=== PATIENT | male | born 1965 | race Caucasian/White ===

== ENCOUNTER 2017-07-11 08:35 | Emergency (ER) | payer OTHER, MEDICAID, SELFPAY ==
[2017-07-11] VITALS (8 sets, daily range): BP systolic 91–147; BP diastolic 46–93; PULSE 55–81; RESP 16–18; TEMP 36.7–37.1; O2SAT 96–100; BMI 26.6
--- NOTE | 2017-07-11 | DI.CT.S_ITS ---
PROCEDURE: CT ABDOMEN PELVIS W CON INDICATIONS: SEVERE PELVIC PAIN, RECENT SURGERY TECHNIQUE: After the administration of oral and intravenous contrast, 5 mm thick sections acquired from the diaphragms to the symphysis. 5 mm thick coronal and sagittal reformats were performed. For radiation dose reduction, the following was used: automated exposure control, adjustment of mA and/or kV according to patient size. COMPARISON: None. FINDINGS: Image quality: Excellent. ABDOMEN: Lung bases: Lung bases are clear. Heart size is normal. Solid organs: Liver is normal in size and enhancement. Gallbladder is unremarkable. Biliary system is non-dilated. Pancreas enhances normally. Spleen is normal in size and enhancement. No adrenal nodules. Kidneys are normal in size and enhancement, without hydronephrosis. Peritoneum and bowel: Stomach, small bowel, and colon loops are normal in caliber and wall thickness. The appendix is thin walled and contrast filled. No free fluid or air. Nodes and vessels: No retroperitoneal or mesenteric adenopathy. Aorta and inferior vena cava are normal in caliber. Miscellaneous: No ventral hernias. PELVIS: Genitourinary: Bladder wall thickness is normal. Miscellaneous: No inguinal adenopathy. There are small bilateral fat-containing inguinal hernias. Bones: No suspicious bony lesions. A small bone island is present within the right femur. No vertebral body compression fractures. IMPRESSION: 1. No acute intra-abdominal findings. Normal appendix. 2. No findings to suggest abscess or pneumoperitoneum after recent bowel surgery. No free pelvic fluid. Dictated by: Vaishnavi Bullock M.D. on 07/11/2017 at 13:01 Approved by: Vaishnavi Bullock M.D. on 07/11/2017 at 13:05
[2017-07-11] MEDS: SODIUM CHLORIDE 0.9% 1,000 ML 150 ML IV (09:50)
[2017-07-11 10:15] LABS: Add Manual Diff / Slide Review NO; Basophils Percent Auto 0.3 % (0-2); Eosinophils Percent Auto 2.2 % (2-4); Hematocrit 42.5 % (41-53); Hemoglobin 14.9 g/dL (13.5-17.5); Lymphocytes Percent Auto 11.9 % (25-40); Mean Corpuscular Hemoglobin 31.5 PG (26-34); Mean Corpuscular Volume 89.8 fL (80-100); Monocytes Percent Auto 6.9 % (3-14); Neutrophils Absolute Auto 7700 /uL (3000-5900); Neutrophils Percent Auto 78.7 % (50-75); Platelet Count 240 X10^3/uL (150-400); Red Blood Cell Count 4.73 X10^6/uL (4.5-5.9); Red Cell Distribution Width 14.4 % (11.6-14.8); White Blood Cell Count 9.8 X10^3/uL (4.5-11.0)
[2017-07-11 10:22] LABS: Alanine Aminotransferase 31 IU/L (21-72); Albumin 4.3 g/dL (3.5-5.0); Albumin Globulin Ratio 1.1 (1.0-2.8); Alkaline Phosphatase 86 U/L (38-126); Aspartate Aminotransferase 25 IU/L (17-59); Bilirubin Total 0.4 mg/dL (0.2-1.3); Calcium 9.2 mg/dL (8.4-10.2); Estimated Glomerular Filt Rate > 60.0 mL/min (>60); Globulin 3.8 g/dL (1.7-4.1); Glucose 104 mg/dL (70-100); HEMOLYSIS < 15 (0-50); Lipase 61 U/L (23-300); Potassium 4.3 mmol/L (3.4-5.1); Sodium 140 mmol/L (137-145); Total Protein 8.1 g/dL (6.3-8.2)
--- NOTE | 2017-07-11 10:22 | PC.NURSE ---
Began Contrast at 10:20
[2017-07-11 10:41] LABS: Lactate (Lactic Acid) 0.8 mmol/L (0.7-2.1)
[2017-07-11 11:06] LABS: Procalcitonin < 0.05 ng/mL (<0.5)
[2017-07-11] MEDS: HYDROMORPHONE 1 MG INJ IV ×2 (12:10→13:30)
[2017-07-11] MEDS: ONDANSETRON 4 MG/2 ML INJ IV (12:10)
--- NOTE | 2017-07-11 14:24 | ED_ITS ---
HPI - Abdominal Pain General Chief Complaint: Abdominal Pain Stated Complaint: COMPLICATIONS FROM BOWEL SURGERY LAST MONTH Time Seen by Provider: 07/11/17 08:42 Source: patient Mode of arrival: ambulatory Limitations: no limitations History of Present Illness HPI narrative: Patient presents to the emergency department today with a chief complaint of severe abdominal pain with subjective fever, chills, nausea and dry heaves. He was straining to have a BM this morning and felt this terrible pain. NPO to food since 1700 last night, liquid since 1800 last night. MD complaint: abdominal pain Onset (ago): hour(s) Pain Consistency: constant Location: suprapubic Severity: moderate Quality: cramping, aching and fullness Radiation: none Migration to: no migration Relieving factors: nothing Exacerbating factors: bowel movement Context: recent surgery/procedure Associated symptoms: nausea, fever and chills Related Data Home Medications Medication Instructions Recorded Confirmed diazepam [Valium] 5 mg PO QID PRN 07/11/17 07/11/17 oxycodone 10 mg PO Q4HP PRN 07/11/17 07/11/17 Previous Rx's Medication Instructions Recorded ondansetron [Zofran ODT] 4 mg PO Q6H PRN #14 tab 07/11/17 oxycodone 5 mg PO Q4-6H PRN #14 cap 07/11/17 Allergies Allergy/AdvReac Type Severity Reaction Status Date / Time No Known Drug Allergies Allergy Verified 07/11/17 08:58 Review of Systems Review of Systems All systems reviewed & are unremarkable except as noted in HPI and below Constitutional Reports chills, Reports fever(s), Denies lethargy and Reports weakness Eyes Denies change in vision, Denies eye discharge, Denies irritation and Denies loss of vision Cardiovascular Denies chest pain, Denies irregular heart rhythm, Denies lightheadedness, Denies palpitations, Denies dyspnea, Denies dyspnea on exertion and Denies orthopnea Respiratory Denies cough, Denies dyspnea, Denies dyspnea on exertion and Denies wheezing Gastrointestinal Gastrointestinal: Reports abdominal pain, Denies change in bowel habits, Denies diarrhea, Reports nausea and Denies vomiting Genitourinary Denies hematuria, Denies flank pain, Denies urinary incontinence and Denies urinary urgency Musculoskeletal Denies back pain, Denies muscle weakness, Denies numbness and Denies tingling Integumentary/Breasts Denies pruritus, Denies erythema, Denies rash and Denies wounds Neurologic Denies confusion, Denies loss of vision, Denies numbness, Denies tingling and Reports weakness Psychiatric Denies anxiety, Denies confusion, Denies depression, Denies homicidal ideation and Denies suicidal ideation Endocrine Denies palpitations Allergic/Immunologic Denies wheezing PFSH Surgical History History of bowel resection (Acute) History of hemorrhoidectomy (Acute) Family History Father Hyperlipidemia Heart disease Mother Diabetes mellitus Hyperlipidemia Heart disease Social History Smoking Status: Current every day smoker Exam Narrative Exam Narrative: Pleasant 52-year-old male appears unwell and clutching the lower abdomen and pain Const General: cooperative, well developed and acute distress Nutritional Appearance: well nourished Orientation: alert, awake, oriented x3 and not confused HENMT Head: normocephalic and atraumatic Ears: external ears normal and TM's normal bilaterally Nose: external nose normal and No nasal discharge Face and sinus: sinuses nontender, face symmetric, no sinus tenderness and No dry mucous membranes Mouth: oral mucosae normal and moist mucous membranes Teeth and gingiva: dentition normal Throat: tonsils normal and uvula midline Eyes General: appearance normal, both eyes and all related structures Eyelids: eyelids normal Conjunctivae: conjunctivae normal Sclera: sclerae normal Pupils: PERRL EOM: EOM intact bilaterally Resp Effort & Inspection: normal respiratory effort, able to speak in complete sentences, no respiratory distress and no use of accessory muscles Auscultation: clear to auscultation bilaterally, no rales, no rhonchi and no wheezes GI Inspection: non-distended Palpation: soft, no hepatosplenomegaly, guarding, No pulsatile mass and No tender Auscultation: normal bowel sounds Rectal Exam: visual inspection normal, normal sphincter tone, No abnormal stool , No fissure, No heme positive stool, No hemorrhoids, No laceration and No mass Back/Spine/Pelvis Back: No CVA tenderness Cervical Spine: cervical ROM normal and No pain with cervical ROM Thoracic/Lumbar Spine: thoracic and lumbar spine normal to inspection Neuro General: alert, awake and oriented x3 Speech: speech normal Motor: muscle tone normal throughout Extrem General: full ROM, no clubbing, cyanosis or edema, no pedal edema and no calf tenderness MDM - Abdominal Pain Differential Diagnosis Differential diagnosis: Likely abdominal pain, constipation and small bowel obstruction Medical Records Attestation: I reviewed the patient's medical records. Lab Data Result diagrams: 07/11/17 09:50 07/11/17 09:50 Lab Results 07/11/17 07/11/17 07/11/17 Range/Units 09:50 09:50 09:50 WBC 9.8 (4.5-11.0) X10^3/uL RBC 4.73 (4.5-5.9) X10^6/uL Hgb 14.9 (13.5-17.5) g/dL Hct 42.5 (41-53) % MCV 89.8 (80-100) fL MCH 31.5 (26-34) PG MCHC 35.0 (30-36) % RDW 14.4 (11.6-14.8) % Plt Count 240 (150-400) X10^3/uL Neut % (Auto) 78.7 H (50-75) % Lymph % (Auto) 11.9 L (25-40) % [place] % (Auto) 6.9 (3-14) % Eos % (Auto) 2.2 (2-4) % Baso % (Auto) 0.3 (0-2) % Neut # (Auto) 7700 H (5330-6594) /uL Sodium 140 (137-145) mmol/L Potassium 4.3 (3.4-5.1) mmol/L Chloride 105.0 (98-107) mmol/L Carbon Dioxide 25.0 (22-32) mmol/L BUN 18.0 (9-20) mg/dL Creatinine 0.90 (0.66-1.25) mg/dL Estimated GFR > 60.0 (>60) mL/min BUN/Creatinine Ratio 20.0 (6-22) Glucose 104 H (70-100) mg/dL Lactate (0.7-2.1) mmol/L Calcium 9.2 (8.4-10.2) mg/dL Total Bilirubin 0.4 (0.2-1.3) mg/dL AST 25 (17-59) IU/L ALT 31 (21-72) IU/L Alkaline Phosphatase 86 (38-126) U/L Total Protein 8.1 (6.3-8.2) g/dL Albumin 4.3 (3.5-5.0) g/dL Globulin 3.8 (1.7-4.1) g/dL Albumin/Globulin Ratio 1.1 (1.0-2.8) Lipase 61 (23-300) U/L Procalcitonin < 0.05 (<0.5) ng/mL 07/11/17 Range/Units 10:15 WBC (4.5-11.0) X10^3/uL RBC (4.5-5.9) X10^6/uL Hgb (13.5-17.5) g/dL Hct (41-53) % MCV (80-100) fL MCH (26-34) PG MCHC (30-36) % RDW (11.6-14.8) % Plt Count (150-400) X10^3/uL Neut % (Auto) (50-75) % Lymph % (Auto) (25-40) % [place] % (Auto) (3-14) % Eos % (Auto) (2-4) % Baso % (Auto) (0-2) % Neut # (Auto) (4880-9297) /uL Sodium (137-145) mmol/L Potassium (3.4-5.1) mmol/L Chloride (98-107) mmol/L Carbon Dioxide (22-32) mmol/L BUN (9-20) mg/dL Creatinine (0.66-1.25) mg/dL Estimated GFR (>60) mL/min BUN/Creatinine Ratio (6-22) Glucose (70-100) mg/dL Lactate 0.8 (0.7-2.1) mmol/L Calcium (8.4-10.2) mg/dL Total Bilirubin (0.2-1.3) mg/dL AST (17-59) IU/L ALT (21-72) IU/L Alkaline Phosphatase (38-126) U/L Total Protein (6.3-8.2) g/dL Albumin (3.5-5.0) g/dL Globulin (1.7-4.1) g/dL Albumin/Globulin Ratio (1.0-2.8) Lipase (23-300) U/L Procalcitonin (<0.5) ng/mL Imaging Data CT scan - abdomen: Radiologist's impression: PROCEDURE: CT ABDOMEN PELVIS W CON INDICATIONS: SEVERE PELVIC PAIN, RECENT SURGERY TECHNIQUE: After the administration of oral and intravenous contrast, 5 mm thick sections acquired from the diaphragms to the symphysis. 5 mm thick coronal and sagittal reformats were performed. For radiation dose reduction, the following was used: automated exposure control, adjustment of mA and/or kV according to patient size. COMPARISON: None. FINDINGS: Image quality: Excellent. ABDOMEN: Lung bases: Lung bases are clear. Heart size is normal. Solid organs: Liver is normal in size and enhancement. Gallbladder is unremarkable. Biliary system is non-dilated. Pancreas enhances normally. Spleen is normal in size and enhancement. No adrenal nodules. Kidneys are normal in size and enhancement, without hydronephrosis. Peritoneum and bowel: Stomach, small bowel, and colon loops are normal in caliber and wall thickness. The appendix is thin walled and contrast filled. No free fluid or air. Nodes and vessels: No retroperitoneal or mesenteric adenopathy. Aorta and inferior vena cava are normal in caliber. Miscellaneous: No ventral hernias. PELVIS: Genitourinary: Bladder wall thickness is normal. Miscellaneous: No inguinal adenopathy. There are small bilateral fat- containing inguinal hernias. Bones: No suspicious bony lesions. A small bone island is present within the right femur. No vertebral body compression fractures. IMPRESSION: 1. No acute intra-abdominal findings. Normal appendix. 2. No findings to suggest abscess or pneumoperitoneum after recent bowel surgery. No free pelvic fluid. Dictated by: Vaishnavi Bullock M.D. on 07/11/2017 at 13:01 Approved by: Vaishnavi Bullock M.D. on 07/11/2017 at 13:05 Course Orders Ordered: ED Orders 07/11/17 09:50 Complete Blood Count AUTO DIFF Stat Comprehensive Metabolic Panel Stat Lipase Stat Procalcitonin Stat 07/11/17 10:13 CT abdomen pelvis w con Stat 07/11/17 10:15 Blood Culture Stat Lactate (Lactic Acid) Stat Discontinued Medications Hydromorphone HCl (Dilaudid) 1 mg IV NOW ONE Stop: 07/11/17 12:00 Last Admin: 07/11/17 12:10 Dose: 1 mg Hydromorphone HCl (Dilaudid) 1 mg IV NOW ONE Stop: 07/11/17 13:15 Last Admin: 07/11/17 13:30 Dose: 1 mg Sodium Chloride (Normal Saline 0.9%) 1,000 mls @ 150 mls/hr IV CONT ERNESTINE Last Infusion: 07/11/17 12:53 Dose: 0 mls/hr Admin: 07/11/17 09:50 Dose: 150 mls/hr Ondansetron HCl (Zofran) 4 mg IV Q4HR PRN PRN Reason: Nausea And Vomiting Last Admin: 07/11/17 12:10 Dose: 4 mg Consultations Consultation #1: Page to Radiology to discuss most appropriate imaging Time: 09:34 Consultation #2: I've had a discussion with [facility] surgery at regarding patient history, physical, labs and CT scan. They have no specific recommendations and are thankful for our thorough evaluation. They will reach out to the patient at home over the next few days for follow-up Time: 14:20 Last Vital Signs Temp 98.7 F 07/11/17 14:29 Pulse 81 07/11/17 14:29 Resp 16 07/11/17 14:29 BP 99/53 L 07/11/17 14:29 Pulse Ox 99 07/11/17 14:29 Discharge Plan Departure Patient Disposition: Home, Self-Care Clinical Impression: Acute pelvic pain Discharge Date/Time: 07/11/17 14:37 Interventions: ED Discharge Assessment Last Done: 07/11/17 14:31 Instructions: DI for Abdominal Pain-Adult Activity Restrictions/Additional Instructions: Your surgeons from have been notified. They will reach out to you in the next few days to arrange for follow up. Please return for worsening symptoms You have been prescribed narcotic medications. While on these medications you cannot drive or operate heavy machinery. Additionally you cannot sign legal documents or perform any duties such as this. Many people get constipated on narcotic medications so it would be advisable to discuss stool softeners with the pharmacist when you rock picker your prescription. Please understand that we cannot provide further refills of narcotics or controlled substances through the ED and your pain management will need to be through your Primary Care Provider Prescriptions: New oxycodone 5 mg capsule 5 mg PO Q4-6H PRN (Reason: pain) Qty: 14 RF: 0 ondansetron [Zofran ODT] 4 mg tablet,disintegrating 4 mg PO Q6H PRN (Reason: nausea and vomiting) Qty: 14 RF: 0 No Action diazepam [Valium] 5 mg Tablet 5 mg PO QID PRN (Reason: Spasms) RF: 0 oxycodone 10 MG tablet 10 mg PO Q4HP PRN (Reason: Pain (Scale Score 7-10)) RF: 0 Referrals: Brayden Hurst MD [Primary Care Provider] -
== END 2017-07-11 14:37 | disposition home or self-care (01) ==
PROVIDERS: Emergency Provider Emergency Medicine; Family Provider Family Medicine; PCP Family Medicine
DX: R10.2 Pelvic and perineal pain (principal)
CPT/HCPCS: 36591; 74177; 80053; 81003; 83605; 83690; 84145; 85025; 87040; 96374; 96375; 96376; 99284; 99285; J1170; J2405; Q9967

== ENCOUNTER 2017-09-17 03:25 | Emergency (ER) | payer OTHER, MEDICAID, SELFPAY ==
[2017-09-17 03:33] VITALS: BP 140/93; PULSE 74; RESP 18; TEMP 36.4; O2SAT 97; BMI 25.8
--- NOTE | 2017-09-17 03:54 | ED_ITS ---
HPI - Extremity Problem General Chief complaint: Extremity Problem,Nontraumatic Stated complaint: GOUT ATTACK Time Seen by Provider: 09/17/17 03:26 Source: patient and family Mode of arrival: ambulatory Limitations: no limitations History of Present Illness HPI Narrative: 52M with history of gout presents with severe pain in L ankle in absence of injury. Patient reports severe pain that woke him from sleep. He denies fever, chills, N/V. He took two Colchicine without relief. He denies any on going infection. Historically is gouty attacks are in the great toe, ankle or knee. MD Complaint: extremity pain Onset (ago): hour(s) Pain Consistency: constant Location: left Quality: burning and stabbing Radiation: none Relieving factors: nothing Exacerbating factors: range of motion, weight bearing and walking Associated symptoms: denies other symptoms Related Data Home Medications Medication Instructions Recorded Confirmed oxycodone 10 mg PO Q4HP PRN 07/11/17 07/11/17 colchicine 1.2 mg PO DAILY 09/17/17 09/17/17 Previous Rx's Medication Instructions Recorded ondansetron [Zofran ODT] 4 mg PO Q6H PRN #14 tab 07/11/17 oxycodone 5 mg PO Q4-6H PRN #14 cap 07/11/17 diazepam 5 mg tablet 5 mg PO QID PRN #90 tab 09/07/17 indomethacin 50 mg PO TID PRN #14 cap 09/17/17 Allergies Allergy/AdvReac Type Severity Reaction Status Date / Time No Known Drug Allergies Allergy Verified 07/11/17 08:58 Review of Systems Review of Systems All systems reviewed & are unremarkable except as noted in HPI and below Constitutional Denies chills, Denies fever(s), Denies lethargy and Denies weakness Eyes Denies change in vision, Denies eye discharge, Denies irritation and Denies loss of vision ENT Ears, Nose, Mouth, and Throat: Denies change in voice, Denies neck pain and Denies sore throat Cardiovascular Denies chest pain, Denies irregular heart rhythm, Denies lightheadedness, Denies palpitations, Denies dyspnea, Denies dyspnea on exertion and Denies orthopnea Respiratory Denies cough, Denies dyspnea, Denies dyspnea on exertion and Denies wheezing Gastrointestinal Gastrointestinal: Denies abdominal pain, Denies change in bowel habits, Denies diarrhea, Denies nausea and Denies vomiting Genitourinary Denies hematuria, Denies flank pain, Denies urinary incontinence and Denies urinary urgency Musculoskeletal Reports arthralgias, Reports joint swelling, Reports limited range of motion and Denies neck pain Integumentary/Breasts Denies pruritus, Reports erythema, Denies rash and Denies wounds Neurologic Denies confusion, Denies loss of vision and Denies weakness Psychiatric Denies anxiety, Denies confusion, Denies depression, Denies homicidal ideation and Denies suicidal ideation Endocrine Denies palpitations Hematologic/Lymphatic Denies easy bruising Allergic/Immunologic Denies wheezing PFSH Surgical History History of bowel resection (Acute) History of hemorrhoidectomy (Acute) Family History Father Hyperlipidemia Heart disease Mother Diabetes mellitus Hyperlipidemia Heart disease Social History Smoking Status: Current every day smoker Exam Narrative Exam Narrative: 52-year-old male in obvious distress, complaining of significant pain in his ankle Initial Vital Signs Initial Vital Signs: Vital Signs Temperature 97.5 F L 09/17/17 03:33 Pulse Rate 74 09/17/17 03:33 Respiratory Rate 18 09/17/17 03:33 Blood Pressure 140/93 H 09/17/17 03:33 Pulse Oximetry 97 09/17/17 03:33 Const General: cooperative, well developed and acute distress Nutritional Appearance: well nourished Orientation: alert, awake, oriented x3 and not confused [facility] Head: normocephalic and atraumatic Ears: external ears normal and TM's normal bilaterally Nose: external nose normal and No nasal discharge Face and sinus: sinuses nontender, face symmetric, no sinus tenderness and No dry mucous membranes Mouth: oral mucosae normal and moist mucous membranes Teeth and gingiva: dentition normal Throat: tonsils normal and uvula midline Eyes General: appearance normal, both eyes and all related structures Eyelids: eyelids normal Conjunctivae: conjunctivae normal Sclera: sclerae normal Pupils: PERRL EOM: EOM intact bilaterally Neck Neck: normal visual inspection, trachea midline, No lymphadenopathy, No midline deformity and No JVD Lymphatic: No lymphedema Chest Chest: normal inspection of the chest Resp Effort & Inspection: normal respiratory effort, able to speak in complete sentences, no respiratory distress and no use of accessory muscles Auscultation: clear to auscultation bilaterally, no rales, no rhonchi and no wheezes Cardio Rate: regular rate Rhythm: regular rhythm Heart Sounds: no click, no gallops, no murmurs and no rubs Pulses: normal peripheral pulses GI Inspection: non-distended Palpation: soft, no hepatosplenomegaly, No guarding, No pulsatile mass and No tender Auscultation: normal bowel sounds Back/Spine/Pelvis Back: No CVA tenderness Cervical Spine: cervical ROM normal and No pain with cervical ROM Thoracic/Lumbar Spine: thoracic and lumbar spine normal to inspection Skin General: no rashes or lesions noted, erythema, No jaundice, No petechiae and warm Neuro General: alert, oriented x3, gait normal and no focal motor deficits Speech: speech normal Extrem General: full ROM, no clubbing, cyanosis or edema, no pedal edema and no calf tenderness Left lower extremity: ankle (Erythema, pain and swelling of ankle. Warm to touch) Psych Appearance: well kempt Mental Status: mental status grossly normal Attitude: cooperative Thought Content: normal and suicidality Judgment: judgment good Procedures Joint Aspiration Joint Asp./Inject. 1: Time Out Performed: Yes Side of body: left Joint Aspirated: ankle Ultrasound Guidance: No Skin Prep: Chlorhexidine Local Anesthetic: lidocaine 1% and with bicarb Amount of anesthesia used (mL): 4 Needle Size Used: 22G Fluid Obtained: clear Total fluid obtained (mL): 2 Patient Tolerated Procedure: Well Complications: none Course Orders Ordered: ED Orders 09/17/17 04:03 Basic Metabolic Panel Stat C-Reactive Protein Quant Stat Cell Count w Diff Body Fluid Stat Complete Blood Count AUTO DIFF Stat Erythrocyte Sedimentation Rate Stat Procalcitonin Stat Uric Acid Stat 09/17/17 04:08 Body Fluid Culture Stat Crystals Body Fluid Stat Discontinued Medications Indomethacin (Indocin) 50 mg PO NOW ONE Stop: 09/17/17 03:49 Last Admin: 09/17/17 04:03 Dose: 50 mg Ketorolac Tromethamine (Toradol) 60 mg IM NOW ONE Stop: 09/17/17 03:49 Last Admin: 09/17/17 04:02 Dose: 60 mg Oxycodone/Acetaminophen (Endocet 5/325 Prepack) 1 bottle MISC SEEINSTR ONE Stop: 09/17/17 05:17 Last Admin: 09/17/17 05:25 Dose: 1 bottle Vital Signs - 8 hr 09/17/17 03:33 09/17/17 04:35 Temperature 97.5 F L Pulse Rate 74 72 Respiratory Rate 18 18 Blood Pressure 140/93 H Blood Pressure [Left Arm] 137/89 H Pulse Oximetry 97 98 MDM - Extremity (Nontraumatic) Lab Data Result diagrams: 09/17/17 04:03 09/17/17 04:03 Lab Results 09/17/17 09/17/17 09/17/17 Range/Units 04:03 04:03 04:03 WBC 11.6 H (4.5-11.0) X10^3/uL RBC 4.72 (4.5-5.9) X10^6/uL Hgb 14.4 (13.5-17.5) g/dL Hct 42.3 (41-53) % MCV 89.5 (80-100) fL MCH 30.5 (26-34) PG MCHC 34.1 (30-36) % RDW 14.6 (11.6-14.8) % Plt Count 273 (150-400) X10^3/uL Neut % (Auto) 73.4 (50-75) % Lymph % (Auto) 12.0 L (25-40) % [place] % (Auto) 10.1 (3-14) % Eos % (Auto) 4.1 H (2-4) % Baso % (Auto) 0.4 (0-2) % Neut # (Auto) 8500 H (0578-1210) /uL ESR 13 (0-15) MM/HR Sodium 142 (137-145) mmol/L Potassium 4.4 (3.4-5.1) mmol/L Chloride 103 (98-107) mmol/L Carbon Dioxide 28 (22-32) mmol/L BUN 11 (9-20) mg/dL Creatinine 1.00 (0.66-1.25) mg/dL Estimated GFR > 60.0 (>60) mL/min BUN/Creatinine Ratio 11.0 (6-22) Glucose 93 (70-100) mg/dL Uric Acid 7.6 (3.5-8.5) mg/dL Calcium 9.5 (8.4-10.2) mg/dL C-Reactive Protein 1.9 H (<1.0) mg/dL Procalcitonin < 0.05 (<0.5) ng/mL Fluid Color Fluid Appearance Fluid RBC /uL Fld Tot Nucleated Cell /uL Fluid Polynuclear WBCs % Fluid Mononuclear WBCs Fluid Eosinophils Body Fluid Clot 09/17/17 Range/Units 04:03 WBC (4.5-11.0) X10^3/uL RBC (4.5-5.9) X10^6/uL Hgb (13.5-17.5) g/dL Hct (41-53) % MCV (80-100) fL MCH (26-34) PG MCHC (30-36) % RDW (11.6-14.8) % Plt Count (150-400) X10^3/uL Neut % (Auto) (50-75) % Lymph % (Auto) (25-40) % [place] % (Auto) (3-14) % Eos % (Auto) (2-4) % Baso % (Auto) (0-2) % Neut # (Auto) (2530-2502) /uL ESR (0-15) MM/HR Sodium (137-145) mmol/L Potassium (3.4-5.1) mmol/L Chloride (98-107) mmol/L Carbon Dioxide (22-32) mmol/L BUN (9-20) mg/dL Creatinine (0.66-1.25) mg/dL Estimated GFR (>60) mL/min BUN/Creatinine Ratio (6-22) Glucose (70-100) mg/dL Uric Acid (3.5-8.5) mg/dL Calcium (8.4-10.2) mg/dL C-Reactive Protein (<1.0) mg/dL Procalcitonin (<0.5) ng/mL Fluid Color [place] Fluid Appearance Cloudy Fluid RBC 5331 /uL Fld Tot Nucleated Cell 3416 /uL Fluid Polynuclear WBCs 100 % Fluid Mononuclear WBCs Not Reportable Fluid Eosinophils Not Reportable Body Fluid Clot No clots present MDM Narrative Medical decision making narrative: DDx includes gout, cellulitis, septic arthritis, DVT vs. other Gout: painful, swollen, hx of same under similar conditions Septic arthritis: thought unlikely given arthocentesis findings Discharge Plan Departure Patient Disposition: Home, Self-Care Clinical Impression: Gout Instructions: DI for Gout Activity Restrictions/Additional Instructions: *You have been diagnosed with [ with acute gouty arthritis ] *What to do: *Take medications as directed *Follow up with your primary care provider in 2-3 days, call for an appointment. Let them know you were seen in the Emergency Department and that we ask that you be seen in follow up *Return to ER if you should have any new, worsening or concerning symptoms , such as [increasing pain, red streaks working up the leg, fever over 101 F, shaking chills, persistent vomiting, or other bothersome symptoms ] Prescriptions: New indomethacin 50 mg capsule 50 mg PO TID PRN (Reason: pain) Qty: 14 RF: 0 No Action diazepam [Valium] 5 mg tablet 5 mg PO QID PRN (Reason: Spasms) Qty: 90 RF: 0 oxycodone 10 MG tablet 10 mg PO Q4HP PRN (Reason: Pain (Scale Score 7-10)) RF: 0 oxycodone 5 mg capsule 5 mg PO Q4-6H PRN (Reason: pain) Qty: 14 RF: 0 ondansetron [Zofran ODT] 4 mg tablet,disintegrating 4 mg PO Q6H PRN (Reason: nausea and vomiting) Qty: 14 RF: 0 colchicine 0.6 mg Capsule 1.2 mg PO DAILY RF: 0
[2017-09-17] MEDS: KETOROLAC 60 MG/2 ML VIAL IM (04:02)
[2017-09-17] MEDS: INDOMETHACIN 25 MG CAPSULE 50 MG PO (04:03)
[2017-09-17 04:20] LABS: Add Manual Diff / Slide Review NO; Basophils Percent Auto 0.4 % (0-2); Eosinophils Percent Auto 4.1 % (2-4); Hematocrit 42.3 % (41-53); Hemoglobin 14.4 g/dL (13.5-17.5); Mean Corpuscular HGB Conc 34.1 % (30-36); Mean Corpuscular Hemoglobin 30.5 PG (26-34); Mean Corpuscular Volume 89.5 fL (80-100); Monocytes Percent Auto 10.1 % (3-14); Neutrophils Absolute Auto 8500 /uL (3000-5900); Neutrophils Percent Auto 73.4 % (50-75); Platelet Count 273 X10^3/uL (150-400); Red Blood Cell Count 4.72 X10^6/uL (4.5-5.9); Red Cell Distribution Width 14.6 % (11.6-14.8); White Blood Cell Count 11.6 X10^3/uL (4.5-11.0)
[2017-09-17 04:35] VITALS: BP 137/89; PULSE 72; RESP 18; O2SAT 98
[2017-09-17 04:53] LABS: Body Fluid Appearance CLOUDY; Body Fluid Color PINK
[2017-09-17 04:54] LABS: Body Fluid Clotted? NO CLOTS PRESENT
[2017-09-17 04:56] LABS: Body Fluid Tot Nucleated Cells 3416 /uL
[2017-09-17 04:57] LABS: Body Fluid Red Blood Cells 5331 /uL; Erythrocyte Sedimentation Rate 13 MM/HR (0-15)
[2017-09-17 05:10] LABS: Blood Urea Nitrogen 11 mg/dL (9-20); C-Reactive Protein Quant 1.9 mg/dL (<1.0); Calcium 9.5 mg/dL (8.4-10.2); Carbon Dioxide 28 mmol/L (22-32); Chloride 103 mmol/L (98-107); Estimated Glomerular Filt Rate > 60.0 mL/min (>60); Glucose 93 mg/dL (70-100); HEMOLYSIS < 15 (0-50); Potassium 4.4 mmol/L (3.4-5.1); Sodium 142 mmol/L (137-145); Uric Acid 7.6 mg/dL (3.5-8.5)
[2017-09-17 05:14] LABS: Polynuclear WBC Body Fluid 100 %
[2017-09-17] MEDS: OXYCODONE/APAP 5/325 PREPACK 1 BOTTLE MISC (05:25)
[2017-09-17 05:26] LABS: Procalcitonin < 0.05 ng/mL (<0.5)
[2017-09-17 05:37] VITALS: BP 122/70; PULSE 72; RESP 16; O2SAT 99
== END 2017-09-17 05:38 | disposition home or self-care (01) ==
PROVIDERS: Emergency Provider Emergency Medicine; Family Provider Family Medicine; PCP Family Medicine
DX: M10.9 Gout, unspecified (principal)
CPT/HCPCS: 20605; 36415; 80048; 84145; 84550; 85025; 85651; 86140; 89051; 89060; 96372; 99282; 99283; J1885

== ENCOUNTER 2018-01-01 15:34 | Emergency (ER) | payer OTHER, MEDICAID, SELFPAY ==
[2018-01-01 15:49] VITALS: BP 114/77; PULSE 75; RESP 18; TEMP 36.7; O2SAT 100
--- NOTE | 2018-01-01 16:19 | DI.RAD.S_ITS ---
PROCEDURE: XR ABDOMEN 1V INDICATIONS: abd pain, change in stool TECHNIQUE: One view of the abdomen acquired. COMPARISON: None. FINDINGS: Surgical changes and devices: None. Bowel: Bowel gas pattern is normal. Soft tissues: No suspicious abdominal calcifications. Visualized solid organ contours appear normal in size. Bones: No suspicious bony lesions. Dextroscoliosis centered at L2. Multilevel disc degeneration throughout the lumbar spine. IMPRESSION: No evidence of bowel obstruction. Dictated by: Deshawn Simms M.D. on 01/01/2018 at 17:04 Approved by: Deshawn Simms M.D. on 01/01/2018 at 17:05
[2018-01-01 16:34] LABS: Add Manual Diff / Slide Review NO; Basophils Percent Auto 0.5 % (0-2); Eosinophils Percent Auto 7.4 % (2-4); Hematocrit 40.2 % (41-53); Hemoglobin 13.4 g/dL (13.5-17.5); Lymphocytes Percent Auto 31.4 % (25-40); Mean Corpuscular HGB Conc 33.3 % (30-36); Mean Corpuscular Hemoglobin 30.6 PG (26-34); Mean Corpuscular Volume 91.8 fL (80-100); Monocytes Percent Auto 10.3 % (3-14); Neutrophils Absolute Auto 3700 /uL (3000-5900); Neutrophils Percent Auto 50.4 % (50-75); Platelet Count 226 X10^3/uL (150-400); Red Blood Cell Count 4.38 X10^6/uL (4.5-5.9); Red Cell Distribution Width 14.4 % (11.6-14.8); White Blood Cell Count 7.4 X10^3/uL (4.5-11.0)
[2018-01-01 16:59] LABS: Alanine Aminotransferase 33 IU/L (21-72); Albumin 4.4 g/dL (3.5-5.0); Albumin Globulin Ratio 1.3 (1.0-2.8); Alkaline Phosphatase 77 U/L (38-126); Aspartate Aminotransferase 39 IU/L (17-59); Bilirubin Total 0.2 mg/dL (0.2-1.3); Blood Urea Nitrogen 17 mg/dL (9-20); Calcium 9.3 mg/dL (8.4-10.2); Carbon Dioxide 28 mmol/L (22-32); Chloride 104 mmol/L (98-107); Estimated Glomerular Filt Rate > 60.0 mL/min (>60); Globulin 3.4 g/dL (1.7-4.1); Glucose 72 mg/dL (70-100); HEMOLYSIS < 15 (0-50); Lipase 76 U/L (23-300); Sodium 143 mmol/L (137-145); Total Protein 7.8 g/dL (6.3-8.2)
--- NOTE | 2018-01-01 17:26 | ED.ABDPAIN ---
HPI - Abdominal Pain <RE Saha-BC - Last Filed: 01/01/18 17:42> General Chief Complaint: Abdominal Pain Stated Complaint: LEFT SIDE PAIN Time Seen by Provider: 01/01/18 15:54 Source: patient Mode of arrival: ambulatory Limitations: no limitations History of Present Illness HPI narrative: Patient is a 52-year-old male who presents with chief complaint of ?I think I have a hernia. Patient states that he would like imaging to confirm the hernia. He denies any nausea, vomiting, diarrhea, fever. He denies any chest pain shortness of breath chills. He states he had a tearing sensation and burning at his left inguinal area 2 days ago when this started. Now he has pain at the location when doing physical activity. He states he can feel a poking out more when he stands up. He states that his stools are thinner. He denies any other abdominal pain. Related Data Home Medications Medication Instructions Recorded Confirmed colchicine 1.2 mg PO DAILY 09/17/17 01/03/18 Previous Rx's Medication Instructions Recorded ondansetron [Zofran ODT] 4 mg PO Q6H PRN #14 tab 07/11/17 indomethacin 50 mg PO TID PRN #14 cap 09/17/17 trazodone 50 mg tablet 50 mg PO .hs #30 tab 09/21/17 diazepam 5 mg tablet 5 mg PO BID PRN 30 Days #60 tab 01/03/18 tramadol 50 mg tablet 50 mg PO Q6H #60 tab 01/03/18 Allergies Allergy/AdvReac Type Severity Reaction Status Date / Time No Known Drug Allergies Allergy Verified 01/03/18 10:53 Review of Systems <CARLOS A Saha - Last Filed: 01/01/18 17:42> Review of Systems GENERAL: Denies chills, fatigue, malaise, fever, sweats. HEENT: Denies sinus pain, ear pain, sore throat, difficulty swallowing, dizziness. RESPIRATORY: Denies dyspnea, cough, wheezing, hemoptysis, sputum. CARDIOVASCULAR: Denies chest pain, palpitations, orthopnea, edema, GASTROINTESTINAL: See HPI : Denies dysuria, frequency, incontinence, hematuria, urinary retention. MUSCULOSKELETAL: denies weakness, joint pain, or bony pain SKIN: Denies rash, skin lesions, or other NEUROLOGIC: Denies weakness, headache, numbness, change in speech, confusion, seizures, incoordination. PSYCHIATRIC: No concerning psychosocial issues. 12 point review of systems is negative except for those stated above Exam <FRANCOIS Saha - Last Filed: 01/01/18 17:42> Narrative Exam Narrative: GENERAL: This is a well-nourished, well-developed patient, in no acute distress HEAD: Atraumatic. Normocephalic. No temporal or scalp tenderness. EYES: Pupils equal round and reactive. Extraocular motions intact. No scleral icterus. No injection or drainage. ENT: Nose without bleeding, purulent drainage or septal hematoma. Throat without erythema, tonsillar hypertrophy or exudate. Uvula midline. Airway patent. NECK: Trachea midline. No JVD or lymphadenopathy. Supple, nontender, no meningeal signs. CARDIOVASCULAR: Regular rate and rhythm without murmurs, gallops, or rubs. RESPIRATORY: Clear to auscultation. Breath sounds equal bilaterally. No wheezes, rales, or rhonchi. GASTROINTESTINAL: Abdomen soft, non-tender, nondistended. No hepato-splenomegaly, or palpable masses. No guarding. Active bowel sounds all 4 quadrants. Palpable hernia left inguinal which is soft. Reduces easily. Smaller when patient is standing. EXTREMITIES: No clubbing, cyanosis, or edema. No joint tenderness, effusion, or edema noted. BACK: Nontender without deformity or crepitance. No flank tenderness. NEURO: AOx3. SKIN: No rash or erythema. Initial Vital Signs Initial Vital Signs: Vital Signs Temperature 98.1 F 01/01/18 15:49 Pulse Rate 75 01/01/18 15:49 Respiratory Rate 18 01/01/18 15:49 Blood Pressure 114/77 01/01/18 15:49 Pulse Oximetry 100 01/01/18 15:49 <Kelly Coyle DO - Last Filed: 01/04/18 16:04> Initial Vital Signs Initial Vital Signs: Vital Signs Temperature 98.1 F 01/01/18 15:49 Pulse Rate 75 01/01/18 15:49 Respiratory Rate 18 01/01/18 15:49 Blood Pressure 114/77 01/01/18 15:49 Pulse Oximetry 100 01/01/18 15:49 Course <FRANCOIS Saha - Last Filed: 01/01/18 17:42> Orders Ordered: ED Orders 01/01/18 16:19 XR abdomen 1V Stat 01/01/18 16:25 Complete Blood Count AUTO DIFF Stat Comprehensive Metabolic Panel Stat Lipase Stat Vital Signs - 8 hr 01/01/18 15:49 Temperature 98.1 F Pulse Rate 75 Respiratory Rate 18 Blood Pressure 114/77 Pulse Oximetry 100 <Kelly Coyle DO - Last Filed: 01/04/18 16:04> Orders Ordered: ED Orders 01/01/18 16:19 XR abdomen 1V Stat 01/01/18 16:25 Complete Blood Count AUTO DIFF Stat Comprehensive Metabolic Panel Stat Lipase Stat Vital Signs - 8 hr 01/01/18 15:49 Temperature 98.1 F Pulse Rate 75 Respiratory Rate 18 Blood Pressure 114/77 Pulse Oximetry 100 MDM - Abdominal Pain <FRANCOIS Saha - Last Filed: 01/01/18 17:42> Lab Data Attestation: I reviewed the patient's lab results. Result diagrams: 01/01/18 16:25 01/01/18 16:25 Lab Results 01/01/18 01/01/18 Range/Units 16:25 16:25 WBC 7.4 (4.5-11.0) X10^3/uL RBC 4.38 L (4.5-5.9) X10^6/uL Hgb 13.4 L (13.5-17.5) g/dL Hct 40.2 L (41-53) % MCV 91.8 (80-100) fL MCH 30.6 (26-34) PG MCHC 33.3 (30-36) % RDW 14.4 (11.6-14.8) % Plt Count 226 (150-400) X10^3/uL Neut % (Auto) 50.4 (50-75) % Lymph % (Auto) 31.4 (25-40) % [place] % (Auto) 10.3 (3-14) % Eos % (Auto) 7.4 H (2-4) % Baso % (Auto) 0.5 (0-2) % Neut # (Auto) 3700 (4196-8979) /uL Sodium 143 (137-145) mmol/L Potassium 4.0 (3.4-5.1) mmol/L Chloride 104 (98-107) mmol/L Carbon Dioxide 28 (22-32) mmol/L BUN 17 (9-20) mg/dL Creatinine 1.00 (0.66-1.25) mg/dL Estimated GFR > 60.0 (>60) mL/min BUN/Creatinine Ratio 17.0 (6-22) Glucose 72 (70-100) mg/dL Calcium 9.3 (8.4-10.2) mg/dL Total Bilirubin 0.2 (0.2-1.3) mg/dL AST 39 (17-59) IU/L ALT 33 (21-72) IU/L Alkaline Phosphatase 77 (38-126) U/L Total Protein 7.8 (6.3-8.2) g/dL Albumin 4.4 (3.5-5.0) g/dL Globulin 3.4 (1.7-4.1) g/dL Albumin/Globulin Ratio 1.3 (1.0-2.8) Lipase 76 (23-300) U/L Point of care testing: Urine Dip Bedside Urine Glucose Negative Bedside Urine Bilirubin - Negative Bedside Urine Ketone - Negative Urine Specific [place] 1.025 Bedside Urine Occult Blood - Negative Bedside Urine pH 6.0 Bedside Urine Protein - Negative Bedside Urine Urobilinogen - Negative Bedside Urine Nitrite - Negative Bedside Urine Leukocytes - Negative Esterase Imaging Data Abdominal x-ray: Radiologist's impression: [place] [address] XRay Report Signed Patient: Carson Kumar JMR#: [id number] : 1965Acct:[id number] Age/Sex: 52 / MDate of Service: 01/01/18 Loc: ED Accession Number: [id number] Procedure: XR abdomen 1V Ordering Provider: Kelly Dickerson PROCEDURE: XR ABDOMEN 1V INDICATIONS: abd pain, change in stool TECHNIQUE: One view of the abdomen acquired. COMPARISON: None. FINDINGS: Surgical changes and devices: None. Bowel: Bowel gas pattern is normal. Soft tissues: No suspicious abdominal calcifications. Visualized solid organ contours appear normal in size. Bones: No suspicious bony lesions. Dextroscoliosis centered at L2. Multilevel disc degeneration throughout the lumbar spine. IMPRESSION: No evidence of bowel obstruction. Dictated by: Deshawn Simms M.D. on 01/01/2018 at 17:04 Approved by: Deshawn Simms M.D. on 01/01/2018 at 17:05 [facility] Narrative Medical decision making narrative: Patient is a 52-year-old male who presents with chief complaint of bleeding he has a hernia. His exam is concerning for hernia. However to soft and reduces easily. He had a normal abdominal x-ray as well as normal CBC, CMP and lipase. I discussed at length follow up with his primary care provider in gave him contact information for one of her surgeons. No questions or concerns upon discharge. I discussed at length high fiber diet and fluids. Discussed return precautions of severe pain, not reducible hernia, fever etc. <Kelly Coyle, DO - Last Filed: 01/04/18 16:04> Lab Data Lab Results 01/01/18 01/01/18 Range/Units 16:25 16:25 WBC 7.4 (4.5-11.0) X10^3/uL RBC 4.38 L (4.5-5.9) X10^6/uL Hgb 13.4 L (13.5-17.5) g/dL Hct 40.2 L (41-53) % MCV 91.8 (80-100) fL MCH 30.6 (26-34) PG MCHC 33.3 (30-36) % RDW 14.4 (11.6-14.8) % Plt Count 226 (150-400) X10^3/uL Neut % (Auto) 50.4 (50-75) % Lymph % (Auto) 31.4 (25-40) % [place] % (Auto) 10.3 (3-14) % Eos % (Auto) 7.4 H (2-4) % Baso % (Auto) 0.5 (0-2) % Neut # (Auto) 3700 (3314-2893) /uL Sodium 143 (137-145) mmol/L Potassium 4.0 (3.4-5.1) mmol/L Chloride 104 (98-107) mmol/L Carbon Dioxide 28 (22-32) mmol/L BUN 17 (9-20) mg/dL Creatinine 1.00 (0.66-1.25) mg/dL Estimated GFR > 60.0 (>60) mL/min BUN/Creatinine Ratio 17.0 (6-22) Glucose 72 (70-100) mg/dL Calcium 9.3 (8.4-10.2) mg/dL Total Bilirubin 0.2 (0.2-1.3) mg/dL AST 39 (17-59) IU/L ALT 33 (21-72) IU/L Alkaline Phosphatase 77 (38-126) U/L Total Protein 7.8 (6.3-8.2) g/dL Albumin 4.4 (3.5-5.0) g/dL Globulin 3.4 (1.7-4.1) g/dL Albumin/Globulin Ratio 1.3 (1.0-2.8) Lipase 76 (23-300) U/L Point of care testing: Urine Dip Bedside Urine Glucose Negative Bedside Urine Bilirubin - Negative Bedside Urine Ketone - Negative Urine Specific [place] 1.025 Bedside Urine Occult Blood - Negative Bedside Urine pH 6.0 Bedside Urine Protein - Negative Bedside Urine Urobilinogen - Negative Bedside Urine Nitrite - Negative Bedside Urine Leukocytes - Negative Esterase Discharge Plan Departure Patient Disposition: Home Clinical Impression: Abdominal pain, Hernia Discharge Date/Time: 01/01/18 17:46 Interventions: ED Discharge Assessment Last Done: 01/01/18 17:45 Instructions: DI for Groin Hernia, DI for Abdominal Pain-Adult Activity Restrictions/Additional Instructions: Please follow-up with your primary care provider regarding your hernia concerns. I have also given you the contact information for one of our surgeons in case you want to follow-up with them. Please drink lots of fluids, and keep high-fiber diet. Please monitor for severe pain, fever nausea vomiting. Please be evaluated if any of these occur. Prescriptions: No Action tramadol 50 mg tablet 50 mg PO Q6H Qty: 60 RF: 0 diazepam [Valium] 5 mg tablet 5 mg PO BID PRN (Reason: Spasms) 30 Days Qty: 60 RF: 1 trazodone 50 mg tablet 50 mg PO .hs Qty: 30 RF: 5 ondansetron [Zofran ODT] 4 mg tablet,disintegrating 4 mg PO Q6H PRN (Reason: nausea and vomiting) Qty: 14 RF: 0 colchicine 0.6 mg Capsule 1.2 mg PO DAILY RF: 0 indomethacin 50 mg capsule 50 mg PO TID PRN (Reason: pain) Qty: 14 RF: 0 Referrals: Brayden Husrt MD [Primary Care Provider] - Khushboo Hammond MD [Physician] - <Kelly Coyle DO - Last Filed: 01/04/18 16:04> Cosign ED Attending Cosignature Attestation: I was immediately available in the department for consultation. This documentation has been reviewed and I agree with assessment and plan. Supervised by Kelly Coyle DO
== END 2018-01-01 17:46 | disposition home or self-care (01) ==
PROVIDERS: Emergency Provider Nurse Practitioner Family; Family Provider Family Medicine; PCP Family Medicine
DX: K46.9 Unspecified abdominal hernia without obstruction or gangrene (principal); R10.9 Unspecified abdominal pain
CPT/HCPCS: 36415; 74018; 80053; 81003; 83690; 85025; 99283; 99284

== ENCOUNTER → 2018-03-02 15:52 | Outpatient (CLI) | payer OTHER, MEDICAID, SELFPAY ==
--- NOTE | 2018-03-02 15:53 | DI.RAD.S_ITS ---
PROCEDURE: XR CHEST 2V INDICATIONS: Cough TECHNIQUE: 2 views of the chest were acquired. COMPARISON: [facility], , CHEST 2 VIEW, 06/06/2015, 18:55. FINDINGS: Surgical changes and devices: None. Lungs and pleura: No pleural effusions or pneumothorax. No acute consolidation. Scattered subsegmental atelectasis and/or scarring. Central airway thickening. Mediastinum: Mediastinal contours are normal. Heart size is normal. Bones and chest wall: No suspicious bony abnormalities. Soft tissues appear unremarkable. IMPRESSION: Central airway thickening suggestive of viral bronchitis or reactive airways disease. No acute consolidation. Dictated by: Deshawn Simms M.D. on 03/02/2018 at 16:12 Approved by: Deshawn Simms M.D. on 03/02/2018 at 16:13
== END ==
PROVIDERS: PCP Student in an Organized Health Care Education/Training Program; Visit Provider Physician Assistant
DX: R05 Cough (principal)
CPT/HCPCS: 71046

== ENCOUNTER → 2018-04-04 16:55 | Outpatient (CLI) | payer OTHER, MEDICAID, SELFPAY | PROVIDERS: Family Provider Family Medicine; PCP Student in an Organized Health Care Education/Training Program; Visit Provider Physician Assistant | DX: L02.91 Cutaneous abscess, unspecified (principal) | CPT/HCPCS: 87070; 87075; 87077; 87147; 87205 ==

== ENCOUNTER → 2019-03-20 10:03 | Outpatient (CLI) | payer OTHER, MEDICAID, SELFPAY | PROVIDERS: Family Provider Family Medicine; PCP Student in an Organized Health Care Education/Training Program; Visit Provider Physician Assistant | DX: L02.91 Cutaneous abscess, unspecified (principal) | CPT/HCPCS: 87070; 87077; 87147; 87186; 87205 ==

== ENCOUNTER → 2019-05-10 13:41 | Outpatient (CLI) | payer OTHER, MEDICAID, SELFPAY ==
[2019-05-10 14:34] LABS: BUN Creatinine Ratio 14.6 (6-22); Blood Urea Nitrogen 14 mg/dL (9-20); Estimated Glomerular Filt Rate > 60.0 mL/min (>60)
[2019-05-10 18:38] LABS: HIV 1 & 2 Ab/Ag 4th Gen Combo NEGATIVE (NEGATIVE)
[2019-05-11 14:45] LABS: HBsAg Screen Negative (Negative); HSV 2 IGG AB < 0.91 index (0.00-0.90); Hepatitis A Antibody IgM Negative (Negative); Hepatitis B Core Antibody IgM Negative (Negative); Hepatitis C Antibody <0.1 s/co ratio (0.0-0.9); RPR Screen Non Reactive (Non Reactive)
== END ==
PROVIDERS: Family Provider Family Medicine; PCP Student in an Organized Health Care Education/Training Program; Referring Provider Student in an Organized Health Care Education/Training Program; Visit Provider Student in an Organized Health Care Education/Training Program
DX: Z72.51 High risk heterosexual behavior (principal); N14.1 Nephropathy induced by other drugs, medicaments and biological substances; T50.8X5A Adverse effect of diagnostic agents, initial encounter
CPT/HCPCS: 36415; 80074; 82565; 84520; 86592; 86695; 86696; 87389

== ENCOUNTER → 2019-05-18 17:43 | Outpatient (CLI) | payer OTHER, MEDICAID, SELFPAY ==
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
== END ==
PROVIDERS: Family Provider Family Medicine; PCP Student in an Organized Health Care Education/Training Program; Referring Provider Student in an Organized Health Care Education/Training Program; Visit Provider Student in an Organized Health Care Education/Training Program
DX: S19.9XXA Unspecified injury of neck, initial encounter (principal); M47.22 Other spondylosis with radiculopathy, cervical region; M50.11 Cervical disc disorder with radiculopathy, high cervical region; M43.12 Spondylolisthesis, cervical region; M48.02 Spinal stenosis, cervical region; Z65.4 Victim of crime and terrorism; Z72.51 High risk heterosexual behavior
CPT/HCPCS: 72141

== ENCOUNTER 2019-05-24 06:35 | Day surgery (SDC) | payer OTHER, MEDICAID, SELFPAY ==
--- NOTE | 2019-05-24 | PATH_ITS ---
[facility] Accession Number: [id number] . 01 Material submitted: . colon - POLYP AT 35 CM . 01 Clinical history: . FLEX SIG W/POSS DILITATION . 02 Diagnosis: Colon, Polyp At 35 CM, Biopsy: Hyperplastic polyp. [facility] 05/25/2019 1223 Local . 02 Electronically signed: . Hawa Dykes MD, Pathologist NPI- [id number] . 01 Gross description: . POLYP AT 35 CM: Received in formalin are 2 fragment(s) of gabriel, soft tissue measuring 0.1 x 0.1 x 0.1 cm to 0.2 x 0.2 x 0.1 cm submitted entirely in 1 cassette(s) /[facility] 05/24/2019 1913 Local . 02 Pathologist provided ICD-10: K63.5 . 02 CPT . 012763 Performed at: 01 [facility] [address], [place], [place] [id number] MD Jose Chambers MD Phone: [phone] Performed at: 02 [facility] [place] [address] [place], [place] [id number] MD Hawa Dykes MD Phone: [phone]
[2019-05-24 07:15] VITALS: BP 104/69; PULSE 67; RESP 15; TEMP 36.3; O2SAT 97; BMI 28.1
[2019-05-24] MEDS: MIDAZOLAM 5 MG/5 ML VIAL IV (07:22)
[2019-05-24] MEDS: fentaNYL 250 MCG/5 ML INJ IV (07:23)
[2019-05-24] MEDS: LACTATED RINGERS 1,000 ML 125 ML IV (07:33)
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
[2019-05-24 09:09] VITALS: BP 107/67; PULSE 64; RESP 14; TEMP 36.6; O2SAT 96
--- NOTE | 2019-05-24 09:13 | PM.PREOP ---
Pre-operative Note Interval Note History & Physical reviewed/Exam performed by Physician: Yes Changes to H&P: No H&P completed within 30 days and has changed as indicated here:: Performed at 8:30 a.m. ASA Class (for procedural sedation): I
[2019-05-24 09:14] VITALS: BP 103/66; PULSE 67; RESP 11; O2SAT 96
[2019-05-24 09:19] VITALS: BP 116/69; PULSE 78; RESP 16; O2SAT 95
[2019-05-24 09:24] VITALS: BP 112/78; PULSE 68; RESP 14; TEMP 36.8; O2SAT 96
[2019-05-24 09:30] VITALS: BP 108/70; PULSE 70; RESP 15; TEMP 36.4; O2SAT 95
== END 2019-05-24 09:45 | disposition home or self-care (01) ==
PROVIDERS: Family Provider Family Medicine; PCP Student in an Organized Health Care Education/Training Program; Referring Provider Specialist; Visit Provider Specialist
PROC: 0DJD8ZZ Inspection of Lower Intestinal Tract, Via Natural or Artificial Opening Endoscopic (ICD-10-PCS; CPT 45378; principal; 2019-05-24 07:45)
DX: K62.5 Hemorrhage of anus and rectum (principal); K57.30 Diverticulosis of large intestine without perforation or abscess without bleeding; K62.89 Other specified diseases of anus and rectum; K63.5 Polyp of colon
CPT/HCPCS: 45331; 99152; J2250; J3010

== ENCOUNTER 2019-08-08 11:11 | Emergency (ER) | payer OTHER, MEDICAID, SELFPAY ==
[2019-08-08 11:17] VITALS: BP 127/75; PULSE 85; RESP 16; TEMP 36.7; O2SAT 99
--- NOTE | 2019-08-08 11:36 | DI.RAD.S_ITS ---
PROCEDURE: XR HIP W PEL IF DONE RT 2V INDICATIONS: lumbar and right hip pain, fell on right buttock yesterday TECHNIQUE: AP pelvis with lateral view(s) of the right hip(s). COMPARISON: [facility], CT, CT ABDOMEN PELVIS W CON, 07/11/2017, 12:31. FINDINGS: Bones: No fractures or dislocations. Bone island in the intertrochanteric right femur is stable compared to prior CT scan. Pelvic ring appears intact. No suspicious bony lesions. Soft tissues: The visualized bowel gas pattern is normal. No suspicious soft tissue calcifications. IMPRESSION: No fracture. No osseous lesion. If symptoms and/or clinical suspicion for pathology persists, further assessment with repeat radiographs (7-10 days) or advanced imaging (e.g. CT, MRI or bone scan) may be helpful. Dictated by: Josephine Hu MD, PhD on 08/08/2019 at 12:26 Approved by: Josephine Hu MD, PhD on 08/08/2019 at 12:27
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
[2019-08-08] MEDS: LIDOCAINE PATCH 1 EACH ADH..PATCH TOP (11:47)
[2019-08-08] MEDS: KETOROLAC 60 MG/2 ML VIAL 30 MG IM (11:47)
[2019-08-08] MEDS: CYCLOBENZAPRINE 10 MG TABLET PO (11:48)
[2019-08-08] MEDS: ACETAMINOPHEN 325 MG TABLET 650 MG PO (11:48)
--- NOTE | 2019-08-08 12:09 | ED_ITS ---
HPI - Back Pain/Injury <MARE Sloan - Last Filed: 08/08/19 13:20> General Chief Complaint: Back Pain/Injury Stated Complaint: THREW OUT BACK Time Seen by Provider: 08/08/19 11:22 Source: patient Mode of arrival: Ambulatory Limitations: no limitations History of Present Illness HPI Narrative: This is a 54-year-old male, former smoker, who presents to ED with chief complain of right-sided low back pain which radiates down the buttock and wraps around the hip and down to mid inner thigh since you last night. Patient states he woke up at 3:00 a.m. in the morning with severe pain and he had taken 2 tabs of Aleve, Valium and Xanax he had to break the severe pain. Patient states he had fell on right side sick bone yesterday prior to pain started when he was sitting on a stool. Patient denies other injuries from this fall or losing consciousness. Patient has history of T12 compression fracture several years ago and since then he has occasional low back pain with sciatica but it has never been this severe. Patient denies urinary symptoms such as urgency, frequency, hematuria. Patient denies bladder or bowel dysfunction or numbness to groin region. Patient reports some discomfort in his testicular region but denies redness or swelling. 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 Patient is able to bear weight and ambulatory with limping gait. Patient denies fever, chills, nausea or vomiting, or abdominal pain. Patient denies history of osteopenia or osteoporosis. Reports pain is 9 to 10/10 and constant and sharp which worsen with movements. Patient states difficulty finding a position to be comfortable. Related Data Home Medications Medication Instructions Recorded Confirmed CBD Cream See Rx Instructions .ROUTE .COMPLEX 10/17/18 05/24/19 Mylanta See Rx Instructions .ROUTE .COMPLEX 10/17/18 05/24/19 unmyvig-mlzgyrvnlyqgl-iskniidq 250 2 tab PO ONCE PRN tab 10/17/18 05/24/19 mg-250 mg-65 mg tablet Previous Rx's Medication Instructions Recorded albuterol sulfate 90 mcg/actuation 2 puff INHALATION Q4-6H PRN #8.5 01/16/19 aerosol inhaler gram mometasone 0.1 % topical cream 1 applictn TOP DAILY PRN #15 gram 02/14/19 mupirocin 2 % topical ointment 1 applic TOP TID #30 gram 03/20/19 diazepam 10 mg tablet 10 mg PO BID #60 tab 06/02/19 cyclobenzaprine 10 mg PO BEDTIME PRN #7 tab 08/08/19 hydrocodone-acetaminophen [Heavener] 1 tab PO Q8H PRN #7 tab 08/08/19 lidocaine 1 patch TOP DAILY #30 each 08/08/19 Allergies Allergy/AdvReac Type Severity Reaction Status Date / Time No Known Drug Allergies Allergy Verified 08/08/19 11:20 Review of Systems <MARE Sloan - Last Filed: 08/08/19 13:20> Review of Systems Narrative: General: Denies fever, chills, fatigue, malaise, sweats. HEENT: Denies sinus pain, ear pain, sore throat, difficulty swallowing, dizziness. Respiratory: Denies dyspnea, cough, wheezing, hemoptysis, sputum. Cardiovascular: Denies chest pain, palpitations, orthopnea, edema. Gastrointestinal: Denies nausea, vomiting, abdominal pain, diarrhea, constipation, melena. : Denies dysuria, frequency, incontinence, hematuria, urinary retention. Musculoskeletal: See HPI Skin: Denies rash, skin lesions, or other. Neurologic: Denies weakness, headache, numbness, change in speech, confusion, seizures, incoordination. Psychiatric: No concerning psychosocial issues. 12-point review of systems is negative except for those stated above. Patient History <MARE Sloan - Last Filed: 08/08/19 13:20> Medical History Abdominal distention (Resolved) Anxiety (Chronic) Athlete's foot (Chronic) BCC (basal cell carcinoma of skin) (Resolved) Bilateral inguinal hernia without obstruction or gangrene (Chronic) Bipolar disorder (Chronic) Difficulty urinating (Resolved) GERD (gastroesophageal reflux disease) (Chronic) Gout (Chronic) Hyperlipidemia (Chronic) MRSA infection (Resolved 04/2017) Surgical History History of bowel resection (Resolved) History of hemorrhoidectomy (Resolved 06/02/17) Family History Father Hyperlipidemia Heart disease Hypertension Mother Diabetes mellitus Hyperlipidemia Heart disease Ovarian cancer Stroke Gout Social History household members: none Smoking Status: Former smoker Tobacco: How many years used: 10 second hand exposure: Yes (sometimes) alcohol intake: former substance use type: does not use Smoking Status: Former smoker alcohol intake frequency: 0-2 drinks per day Substance Use Type: marijuana Exam <MARE Sloan - Last Filed: 08/08/19 13:20> Narrative Exam Narrative: General appearance: well developed, well nourished, in no acute distress. Head: normocephalic, atraumatic, no scalp lesions, non-tender. ENT: Bilateral auditory canals and tympanic membranes clear. Hearing grossly intact. Nose without bleeding, purulent discharge, septal hematoma or deviation. Turbinate without erythema or swelling. Facial sinuses nontender to palpate. Mucous membrane moist, no mucosal lesion. Throat without erythema, tonsillar hypertrophy or exudate. Uvula in midline, airway patent. Neck/Thyroid: neck supple, full range of motion, no visible masses or meningeal signs. No JVD, non-tender without lymphadenopathy. Skin: no suspicious rashes, lesions over visible areas. Warm and dry and appropriate color for ethnicity. Heart: no clubbing, no cyanosis, no edema. S1 and S2 normal. RRR w/o murmurs, clicks, or bruits. Lungs: Breathing even and unlabored. No stridor. No accessory muscles used. Able to speak in full sentences. Chest: normal shape and expansion. Abdomen: non-obese, non-distended. Neurologic: alert and oriented. Cognitive exam, [employer] and PNS grossly intact on informal exam. Psych: good eye contact, normal affect. Initial Vital Signs Initial Vital Signs: Vital Signs Temperature 98.1 F 08/08/19 11:17 Pulse Rate 85 08/08/19 11:17 Respiratory Rate 16 08/08/19 11:17 Blood Pressure 127/75 08/08/19 11:17 Pulse Oximetry 99 08/08/19 11:17 Back/Spine/Pelvis Back: normal to inspection Cervical Spine: cervical ROM normal Thoracic/Lumbar Spine: thoracic and lumbar spine normal to inspection, pain with thoraco-lumbar ROM, paraspinal tenderness (Right low back), No thoraco-lumbar spasm, No thoracic spinal tenderness, lumbar spinal tenderness, straight leg raise positive and tilt present Sacroiliac Joints: tender to palpation and pain elicited by passive hyperextension of lower extremity <Chidi Waddell DO - Last Filed: 08/08/19 13:29> Initial Vital Signs Initial Vital Signs: Vital Signs Temperature 98.1 F 08/08/19 11:17 Pulse Rate 85 08/08/19 11:17 Respiratory Rate 16 08/08/19 11:17 Blood Pressure 127/75 08/08/19 11:17 Pulse Oximetry 99 08/08/19 11:17 Scores <MARE Sloan - Last Filed: 08/08/19 13:20> GCS [place] coma scale eye opening: Spontaneous [place] coma scale verbal response: Orientated [place] coma scale motor response: Obey commands [place] coma scale total score: 15 Course <MARE Sloan - Last Filed: 08/08/19 13:20> Orders Ordered: ED Orders 08/08/19 11:36 XR hip w pel if done RT 2V Stat XR lumbar spine 2-3V Stat 08/08/19 12:25 Urine Microscopic Stat Discontinued Medications Acetaminophen (Tylenol) 650 mg PO NOW ONE Stop: 08/08/19 11:37 Last Admin: 08/08/19 11:48 Dose: 650 mg Documented by: AYUSH Cyclobenzaprine HCl (Flexeril) 10 mg PO NOW ONE Stop: 08/08/19 11:37 Last Admin: 08/08/19 11:48 Dose: 10 mg Documented by: AYUSH Ketorolac Tromethamine (Toradol) 30 mg IM NOW ONE Stop: 08/08/19 11:37 Last Admin: 08/08/19 11:47 Dose: 30 mg Documented by: AYUSH Lidocaine (Lidoderm) 1 each TOP NOW ONE Stop: 08/08/19 11:37 Last Admin: 08/08/19 11:47 Dose: 1 each Documented by: AYUSH Vital Signs Vital signs: Vital Signs - 8 hr 08/08/19 11:17 08/08/19 13:08 Temperature 98.1 F Pulse Rate 85 78 Respiratory Rate 16 18 Blood Pressure 127/75 Blood Pressure [Left Arm] 127/75 Pulse Oximetry 99 99 <Chidi Waddell DO - Last Filed: 08/08/19 13:29> Orders Ordered: ED Orders 08/08/19 11:36 XR hip w pel if done RT 2V Stat XR lumbar spine 2-3V Stat 08/08/19 12:25 Urine Microscopic Stat Discontinued Medications Acetaminophen (Tylenol) 650 mg PO NOW ONE Stop: 08/08/19 11:37 Last Admin: 08/08/19 11:48 Dose: 650 mg Documented by: AYUSH Cyclobenzaprine HCl (Flexeril) 10 mg PO NOW ONE Stop: 08/08/19 11:37 Last Admin: 08/08/19 11:48 Dose: 10 mg Documented by: AYUSH Ketorolac Tromethamine (Toradol) 30 mg IM NOW ONE Stop: 08/08/19 11:37 Last Admin: 08/08/19 11:47 Dose: 30 mg Documented by: AYUSH Lidocaine (Lidoderm) 1 each TOP NOW ONE Stop: 08/08/19 11:37 Last Admin: 08/08/19 11:47 Dose: 1 each Documented by: AYUSH Vital Signs Vital signs: Vital Signs - 8 hr 08/08/19 11:17 08/08/19 13:08 Temperature 98.1 F Pulse Rate 85 78 Respiratory Rate 16 18 Blood Pressure 127/75 Blood Pressure [Left Arm] 127/75 Pulse Oximetry 99 99 MDM - Back Pain/Injury <MARE Sloan - Last Filed: 08/08/19 13:20> Differential Diagnosis Differential diagnosis: Likely lumbar radiculopathy, sciatica and strain of lumbar region Medical Records Attestation: I reviewed the patient's medical records. Lab Data Attestation: I reviewed the patient's lab results. Labs: Lab Results 08/08/19 Range/Units 12:25 Urine RBC 0-1/hpf (0-5/HPF) Urine WBC 0-1/hpf (0-5/HPF) Urine Bacteria None seen (None) Ur Culture Indicated? Cult not indicated Urine Dip Bedside Urine Glucose Negative Bedside Urine Bilirubin + 1 Bedside Urine Ketone +/- 5 Urine Specific [place] 1.025 Bedside Urine Occult Blood - Negative Bedside Urine pH 6 Bedside Urine Protein +/- 15 Bedside Urine Urobilinogen +/- 1mg Bedside Urine Nitrite - Negative Bedside Urine Leukocytes +/- 15 Esterase Imaging Data XR-Lumbar: Radiologist's Impression: [address] [address] XRay Report Signed Patient: Carson Kumar JMR#: [id number] : 1965Acct:[id number] Age/Sex: 54 / MDate of Service: 08/08/19 Loc: ED Accession Number: [id number] Procedure: XR lumbar spine 2-3V Ordering Provider: Catracho Amaro PROCEDURE: XR LUMBAR SPINE 2-3V INDICATIONS: lumbar and right hip pain, fell on right buttock yesterday TECHNIQUE: 3 views of the lumbar spine were acquired. COMPARISON: None. FINDINGS: Bones: 5 qyt-luc-oegpsgm vertebrae are present. There is mild convex right curvature of the upper lumbar spine. There is normal bony alignment. No vertebral body compression fractures. No suspicious bony lesions. Moderate L1-L2, L2-L3 and L3-L4 degenerative changes. [place]we-[place]-csomsaya L4-L5 degenerative changes. Mild L3-L4, L4-L5 and L5- S1 facet arthropathy. Soft tissues: Overlying bowel gas pattern is normal. No suspicious soft tissue calcifications. IMPRESSION: 1. Multilevel degenerative disease. 2. Multilevel facet arthropathy. 3. No fracture. No acute osseous lesion. If symptoms and/or clinical suspicion for pathology persists, evaluation with MRI may be helpful for further assessment. Dictated by: Josephine Hu MD, PhD on 08/08/2019 at 12:27 Approved by: Josephine Hu MD, PhD on 08/08/2019 at 12:29 XR-Hip/Pelvis LT: Radiologist's Impression: [address] [address] XRay Report Signed Patient: Carson Kumar JMR#: [id number] : 1965Acct:[id number] Age/Sex: 54 / MDate of Service: 08/08/19 Loc: ED Accession Number: [id number] Procedure: XR hip w pel if done RT 2V Ordering Provider: Catracho Amaro PROCEDURE: XR HIP W PEL IF DONE RT 2V INDICATIONS: lumbar and right hip pain, fell on right buttock yesterday TECHNIQUE: AP pelvis with lateral view(s) of the right hip(s). COMPARISON: [facility], CT, CT ABDOMEN PELVIS W CON, 07/11/2017, 12:31. FINDINGS: Bones: No fractures or dislocations. Bone island in the intertrochanteric right femur is stable compared to prior CT scan. Pelvic ring appears intact. No suspicious bony lesions. Soft tissues: The visualized bowel gas pattern is normal. No suspicious soft tissue calcifications. IMPRESSION: No fracture. No osseous lesion. If symptoms and/or clinical suspicion for pathology persists, further assessment with repeat radiographs (7-10 days) or advanced imaging (e.g. CT, MRI or bone scan) may be helpful. Dictated by: Josephine Hu MD, PhD on 08/08/2019 at 12:26 Approved by: Josephine Hu MD, PhD on 08/08/2019 at 12:27 [facility] Narrative Medical decision making narrative: This is 54-year-old male who presents to ED with right-sided low back pain radiating to anterior and medial mid thigh since yesterday. Patient reports he had fell and landed on right buttock yesterday prior onset of pain. Denies saddle anesthesia or incontinence for stool or bladder. Patient reports pain worsens with movement. No urinary symptoms or abdominal pain. Urine test does not indicate infection and no blood appreciated. Patient was medicated with IM Toradol, Lidocaine patch,and Flexeril while in ED which improved patient's pain. X-ray test on lumbar and hip/pelvis does not show fractures but DJD in multilevel. Patient discharged to home with small dose of Flexeril, Heavener, lidocaine patch and advised to use ryii-tql-cjklgib Tylenol and or Motrin as needed as a 1st line treatment. Narcotic, muscle relaxant medication precautions were discussed along NSAIDS GI precaution. Return precautions were discussed with patient and patient verbalized understanding and agreement with treatment plan. <Chidi Waddell, DO - Last Filed: 08/08/19 13:29> Lab Data Labs: Lab Results 08/08/19 Range/Units 12:25 Urine RBC 0-1/hpf (0-5/HPF) Urine WBC 0-1/hpf (0-5/HPF) Urine Bacteria None seen (None) Ur Culture Indicated? Cult not indicated Urine Dip Bedside Urine Glucose Negative Bedside Urine Bilirubin + 1 Bedside Urine Ketone +/- 5 Urine Specific [place] 1.025 Bedside Urine Occult Blood - Negative Bedside Urine pH 6 Bedside Urine Protein +/- 15 Bedside Urine Urobilinogen +/- 1mg Bedside Urine Nitrite - Negative Bedside Urine Leukocytes +/- 15 Esterase Discharge Plan Departure Patient Disposition: Home Clinical Impression: Low back pain Qualifiers: Chronicity: unspecified Back pain laterality: right Sciatica presence: unspecified whether sciatica present Qualified Code(s): M54.5 - Low back pain Discharge Date/Time: 08/08/19 13:21 Instructions: DI for Low Back Pain Activity Restrictions/Additional Instructions: You have been diagnosed with [low back pain. X-ray test on hip/pelvis and lumbar region does not indicate fracture but shows multilevel degenerative disease with facet arthropathy. You were treated with Flexeril, IM Toradol and Lidocaine patch in ED with some relief]. What to do: *Take your medications as directed. Please take uxxg-tua-ddjivyd Tylenol and or Motrin as needed for discomfort as 1st baseline. Tylenol 650-1000 mg as needed up to 3 to 4 times a day. Max dose for Tylenol in 24 hour is 4000 mg for an adult. Ibuprofen/Motrin 400-600 mg up to 3 times a day as needed for pain with food. Lidocaine patch on affected site stays on for 12 hours and off for 12 hours and use it as needed for pain. Flexeril for muscle relaxation and night. Heavener for severe pain as this is narcotic pain medications. Flexeril and Heavener can cause drowsiness so please take precautions. Do not drive, drink alcohol or operate heavy equipments. Also a can cause constipation so please take precautions. Last 3 medication has been transmitted to [facility] in [place]. *Follow up with your primary care provider in 2-3 days, call for an appointment. Let them know you were seen in the ED and that we asked you to be seen in follow up. *Return to ED if you have any new, worsening, or concerning symptoms, such as [fever, worsening pain, weakness/tingling/numbness to extremities, numbness to groin region, incontinence for bladder or stools, chest pain, breathing difficulty, unable to tolerate fluids or any acute concerns]. Prescriptions: New cyclobenzaprine 10 mg tablet 10 mg PO BEDTIME PRN (Reason: muscle spasm) Qty: 7 RF: 0 hydrocodone-acetaminophen [Heavener] 5-325 mg tablet 1 tab PO Q8H PRN (Reason: pain) Qty: 7 RF: 0 lidocaine 5 % adhesive patch,medicated 1 patch TOP DAILY Qty: 30 RF: 0 No Action albuterol sulfate 90 mcg/actuation HFA aerosol inhaler 2 puff INHALATION Q4-6H PRN (Reason: bronchospasm) Qty: 8.5 RF: 0 mupirocin 2 % ointment 1 applic TOP TID Qty: 30 RF: 0 mometasone 0.1 % cream 1 applictn TOP DAILY PRN (Reason: rash) Qty: 15 RF: 1 diazepam 10 mg tablet 10 mg PO BID Qty: 60 RF: 2 CBD Cream See Rx Instructions .ROUTE .COMPLEX RF: 0 Mylanta See Rx Instructions .ROUTE .COMPLEX RF: 0 Excedrin Migraine 250-250-65 mg tablet 2 tab PO ONCE PRN (Reason: headaches) RF: 0 Referrals: Neil Catalan MD [Primary Care Provider] - <Chidi Waddell, - Last Filed: 08/08/19 13:29> [facility]: Dr Waddell Co-Sign Statement: I was available for consultation during this patient's emergency department visit. This chart is signed by myself for administrative purposes only. I did not have direct contact with this patient during this visit. They were seen independently by the APC.
[2019-08-08 12:39] LABS: Bacteria Urine None Seen
--- NOTE | 2019-08-08 12:39 | PC.NURSE ---
Pt requests lidocaine patch be relocated higher on back. RN complies.
[2019-08-08 12:44] LABS: Culture Indicated Urine Cult Not Indicated; RBC Urine 0-1/HPF (0-5/HPF); WBC Urine 0-1/HPF (0-5/HPF)
[2019-08-08 13:08] VITALS: BP 127/75; PULSE 78; RESP 18; O2SAT 99
== END 2019-08-08 13:21 | disposition home or self-care (01) ==
PROVIDERS: Emergency Provider Nurse Practitioner Family; Family Provider Family Medicine; PCP Student in an Organized Health Care Education/Training Program
DX: M54.5 Low back pain (principal)
CPT/HCPCS: 72100; 73502; 81003; 81015; 96372; 99283; 99284; J1885

== ENCOUNTER → 2019-08-24 09:21 | Outpatient (CLI) | payer OTHER, MEDICAID, SELFPAY ==
--- NOTE | 2019-08-24 09:22 | DI.MRI.S_ITS ---
PROCEDURE: MR LUMBAR SPINE WO CON INDICATIONS: Lumbar spine injury; parasthesia in leg TECHNIQUE: Noncontrast sagittal T1 spin echo and T2 fast echo, sagittal STIR, axial T1 and T2 fast spin echo through the lumbar spine. In cases with scoliosis, additional coronal T2 fast spin echo may be performed. COMPARISON: [facility], MR, L-SPINE WITHOUT CONTRAST, 01/22/2014, 15:02. [facility], CR, XR LUMBAR SPINE 2-3V, 08/08/2019, 11:02. FINDINGS: Image quality: Excellent. Alignment and Curvature: There is scoliosis. Minimal right retrolisthesis of L1 on L2, L2 and L3 and L3 on L4. Bone Marrow: Degenerative endplate signal changes are present throughout the lumbar spine. No acute vertebral body compression fractures. Spinal Cord: Conus medullaris terminates at the T12-L1 level. Visualized cord demonstrates normal signal and size. Paraspinous Soft Tissues: No paravertebral masses. T12-L1: Mild loss of disc height. Moderate disc desiccation. There is diffuse disc bulge and posterior central disc protrusion. The central canal is mildly narrowed. No significant foraminal stenosis. L1-L2: Severe loss of disc height. Moderate disc desiccation. There is diffuse disc bulge and posterior disc osteophyte complex. Mild bilateral facet arthropathy. The central canal is mildly narrowed. Mild bilateral foraminal stenosis. L2-L3: Severe loss of disc height. Moderate disc desiccation. There is diffuse posterior disc bulge. There is posterior and lateral disc protrusion. Mild bilateral facet arthropathy. The central canal is xfuubfck-fa-wwmchgsa narrowed. Severe left and right right foraminal stenosis, increased compared to the last exam. L3-L4: Moderate to severe loss of disc height. Moderate disc desiccation. There is diffuse posterior disc bulge and disc osteophyte complex. Mild bilateral facet arthropathy and hypertrophy of ligamentum flavum. The central canal is txklkonz-ge-vieraqzb narrowed. Severe bilateral foraminal stenosis increased compared to the last exam. L4-L5: Moderate to severe loss of disc height. Moderate disc desiccation. There is diffuse posterior disc bulge and disc osteophyte complex. Mild bilateral facet arthropathy and hypertrophy of ligamentum flavum. The central canal is xgnbiqvq-fq-btlvgibe narrowed. Severe right and moderate left foraminal stenosis, increased compared to the last exam. L5-S1: Mild loss of disc height and disc desiccation. There is diffuse posterior disc bulge. Mild bilateral facet arthropathy. The central canal is patent. Mild bilateral foraminal stenosis. IMPRESSION: 1. Multilevel degenerative disc disease and facet arthropathy as described. 2. Hydrdevn-yz-yegled central canal stenosis at L2-L3, L3-L4 and L4-L5. 3. Multilevel foraminal stenosis, severe at L2-L3 on the left, L3-L4 bilaterally at L4-L5 on the right. Dictated by: Miguel Davis M.D. on 08/24/2019 at 12:11 Approved by: Miguel Davis M.D. on 08/24/2019 at 12:50
== END ==
PROVIDERS: Family Provider Family Medicine; PCP Student in an Organized Health Care Education/Training Program; Referring Provider Student in an Organized Health Care Education/Training Program; Visit Provider Student in an Organized Health Care Education/Training Program
DX: S34.109A Unspecified injury to unspecified level of lumbar spinal cord, initial encounter (principal); M51.36 Other intervertebral disc degeneration, lumbar region; M48.061 Spinal stenosis, lumbar region without neurogenic claudication; M47.816 Spondylosis without myelopathy or radiculopathy, lumbar region; M47.817 Spondylosis without myelopathy or radiculopathy, lumbosacral region; M54.5 Low back pain; R33.9 Retention of urine, unspecified; R20.2 Paresthesia of skin
CPT/HCPCS: 72148

== ENCOUNTER 2019-10-02 10:21 | Emergency (ER) | payer OTHER, MEDICAID, SELFPAY ==
[2019-10-02] VITALS (11 sets, daily range): BP systolic 119–184; BP diastolic 80–97; PULSE 61–74; RESP 14–22; TEMP 36.7; O2SAT 81–100
--- NOTE | 2019-10-02 10:31 | DI.MRI.S_ITS ---
PROCEDURE: MR LUMBAR SPINE WO/W CON INDICATIONS: Lumbar spine pain sp trauma w/ urinary retention TECHNIQUE: Noncontrast sagittal T1 spin echo and T2 fast spin echo, sagittal STIR, axial T1 and T2 fast spin echo through the lumbar spine. In cases with scoliosis, additional coronal T2 fast spin echo may be performed. After the administration of contrast, sagittal and axial T1 spin echo with fat saturation through the lumbar spine. COMPARISON: [facility], CR, XR LUMBAR SPINE 2-3V, 08/08/2019, 11:02. [facility], MR, MR LUMBAR SPINE WO CON, 08/24/2019, 9:36. FINDINGS: Image quality: Excellent. Alignment and curvature: There is trace L1-L2, L2-L3, L3-L4 and L4-L5 retrolisthesis. There is approximately 12? of convex right thoracolumbar spine scoliosis. Marrow: Reactive endplate changes noted adjacent to the L1-L2, L2-L3, L3-L4, L4-L5 and L5-S1 discs. No acute vertebral body compression fractures. No suspicious marrow enhancement. Spinal cord: Conus medullaris terminates at the T12-L1 disc level. Visualized spinal cord demonstrates normal signal, without suspicious enhancement. Paraspinous soft tissues: No paravertebral masses or abnormal enhancement. L1-L2: Loss of disc signal and height. Mild, diffuse disc bulge. Mild bilateral facet hypertrophy. Mild to moderate narrowing central canal. Mild bilateral neural foraminal narrowing. Fissure noted in the posterior annulus. L2-L3: Loss of disc signal and height. Moderate, diffuse disc bulge. Mild bilateral facet hypertrophy. Moderate to severe narrowing of the central canal with crowding of the nerve roots of the cauda equina. Mild right and moderate left neural foraminal narrowing. L3-L4: Loss of disc signal and height. Moderate, diffuse disc bulge. Fbln-mg-wcytswgz facet and mild ligamentum flavum hypertrophy. Moderate to severe narrowing of the central canal with crowding of the nerve roots of the cauda equina. Severe bilateral neural foraminal narrowing with slight compression of the exiting L3 nerve roots. L4-L5: Loss of disc signal and height. Moderate, diffuse disc bulge. Mild bilateral facet and ligamentum flavum hypertrophy. Moderate to severe narrowing of the central canal with crowding of the nerve roots of the cauda equina. Right central disc extrusion. Extruded disc material extends inferiorly into the L5 lateral recess and impinges upon the right L5 nerve root. Severe right and moderate to severe left neural foraminal narrowing with compression of the exiting right L4 nerve root. L5-S1: Loss of disc signal . Mild bilateral facet hypertrophy. No central stenosis. Mild bilateral neural foraminal narrowing. No neural compression. IMPRESSION: 1. Multilevel degenerative disease. 2. Multilevel facet arthropathy. 3. Moderate to severe L2-L3, L3-L4 and L4-L5 central canal narrowing with crowding of the nerve roots of the cauda equina. 4. Severe bilateral L3-L4 neural foraminal narrowing with compression of the exiting bilateral L3 nerve roots. Severe right L4-L5 neural foraminal narrowing with compression of the exiting right L4 nerve root. 5. Right central L4-L5 disc extrusion which impinges upon and compresses the right L5 nerve root. 6. No suspicious postcontrast enhancement. Dictated by: Josephine Hu MD, PhD on 10/02/2019 at 13:50 Approved by: Josephine Hu MD, PhD on 10/02/2019 at 14:02
[2019-10-02 10:43] LABS: Add Manual Diff / Slide Review NO; Basophils Absolute Auto 0 /uL (0-100); Basophils Percent Auto 0.6 % (0-2); Eosinophils Absolute Auto 600 /uL (0-450); Hematocrit 40.1 % (41-53); Hemoglobin 13.4 g/dL (13.5-17.5); Lymphocytes Absolute Auto 1900 /uL (1100-4500); Lymphocytes Percent Auto 33.3 % (25-40); Mean Corpuscular HGB Conc 33.4 % (30-36); Mean Corpuscular Hemoglobin 30.6 PG (26-34); Mean Corpuscular Volume 91.5 fL (80-100); Monocytes Absolute Auto 500 /uL (0-900); Monocytes Percent Auto 9.4 % (3-14); Neutrophils Absolute Auto 2700 /uL (1500-7000); Neutrophils Percent Auto 46.7 % (50-75); Platelet Count 243 X10^3/uL (150-400); Red Blood Cell Count 4.38 X10^6/uL (4.5-5.9); White Blood Cell Count 5.8 X10^3/uL (4.5-11.0)
[2019-10-02 10:53] LABS: Alanine Aminotransferase 23 IU/L (<50); Albumin 4.4 g/dL (3.5-5.0); Albumin Globulin Ratio 1.3 (1.0-2.8); Alkaline Phosphatase 109 U/L (38-126); Aspartate Aminotransferase 33 IU/L (17-59); BUN Creatinine Ratio 20.2 (6-22); Bilirubin Total 0.5 mg/dL (0.2-1.3); Blood Urea Nitrogen 17 mg/dL (9-20); C-Reactive Protein Quant 0.6 mg/dL (<1.0); Calcium 9.4 mg/dL (8.4-10.2); Carbon Dioxide 23 mmol/L (22-32); Chloride 107 mmol/L (98-107); Estimated Glomerular Filt Rate > 60.0 mL/min (>60); Globulin 3.5 g/dL (1.7-4.1); Glucose 105 mg/dL (70-100); HEMOLYSIS < 15 (0-50); Potassium 4.8 mmol/L (3.4-5.1); Sodium 137 mmol/L (137-145); Total Protein 7.9 g/dL (6.3-8.2)
[2019-10-02 11:00] LABS: Erythrocyte Sedimentation Rate 14 MM/HR (0-15)
[2019-10-02] MEDS: MORPHINE 4 MG/ML INJ IV ×2 (11:46→15:27)
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
== END 2019-10-02 15:43 | disposition home or self-care (01) ==
PROVIDERS: Emergency Medicine; Emergency Provider Nurse Practitioner Family; Family Provider Family Medicine; PCP Student in an Organized Health Care Education/Training Program; Referring Provider Student in an Organized Health Care Education/Training Program
DX: M54.16 Radiculopathy, lumbar region (principal); R33.9 Retention of urine, unspecified
CPT/HCPCS: 36415; 51798; 72158; 80053; 85025; 85651; 86140; 96374; 96376; 99284; A9579; J2270

== ENCOUNTER 2019-10-29 17:21 | Observation (INO) | payer OTHER, MEDICAID, SELFPAY ==
[2019-10-29] VITALS (9 sets, daily range): BP systolic 109–145; BP diastolic 69–96; PULSE 72–102; RESP 14–20; TEMP 36.7–37.2; O2SAT 94–97; BMI 27.3
[2019-10-29] MEDS: PROCHLORPERAZINE 10 MG/2 ML VIAL IV (18:11)
[2019-10-29] MEDS: PANTOPRAZOLE 40 MG VIAL IV ×2 (18:11→18:28)
[2019-10-29] MEDS: SODIUM CHLORIDE 0.9% 1,000 ML 1000 ML IV (18:12)
--- NOTE | 2019-10-29 18:18 | ED_ITS ---
HPI - General Adult General Chief complaint: Abdominal Pain Stated complaint: thinks he has an ulcer Time Seen by Provider: 10/29/19 17:35 Source: patient Mode of arrival: Ambulatory Limitations: no limitations History of Present Illness HPI narrative: Patient is a 54-year-old male here for evaluation of multiple ep isodes of vomiting, black colored vomit, diarrhea, bloody stool, abdominal pain. Patient states that for the past couple days he has had generalized abdominal pain however the vomiting and the diarrhea and they blood in his stool has just been over the past several hours. No fevers. Patient does state that he drinks alcohol couple times a week. Does not take anti-inflammatories. Does not on b lood thinners. Is currently taking antibiotics for a cellulitis in his right lower extremity. This is prescribed by his primary provider. Patient has never had an ulcer in the past. Never had a GI bleed in the past. Has had bilateral inguinal hernia repairs in the past. Has had bowel resection in the past secondary to diverticulitis. Patient has not tried anything for symptoms prior to her Related Data Home Medications Medication Instructions Recorded Confirmed CBD Cream See Rx Instructions .ROUTE .COMPLEX 10/17/18 10/17/19 finasteride 5 mg tablet 5 mg PO DAILY 10/17/19 10/17/19 Previous Rx's Medication Instructions Recorded mometasone 0.1 % topical cream 1 applictn TOP DAILY PRN #15 gram 02/14/19 lidocaine 1 patch TOP DAILY #30 each 08/08/19 diazepam 10 mg tablet 10 mg PO BID #60 tab 08/16/19 tamsulosin 0.4 mg capsule 0.4 mg PO BEDTIME #90 cap 09/08/19 hydrocodone 10 mg-acetaminophen 1 tab PO Q8H PRN #90 tab 09/26/19 325 mg tablet cephalexin 500 mg capsule 500 mg PO QID #28 cap 10/24/19 sulfamethoxazole 800 1 tab PO BID #6 tab 10/24/19 mg-trimethoprim 160 mg tablet Allergies Allergy/AdvReac Type Severity Reaction Status Date / Time No Known Drug Allergies Allergy Verified 10/29/19 17:42 Review of Systems Constitutional Constitutional: Denies fever(s) and Denies headache(s) ENT Ears, Nose, Mouth, and Throat: Denies headache(s) Cardiovascular Cardiovascular: Denies chest pain and Denies dyspnea Respiratory Respiratory: Denies dyspnea Gastrointestinal Gastrointestinal: Reports abdominal pain, Reports hematochezia, Reports coffee ground emesis, Reports cramping, Reports diarrhea, Reports nausea and Reports vomiting Genitourinary Genitourinary: Denies dysuria Genitourinary: Denies dysuria Musculoskeletal Musculoskeletal: Denies arthralgias and Denies myalgias Integumentary/Breasts Comments: Infection right lower extremity Neurologic Neurologic: Denies behavioral changes, Denies confusion and Denies headache(s) Psychiatric Psychiatric: Denies behavioral changes and Denies confusion Hematologic/Lymphatic Hematologic/Lymphatic: Denies easy bleeding and Denies easy bruising Allergic/Immunologic Allergic/Immunologic: Denies urticaria Patient History Medical History Abdominal distention (Resolved) Anxiety (Chronic) Athlete's foot (Chronic) BCC (basal cell carcinoma of skin) (Resolved) Bilateral inguinal hernia without obstruction or gangrene (Chronic) Bipolar disorder (Chronic) Difficulty urinating (Resolved) GERD (gastroesophageal reflux disease) (Chronic) Gout (Chronic) Hyperlipidemia (Chronic) MRSA infection (Resolved 04/2017) Surgical History History of bowel resection (Resolved) History of hemorrhoidectomy (Resolved 06/02/17) Family History Father Hyperlipidemia Heart disease Hypertension Mother Diabetes mellitus Hyperlipidemia Heart disease Ovarian cancer Stroke Gout Social History household members: none Smoking Status: Former smoker Tobacco: How many years used: 10 second hand exposure: Yes (sometimes) alcohol intake: former substance use type: does not use Smoking Status: Former smoker alcohol intake frequency: 0-2 drinks per day Substance Use Type: marijuana Exam Initial Vital Signs Initial Vital Signs: Vital Signs Temperature 99.0 F 10/29/19 17:39 Pulse Rate 99 H 10/29/19 17:39 Respiratory Rate 18 10/29/19 17:39 Blood Pressure 137/96 H 10/29/19 17:39 Pulse Oximetry 96 10/29/19 17:39 Const General: cooperative, diaphoretic and ill appearing Limitations: mental status not altered HENPR Head: normal to inspection and normocephalic Resp Effort & Inspection: normal respiratory effort Auscultation: clear to auscultation bilaterally Cardio Rate: regular rate Rhythm: regular rhythm GI Inspection: non-distended Palpation: soft, No firm, guarding and tender (Right upper quadrant epigastric) Skin Other: Patient with a 5 cm x 5 cm area some that is his right lower extremity consistent with a stated history. He states this is improving Neuro General: patient alert, patient awake and patient oriented x3 Cognition: normal cognition Speech: speech normal Extrem General: normal to inspection and capillary refill normal Psych Appearance: grossly normal and well kempt Scores GCS Baxter coma scale eye opening: Spontaneous Adria coma scale verbal response: Orientated Baxter coma scale motor response: Obey commands Adria coma scale total score: 15 Course Orders Ordered: ED Orders 10/29/19 18:00 Complete Blood Count AUTO DIFF Stat Comprehensive Metabolic Panel Stat Lactate (Lactic Acid) Stat Lipase Stat Partial Thromboplastin Time Stat Prothrombin Time INR Stat 10/29/19 18:19 CT abdomen pelvis w con Stat 10/29/19 18:22 EKG-12 Lead Stat 10/29/19 21:01 Consult to General Surgery Stat Consult to Internal Medicine Stat 10/29/19 21:05 Type and Screen Stat Hydrocodone Bitart/Acetaminophen (Morris 10/325) 1 tab PO Q8H PRN PRN Reason: pain Pantoprazole Sodium 80 mg/ (Sodium Chloride) 100 mls @ 10 mls/hr IV CONT ERNESTINE Last Admin: 10/29/19 18:52 Dose: 8 mg/hr, 10 mls/hr Documented by: TAYLOR Dextrose/Sodium Chloride (Dextrose 5%-0.9% Ns) 1,000 mls @ 100 mls/hr IV CONT ERNESTINE Naloxone HCl (Narcan) 0.2 mg IV Q2MIN PRN PRN Reason: Opiate Reversal Tamsulosin HCl (Flomax) 0.4 mg PO BEDTIME ERNESTINE Discontinued Medications Sodium Chloride (Normal Saline 0.9%) 1,000 mls @ 1,000 mls/hr IV BOLUS ONE Stop: 10/29/19 19:02 Last Infusion: 10/29/19 20:29 Dose: 0 mls/hr Documented by: Admin: 10/29/19 18:12 Dose: 1,000 mls/hr Documented by: TAYLOR Pantoprazole Sodium (Protonix) 40 mg IV NOW ONE Stop: 10/29/19 18:07 Last Admin: 10/29/19 18:11 Dose: 40 mg Documented by: TAYLOR Pantoprazole Sodium (Protonix) 40 mg IV NOW ONE Stop: 10/29/19 18:18 Last Admin: 10/29/19 18:28 Dose: 40 mg Documented by: TAYLOR Prochlorperazine (Compazine) 10 mg IV NOW ONE Stop: 10/29/19 18:07 Last Admin: 10/29/19 18:11 Dose: 10 mg Documented by: TAYLOR Vital Signs Vital signs: Vital Signs - 8 hr 10/29/19 17:39 10/29/19 18:11 10/29/19 18:30 Temperature 99.0 F Pulse Rate 99 H 102 H 89 Respiratory Rate 18 14 Blood Pressure 137/96 H 132/83 142/81 H Pulse Oximetry 96 96 10/29/19 19:00 10/29/19 19:30 10/29/19 20:00 Temperature Pulse Rate 91 H 100 H 94 H Respiratory Rate 19 20 17 Blood Pressure 127/84 109/76 109/76 Pulse Oximetry 95 94 97 Medical Decision Making Medical Records Medical records reviewed: Yes I reviewed the patient's medical records. Lab Data Lab results reviewed: Yes I reviewed the patient's lab results. Result diagrams: 10/29/19 18:00 10/29/19 18:00 Labs: Lab Results 10/29/19 10/29/19 10/29/19 Range/Units 18:00 18:00 18:00 WBC 11.1 H (4.5-11.0) X10^3/uL RBC 4.63 (4.5-5.9) X10^6/uL Hgb 14.2 (13.5-17.5) g/dL Hct 42.1 (41-53) % MCV 91.0 (80-100) fL MCH 30.6 (26-34) PG MCHC 33.6 (30-36) % RDW 14.0 (11.6-14.8) % Plt Count 330 (150-400) X10^3/uL Neut % (Auto) 82.3 H (50-75) % Lymph % (Auto) 11.3 L (25-40) % [place] % (Auto) 5.6 (3-14) % Eos % (Auto) 0.4 L (2-4) % Baso % (Auto) 0.4 (0-2) % Neut # (Auto) 9100 H (3868-6576) /uL Lymph # (Auto) 1300 (7504-6464) /uL [place] # (Auto) 600 (0-900) /uL Eos # (Auto) 0 (0-450) /uL Baso # (Auto) 0 (0-100) /uL PT 11.9 (10.1-12.7) SECONDS INR 1.0 (0.9-1.3) APTT 36 (26.4-36.2) SECONDS Sodium 135 L (137-145) mmol/L Potassium 3.8 (3.4-5.1) mmol/L Chloride 102 (98-107) mmol/L Carbon Dioxide 23 (22-32) mmol/L BUN 12 (9-20) mg/dL Creatinine 0.97 (0.66-1.25) mg/dL Estimated GFR > 60.0 (>60) mL/min BUN/Creatinine Ratio 12.4 (6-22) Glucose 112 H (70-100) mg/dL Lactate (0.7-2.1) mmol/L Calcium 9.8 (8.4-10.2) mg/dL Total Bilirubin 0.6 (0.2-1.3) mg/dL AST 33 (17-59) IU/L ALT 23 (<50) IU/L Alkaline Phosphatase 92 (38-126) U/L Total Protein 8.8 H (6.3-8.2) g/dL Albumin 4.7 (3.5-5.0) g/dL Globulin 4.1 (1.7-4.1) g/dL Albumin/Globulin Ratio 1.1 (1.0-2.8) Lipase 69 (23-300) U/L 10/29/19 Range/Units 18:00 WBC (4.5-11.0) X10^3/uL RBC (4.5-5.9) X10^6/uL Hgb (13.5-17.5) g/dL Hct (41-53) % MCV (80-100) fL MCH (26-34) PG MCHC (30-36) % RDW (11.6-14.8) % Plt Count (150-400) X10^3/uL Neut % (Auto) (50-75) % Lymph % (Auto) (25-40) % [place] % (Auto) (3-14) % Eos % (Auto) (2-4) % Baso % (Auto) (0-2) % Neut # (Auto) (7532-2475) /uL Lymph # (Auto) (5868-3748) /uL [place] # (Auto) (0-900) /uL Eos # (Auto) (0-450) /uL Baso # (Auto) (0-100) /uL PT (10.1-12.7) SECONDS INR (0.9-1.3) APTT (26.4-36.2) SECONDS Sodium (137-145) mmol/L Potassium (3.4-5.1) mmol/L Chloride (98-107) mmol/L Carbon Dioxide (22-32) mmol/L BUN (9-20) mg/dL Creatinine (0.66-1.25) mg/dL Estimated GFR (>60) mL/min BUN/Creatinine Ratio (6-22) Glucose (70-100) mg/dL Lactate 1.0 (0.7-2.1) mmol/L Calcium (8.4-10.2) mg/dL Total Bilirubin (0.2-1.3) mg/dL AST (17-59) IU/L ALT (<50) IU/L Alkaline Phosphatase (38-126) U/L Total Protein (6.3-8.2) g/dL Albumin (3.5-5.0) g/dL Globulin (1.7-4.1) g/dL Albumin/Globulin Ratio (1.0-2.8) Lipase (23-300) U/L Imaging Data CT scan - abdomen/pelvis: Radiologist's Impression: [address] [address] [address] Scan Report Signed Patient: Carson Kumar JMR#: [id number] : 1965Acct:[id number] Age/Sex: 54 / MDate of Service: 10/29/19 Loc: ED Accession Number: [id number] Procedure: CT abdomen pelvis w con Ordering Provider: Chidi Waddell D.O. PROCEDURE: CT ABDOMEN PELVIS W CON INDICATIONS: vomiting blood and rectal bleeding TECHNIQUE: After the administration of intravenous contrast, 5 mm thick sections acquired from the diaphragm to the symphysis. 5 mm coronal and sagittal reformats were acquired. For radiation dose reduction, the following was used: automated exposure control, adjustment of mA and/or kV according to patient size. COMPARISON: [facility], CT, CT ABDOMEN PELVIS W CON, 07/11/2017, 12:31. FINDINGS: Image quality: Excellent. ABDOMEN: Lung bases: Lung bases are clear. Heart size is normal. Solid organs: Liver is normal in size and enhancement. Mild, diffuse fatty infiltration of the liver. Gallbladder is within normal limits. Biliary system is non dilated. Pancreas enhances normally. Spleen is normal in size and enhancement. No adrenal nodules. Kidneys demonstrate normal size and enhancement, without hydronephros is. Peritoneum and bowel: Mild circumferential wall thickening involving the rectum. Bowel loops demonstrate normal wall thickness and caliber. No free fluid or air. The appendix is normal. Nodes and vessels: No retroperitoneal or mesenteric adenopathy by size criteria. Aorta and inferior vena cava are normal in size. Miscellaneous: No ventral hernias. PELVIS: Genitourinary: Bladder wall thickness is normal. Prostate is enlarged. Miscellaneous: No inguinal adenopathy. Small bilateral fat containing inguinal hernias. Bones: No suspicious bony lesions. No vertebral body compression fractures. Spine degenerative disc disease and facet arthropathy. Stable right femoral bone island. IMPRESSION: 1. Mild circumferential wall thickening involving the rectum which could be due to underdistention versus neoplastic process. Recommend correlation with clinical findings. 2. No free fluid or free air. 3. No dilated loops of bowel. 4. Normal appendix. 5. Hepatic steatosis. Dictated by: Josephine Hu MD, PhD on 10/29/2019 at 20:04 Approved by: Josephine Hu MD, PhD on 10/29/2019 at 20:09 ECG Data Attestation: I personally reviewed and interpreted this ECG as follows: Prior ECG tracings: not available for review Interpretation: Sinus tachycardia Ventricular rate 108 Normal axis Normal QRS Normal QTC No ST T wave changes MDM Narrative Medical decision making narrative: Patient reports improvement of symptoms after the Protonix and Compazine. I did not perform a rectal exam because patient had obvious bloody stool and also had coffee-ground emesis on his hospital gown. Patient's labs are reassuring his CT scan does show thickening around his rectum with patient states this most likely is scar tissue given his prior surgical history. I feel given his presentation that admitting to the hospital for more urgent endoscopy is warranted. I did discuss the case with Dr. Mart with general surgery who agreed to see the patient upon admission. I discussed the case with Dr. Jennings with hospitalist service who will admit for further evaluation treatment. Discussed the admission with the patient. He expressed understanding and agreement. Discharge Plan Departure Patient Disposition: Admitted As Inpatient Clinical Impression: Acute GI bleeding Discharge Date/Time: 10/29/19 21:51 Admit Date/Time: 10/29/19 21:01 Admit Provider: Geno Jennings
[2019-10-29 18:29] LABS: Add Manual Diff / Slide Review NO; Basophils Absolute Auto 0 /uL (0-100); Basophils Percent Auto 0.4 % (0-2); Eosinophils Absolute Auto 0 /uL (0-450); Eosinophils Percent Auto 0.4 % (2-4); Hematocrit 42.1 % (41-53); Hemoglobin 14.2 g/dL (13.5-17.5); Lymphocytes Absolute Auto 1300 /uL (1100-4500); Lymphocytes Percent Auto 11.3 % (25-40); Mean Corpuscular HGB Conc 33.6 % (30-36); Mean Corpuscular Hemoglobin 30.6 PG (26-34); Monocytes Absolute Auto 600 /uL (0-900); Monocytes Percent Auto 5.6 % (3-14); Neutrophils Absolute Auto 9100 /uL (1500-7000); Neutrophils Percent Auto 82.3 % (50-75); Platelet Count 330 X10^3/uL (150-400); Red Blood Cell Count 4.63 X10^6/uL (4.5-5.9); White Blood Cell Count 11.1 X10^3/uL (4.5-11.0)
[2019-10-29 18:39] LABS: Alanine Aminotransferase 23 IU/L (<50); Albumin 4.7 g/dL (3.5-5.0); Albumin Globulin Ratio 1.1 (1.0-2.8); Alkaline Phosphatase 92 U/L (38-126); Aspartate Aminotransferase 33 IU/L (17-59); BUN Creatinine Ratio 12.4 (6-22); Bilirubin Total 0.6 mg/dL (0.2-1.3); Blood Urea Nitrogen 12 mg/dL (9-20); Calcium 9.8 mg/dL (8.4-10.2); Carbon Dioxide 23 mmol/L (22-32); Chloride 102 mmol/L (98-107); Estimated Glomerular Filt Rate > 60.0 mL/min (>60); Globulin 4.1 g/dL (1.7-4.1); Glucose 112 mg/dL (70-100); HEMOLYSIS < 15 (0-50); Lipase 69 U/L (23-300); Potassium 3.8 mmol/L (3.4-5.1); Sodium 135 mmol/L (137-145); Total Protein 8.8 g/dL (6.3-8.2)
[2019-10-29 18:43] LABS: Prothrombin Time 11.9 SECONDS (10.1-12.7)
[2019-10-29 18:46] LABS: PTT Partial Thromboplastin Tim 36 SECONDS (26.4-36.2)
[2019-10-29] MEDS: PANTOPRAZOLE 80 MG in SODIUM CHLORIDE 0.9% 100 ML 10 ML IV (18:52)
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
[2019-10-29 22:04] LABS: COVID19 -Nasal RAPID Negative (Negative)
[2019-10-29] MEDS: DEXTROSE 5%-0.9% NS 1,000 ML 100 ML IV (22:14)
[2019-10-29] MEDS: TAMSULOSIN 0.4 MG CAPSULE PO (23:32)
[2019-10-30] VITALS (7 sets, daily range): BP systolic 105–137; BP diastolic 75–97; PULSE 67–92; RESP 13–17; TEMP 36.3–36.5; O2SAT 91–98; BMI 27.3
--- NOTE | 2019-10-30 | PATH_ITS ---
[facility] Accession Number: [id number] . 01 Material submitted: . PART A: gastrointestinal site - RANDOM GASTRIC PART B: esophagus - ESOPHAGUS . 01 Clinical history: . THINKS HE HAS AN ULCER . 02 Diagnosis: A. Stomach, Random Biopsies: Antral mucosa with mild chronic gastritis. Negative for Helicobacter by immunohistochemistry. Negative for intestinal metaplasia. Negative for dysplasia and malignancy. . B. Esophagus, Biopsy: Ulcerated squamous mucosa. A PAS stain is negative for fungal organisms. Columnar epithelium negative for intestinal metaplasia. Negative for dysplasia and malignancy. [facility] 11/01/2019 1506 Local . 02 Electronically signed: . Hawa Dykes MD, Pathologist NPI- [id number] . 01 Gross description: . Part A: RANDOM GASTRIC: Received in formalin are 2 fragment(s) of gabriel, soft tissue measuring 0.1 x 0.1 x 0.1 cm to 0.3 x 0.2 x 0.2 cm submitted entirely in 1 cassette(s) Part B: ESOPHAGUS: Received in formalin are 4 fragment(s) of gabriel, soft tissue measuring 0.1 x 0.1 x 0.1 cm to 0.3 x 0.2 x 0.1 cm submitted entirely in 1 cassette(s) /IGNAC[facility] 10/31/2019 0152 Local . 02 Microscopic: . A. An immunohistochemical stain was performed to evaluate for Helicobacter organisms and is negative. The control stain showed appropriate reactivity. . B. An AB/PAS stain was performed to evaluate for fungal organisms and is negative. The control stain showed appropriate reactivity. . * This test was developed and its performance characteristics determined by [employer]. It has not been cleared or approved by the U.S. Food and Drug Administration. The FDA has determined that such clearance or approval is not necessary. This test is used for clinical purposes. It should not be regarded as investigational or for research. . 02 Pathologist provided ICD-10: K20.9 . 02 CPT . 611115, 807592, 696943, Q84150 Performed at: 01 [facility] [address] [id number] MD Jose Chambers MD Phone: [phone] Performed at: [address] [place] [id number] [place] [address] [id number] MD Hawa Dykes MD Phone: [phone]
--- NOTE | 2019-10-30 00:56 | PC.NURSE ---
Pt requested regular HS dose of Tamulosin. One time order given w/small sip of water.
[2019-10-30 05:06] LABS: Add Manual Diff / Slide Review NO; Basophils Absolute Auto 0 /uL (0-100); Basophils Percent Auto 0.8 % (0-2); Eosinophils Absolute Auto 200 /uL (0-450); Eosinophils Percent Auto 3.4 % (2-4); Hematocrit 38.2 % (41-53); Hemoglobin 12.7 g/dL (13.5-17.5); Lymphocytes Absolute Auto 1800 /uL (1100-4500); Lymphocytes Percent Auto 37.9 % (25-40); Mean Corpuscular HGB Conc 33.1 % (30-36); Mean Corpuscular Hemoglobin 30.3 PG (26-34); Mean Corpuscular Volume 91.5 fL (80-100); Monocytes Absolute Auto 600 /uL (0-900); Neutrophils Absolute Auto 2200 /uL (1500-7000); Neutrophils Percent Auto 45.9 % (50-75); Platelet Count 276 X10^3/uL (150-400); Red Blood Cell Count 4.18 X10^6/uL (4.5-5.9); White Blood Cell Count 4.7 X10^3/uL (4.5-11.0)
[2019-10-30 05:11] LABS: Alanine Aminotransferase 18 IU/L (<50); Albumin 3.7 g/dL (3.5-5.0); Albumin Globulin Ratio 1.1 (1.0-2.8); Alkaline Phosphatase 62 U/L (38-126); Aspartate Aminotransferase 25 IU/L (17-59); BUN Creatinine Ratio 11.2 (6-22); Bilirubin Total 0.6 mg/dL (0.2-1.3); Blood Urea Nitrogen 11 mg/dL (9-20); Calcium 8.7 mg/dL (8.4-10.2); Carbon Dioxide 22 mmol/L (22-32); Chloride 107 mmol/L (98-107); Estimated Glomerular Filt Rate > 60.0 mL/min (>60); Globulin 3.3 g/dL (1.7-4.1); Glucose 110 mg/dL (70-100); HEMOLYSIS < 15 (0-50); Potassium 3.5 mmol/L (3.4-5.1); Sodium 135 mmol/L (137-145)
[2019-10-30] MEDS: DEXTROSE 5%-0.9% NS 1,000 ML 100 ML IV (06:53)
--- NOTE | 2019-10-30 07:13 | P.CONS_ITS ---
History of Present Illness Consult details Date Patient Seen: 10/30/19 Time Patient Seen: 07:13 Chief complaint: thinks he has an ulcer Narrative: 54-year-old white male recently treated for a cellulitis with the Keflex and Bactrim has developed upper abdominal pain and vomiting of blood and coffee-ground material also associated with melena. He came to the emergency department late last night. Has stable vital signs. Hemoglobin this morning is 12.2. he has had no further vomiting or stools since admission Meds Home Medications and Allergies Home Medications Medication Instructions Recorded Confirmed Type CBD Cream See Rx Instructions .ROUTE .COMPLEX 10/17/18 10/17/19 History mometasone 0.1 % topical cream 1 applictn TOP DAILY PRN #15 gram 02/14/19 0 10/17/19 Rx lidocaine 1 patch TOP DAILY #30 each 08/08/19 10/17/19 Rx diazepam 10 mg tablet 10 mg PO BID #60 tab 08/16/19 10/17/19 Rx tamsulosin 0.4 mg capsule 0.4 mg PO BEDTIME #90 cap 09/08/19 10/17/19 Rx hydrocodone 10 mg-acetaminophen 1 tab PO Q8H PRN #90 tab 09/26/19 10/17/19 Rx 325 mg tablet finasteride 5 mg tablet 5 mg PO DAILY 10/17/19 10/17/19 History cephalexin 500 mg capsule 500 mg PO QID #28 cap 10/24/19 Rx sulfamethoxazole 800 1 tab PO BID #6 tab 10/24/19 Rx mg-trimethoprim 160 mg tablet Allergies Allergy/AdvReac Type Severity Reaction Status Date / Time No Known Drug Allergies Allergy Verified 10/29/19 17:42 Exam Vital Signs (past 8 hours): - 10/29/19 23:39 10/30/19 05:36 Temperature 98.3 F 97.4 F L Pulse Rate 72 67 Respiratory Rate 16 16 Blood Pressure 110/69 105/75 Pulse Oximetry 97 91 Oxygen Delivery Method Room Air Oxygen Flow Rate 0 Narrative Exam Narrative: Patient is afebrile has normal vital signs heart rate 67 blood pressure 105/75 denies significant abdominal pain. He is alert and oriented. Abdomen is somewhat tender in the midepigastrium. Otherwise no significant physical findings. Objective Labs Result Diagrams: 10/30/19 04:40 08/31/20 04:40 Labs: Laboratory Results - last 24 hr 10/29/19 10/29/19 10/29/19 18:00 18:00 18:00 WBC 11.1 H RBC 4.63 Hgb 14.2 Hct 42.1 MCV 91.0 MCH 30.6 MCHC 33.6 RDW 14.0 Plt Count 330 Neut % (Auto) 82.3 H Lymph % (Auto) 11.3 L [place] % (Auto) 5.6 Eos % (Auto) 0.4 L Baso % (Auto) 0.4 Neut # (Auto) 9100 H Lymph # (Auto) 1300 [place] # (Auto) 600 Eos # (Auto) 0 Baso # (Auto) 0 PT 11.9 INR 1.0 APTT 36 Sodium 135 L Potassium 3.8 Chloride 102 Carbon Dioxide 23 BUN 12 Creatinine 0.97 Estimated GFR > 60.0 BUN/Creatinine Ratio 12.4 Glucose 112 H Lactate Calcium 9.8 Total Bilirubin 0.6 AST 33 ALT 23 Alkaline Phosphatase 92 Total Protein 8.8 H Albumin 4.7 Globulin 4.1 Albumin/Globulin Ratio 1.1 Lipase 69 COVID-19 PCR Blood Type Antibody Screen 10/29/19 10/29/19 10/29/19 18:00 21:02 21:05 WBC RBC Hgb Hct MCV MCH MCHC RDW Plt Count Neut % (Auto) Lymph % (Auto) [place] % (Auto) Eos % (Auto) Baso % (Auto) Neut # (Auto) Lymph # (Auto) [place] # (Auto) Eos # (Auto) Baso # (Auto) PT INR APTT Sodium Potassium Chloride Carbon Dioxide BUN Creatinine Estimated GFR BUN/Creatinine Ratio Glucose Lactate 1.0 Calcium Total Bilirubin AST ALT Alkaline Phosphatase Total Protein Albumin Globulin Albumin/Globulin Ratio Lipase COVID-19 PCR Negative Blood Type O Positive Antibody Screen Negative 10/30/19 10/30/19 04:40 04:40 WBC 4.7 D RBC 4.18 L Hgb 12.7 L Hct 38.2 L MCV 91.5 MCH 30.3 MCHC 33.1 RDW 14.0 Plt Count 276 Neut % (Auto) 45.9 L D Lymph % (Auto) 37.9 D [place] % (Auto) 12.0 Eos % (Auto) 3.4 Baso % (Auto) 0.8 Neut # (Auto) 2200 Lymph # (Auto) 1800 [place] # (Auto) 600 Eos # (Auto) 200 Baso # (Auto) 0 PT INR APTT Sodium 135 L Potassium 3.5 Chloride 107 Carbon Dioxide 22 BUN 11 Creatinine 0.98 Estimated GFR > 60.0 BUN/Creatinine Ratio 11.2 Glucose 110 H Lactate Calcium 8.7 Total Bilirubin 0.6 AST 25 ALT 18 Alkaline Phosphatase 62 Total Protein 7.0 Albumin 3.7 Globulin 3.3 Albumin/Globulin Ratio 1.1 Lipase COVID-19 PCR Blood Type Antibody Screen Assessment & Plan Assessment & Plan narrative: Patient with no prior history of GI bleeding no prior history of peptic ulcer disease. Recently has been on antibiotic therapy for cellulitis. Has developed obvious upper GI bleeding. He will have an EGD this morning. Further workup to follow as needed. No indication for transfusion therapy at this time. Patient is on PPI therapy.
[2019-10-30] MEDS: PANTOPRAZOLE 80 MG in SODIUM CHLORIDE 0.9% 100 ML 10 ML IV (07:59)
--- NOTE | 2019-10-30 08:59 | PC.NURSE ---
Patient states he had yellow colored loose bowel movement this morning (not visualized). Endorsed epigastric pain, that he says improved with the medications that gave him overnight. Denies nausea/vomiting this morning. Remains NPO. Picked up for EGD procedure at this time, patient is to sign consent with MD in pre op.
[2019-10-30] MEDS: LACTATED RINGERS 1,000 ML 42 ML IV (09:14)
[2019-10-30] MEDS: LIDOCAINE 4% SOLN 50 ML 20 ML TOP (09:40)
[2019-10-30] MEDS: fentaNYL 250 MCG/5 ML INJ IV (09:46)
[2019-10-30] MEDS: MIDAZOLAM 5 MG/5 ML VIAL IV (09:49)
--- NOTE | 2019-10-30 09:56 | PM.OP.ENDO ---
Operative Date/Time/Diagnoses Date of procedure: 10/30/19 Time of procedure: 09:57 Pre-op diagnosis: Upper GI bleed Post-op diagnosis: same Procedure & Clinicians Study performed: Esophagoduodenoscopy Same procedure as scheduled: Yes Indications: 54-year-old male hemodynamically stable admitted for hematemesis and melanotic stools Surgeon: Frankie Patel Procedure Notes SCOAP/Timeout: Performed Procedure in detail: Patient placed in left lateral decubitus position. Time out was performed. Procedural sedation was administered with Versed and Fentanyl. A bite block was placed. the scope was inserted into the mouth and advanced through the esophagus and into the stomach. The pylorus was intubated and the duodenum was normal to the 2nd portion. The scope was retroflexed within the stomach and there was no hiatal hernia. No ulcers, very mild gastritis no active hemorrhage. Random gastric biopsies were taken with the forceps hemostasis was observed. The scope was withdrawn into the esophagus the Z line was seen at 40 cm from the incisions. There was no Foster's esophagitis there was significant esophagitis in the distal aspect of the esophagus and random esophageal biopsies were taken with the forceps and hemostasis was observed.. Stomach was desufflated and scope removed. Patient tolerated procedure well. Sedation minutes: 13 Findings: gastritis and other findings (esophagitis) Specimen(s): other (gastric, esophageal) Complications: none Impression: Esophageal itis Post-procedure Recommendations: Continue medication(s) (Protonix) Disposition: Acute Care
--- NOTE | 2019-10-30 10:29 | PC.NURSE ---
Patient back from procedure, alert and awake and talkative. Denies pain or other complaint, other than Im starving and wanting some juice. Post air brush operator states patient tolerated ice chips and water and had no difficulty swallowing. Call light within reach, continue to monitor.
--- NOTE | 2019-10-30 10:33 | SUR.PHASEI ---
1015 late entry A&O; talkative, tolerated ice chips well. Abd. pain has resolved. VSS. Taken to room 222, stood to transfer into his bed, stable on feet. SCDs and tele on by [facility] staff. No questions/concerns
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
[2019-10-30 12:48] LABS: Hematocrit 39.4 % (41-53)
--- NOTE | 2019-10-30 13:44 | PC.NURSE ---
IV and tele dc'd intact. Patient eager to discharge to home. Discharge instructions, prescriptions, and follow up care reviewed with patient. He states understanding and has no further questions or concerns at this time. Patient instructed to ensure follow up scheduled with his PCP and with Dr. Patel at [facility] for EGD follow up. Escorted out, patient declined wheelchair. Patient states he has all belongings.
== END 2019-10-30 13:46 | disposition home or self-care (01) ==
LOC: ED 20:51 → AC 10-30 07:16
PROVIDERS: Internal Medicine; Surgery; Admitting Provider Family Medicine; Emergency Provider Emergency Medicine; Family Provider Family Medicine; PCP Student in an Organized Health Care Education/Training Program; Referring Provider Emergency Medicine; Visit Provider Family Medicine
PROC: 0DJ08ZZ Inspection of Upper Intestinal Tract, Via Natural or Artificial Opening Endoscopic (ICD-10-PCS; CPT 43235; principal; 2019-10-30 10:00)
DX: K29.50 Unspecified chronic gastritis without bleeding (principal); K21.0 Gastro-esophageal reflux disease with esophagitis; R10.9 Unspecified abdominal pain; K92.1 Melena; F41.9 Anxiety disorder, unspecified; N40.1 Benign prostatic hyperplasia with lower urinary tract symptoms; Z11.59 Encounter for screening for other viral diseases
CPT/HCPCS: 43239; 36415; 74177; 80053; 83605; 83690; 85014; 85018; 85025; 85610; 85730; 86850; 86900; 86901; 87635; 93005; 96361; 96365; 96366; 96375; 99284; G0378; C9113; J0780; J2250; J3010; Q9967

== ENCOUNTER 2019-11-16 11:00 | Emergency (ER) | payer OTHER, MEDICAID, SELFPAY ==
[2019-11-08 10:21] VITALS: BMI 27.3
[2019-11-16] VITALS (14 sets, daily range): BP systolic 134–157; BP diastolic 65–89; PULSE 66–109; RESP 12–24; TEMP 36.4–36.6; O2SAT 95–100; BMI 27.3
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
[2019-11-16] MEDS: PANTOPRAZOLE 40 MG VIAL IV (12:27)
[2019-11-16 12:29] LABS: Prothrombin Time 11.5 SECONDS (10.1-12.7)
[2019-11-16 12:30] LABS: Add Manual Diff / Slide Review NO; Basophils Absolute Auto 0 /uL (0-100); Basophils Percent Auto 0.3 % (0-2); Eosinophils Absolute Auto 0 /uL (0-450); Eosinophils Percent Auto 0.4 % (2-4); Hematocrit 41.6 % (41-53); Hemoglobin 13.9 g/dL (13.5-17.5); Lymphocytes Absolute Auto 800 /uL (1100-4500); Lymphocytes Percent Auto 8.9 % (25-40); Mean Corpuscular HGB Conc 33.4 % (30-36); Mean Corpuscular Hemoglobin 30.8 PG (26-34); Mean Corpuscular Volume 92.4 fL (80-100); Monocytes Absolute Auto 600 /uL (0-900); Monocytes Percent Auto 7.2 % (3-14); Neutrophils Absolute Auto 7400 /uL (1500-7000); Neutrophils Percent Auto 83.2 % (50-75); Platelet Count 291 X10^3/uL (150-400); Red Cell Distribution Width 14.4 % (11.6-14.8); White Blood Cell Count 8.9 X10^3/uL (4.5-11.0)
[2019-11-16 12:31] LABS: PTT Partial Thromboplastin Tim 32 SECONDS (26.4-36.2)
[2019-11-16] MEDS: SODIUM CHLORIDE 0.9% 1,000 ML 150 ML IV (12:31)
[2019-11-16 12:34] LABS: Alanine Aminotransferase 27 IU/L (<50); Albumin 4.8 g/dL (3.5-5.0); Albumin Globulin Ratio 1.3 (1.0-2.8); Alkaline Phosphatase 76 U/L (38-126); Aspartate Aminotransferase 41 IU/L (17-59); BUN Creatinine Ratio 17.6 (6-22); Bilirubin Total 0.5 mg/dL (0.2-1.3); Blood Urea Nitrogen 15 mg/dL (9-20); Calcium 9.6 mg/dL (8.4-10.2); Carbon Dioxide 26 mmol/L (22-32); Chloride 101 mmol/L (98-107); Estimated Glomerular Filt Rate > 60.0 mL/min (>60); Globulin 3.8 g/dL (1.7-4.1); Glucose 114 mg/dL (70-100); HEMOLYSIS < 15 (0-50); Potassium 4.2 mmol/L (3.4-5.1); Sodium 138 mmol/L (137-145); Total Protein 8.6 g/dL (6.3-8.2)
--- NOTE | 2019-11-16 13:49 | DI.CT.S_ITS ---
PROCEDURE: CT ABDOMEN PELVIS W CON INDICATIONS: AB PAIN WITH KNOWN ULCER TECHNIQUE: After the administration of intravenous contrast, 5 mm thick sections acquired from the diaphragm to the symphysis. 5 mm coronal and sagittal reformats were acquired. For radiation dose reduction, the following was used: automated exposure control, adjustment of mA and/or kV according to patient size. COMPARISON: [facility], CT, CT ABDOMEN PELVIS W CON, 10/29/2019, 19:50. [facility], CT, CT ABDOMEN PELVIS W CON, 07/11/2017, 12:31. FINDINGS: Image quality: Excellent. ABDOMEN: Lung bases: There is mild dependent atelectasis in the lung bases. Solid organs: Liver is normal in size and enhancement. Gallbladder is mildly distended without secondary signs of acute cholecystitis. Biliary system is non dilated. Pancreas enhances normally. Spleen is normal in size and enhancement. No adrenal nodules. Kidneys demonstrate normal size and enhancement, without hydronephrosis. Peritoneum and bowel: Bowel loops demonstrate normal wall thickness and caliber. The known ulcer is not well visualized with CT. Normal appendix. No free fluid or air. Nodes and vessels: No retroperitoneal or mesenteric adenopathy by size criteria. Aorta and inferior vena cava are normal in size. Miscellaneous: No ventral hernias. PELVIS: Genitourinary: Bladder wall thickness is normal. Miscellaneous: No inguinal hernias or adenopathy. Bones: No suspicious bony lesions. No vertebral body compression fractures. Degenerative changes are seen in the included spine with mild dextroconvex curvature of the lumbar spine. IMPRESSION: No acute abnormality is identified in the abdomen or pelvis. No ascites or pneumoperitoneum. Dictated by: Fredo Velazquez M.D. on 11/16/2019 at 14:10 Approved by: Fredo Velazquez M.D. on 11/16/2019 at 14:22
[2019-11-16] MEDS: PROCHLORPERAZINE 10 MG/2 ML VIAL IV (14:52)
[2019-11-16] MEDS: ONDANSETRON 4 MG/2 ML INJ IV (14:53)
== END 2019-11-16 16:04 | disposition home or self-care (01) ==
PROVIDERS: Emergency Provider Emergency Medicine; Family Provider Family Medicine; PCP Student in an Organized Health Care Education/Training Program
DX: K29.70 Gastritis, unspecified, without bleeding (principal); R11.0 Nausea
CPT/HCPCS: 36415; 74177; 80053; 81003; 83605; 85025; 85610; 85730; 93005; 93010; 96361; 96374; 96375; 99284; C9113; J0780; J2405; Q9967

== ENCOUNTER → 2019-11-22 08:43 | Outpatient (CLI) | payer OTHER, MEDICAID, SELFPAY ==
[2019-11-08 10:21] VITALS: BMI 27.3
[2019-11-22 10:18] LABS: Testosterone 282 ng/dL (71.8-623)
== END ==
PROVIDERS: Family Provider Family Medicine; PCP Student in an Organized Health Care Education/Training Program; Referring Provider Student in an Organized Health Care Education/Training Program; Visit Provider Student in an Organized Health Care Education/Training Program
DX: R68.82 Decreased libido (principal)
CPT/HCPCS: 36415; 84153; 84403

== ENCOUNTER → 2020-03-11 09:01 | Outpatient (CLI) | payer OTHER, MEDICAID, SELFPAY ==
[2019-11-08 10:21] VITALS: BMI 27.3
[2020-03-11 11:08] LABS: COVID19 -Nasal RAPID Negative (Negative)
== END ==
PROVIDERS: Family Provider Family Medicine; PCP Student in an Organized Health Care Education/Training Program; Visit Provider Specialist
DX: Z01.812 Encounter for preprocedural laboratory examination (principal); Z20.822 Contact with and (suspected) exposure to COVID-19
CPT/HCPCS: 87635; C9803

== ENCOUNTER 2020-03-12 07:31 | Day surgery (SDC) | payer OTHER, MEDICAID, SELFPAY ==
[2019-11-08 10:21] VITALS: BMI 27.3
[2020-03-12] VITALS (7 sets, daily range): BP systolic 95–112; BP diastolic 59–70; PULSE 58–75; RESP 10–16; TEMP 36.3; O2SAT 93–99; BMI 30.4
--- NOTE | 2020-03-12 | PATH_ITS ---
[facility] Accession Number: [id number] . 01 Material submitted: . gastrointestinal site - STOMACH BIOPSY . 01 Clinical history: . EGD . 02 Diagnosis: Stomach, Biopsy: Antral and body type mucosa with no diagnostic abnormality. Negative for Helicobacter by immunohistochemistry. Negative for intestinal metaplasia. Negative for dysplasia and malignancy. [facility] 03/18/2020 1603 Local . 02 Electronically signed: . Hawa Dykes MD, Pathologist NPI- [id number] . 01 Gross description: . STOMACH BIOPSY: Received in formalin are 4 fragment(s) of gabriel, soft tissue measuring 0.1 x 0.1 x 0.1 cm to 0.3 x 0.3 x 0.2 cm submitted entirely in 1 cassette(s) /[facility] 03/13/2020 2209 Local . 02 Microscopic: . An immunohistochemical stain was performed to evaluate for Helicobacter organisms and is negative. The control stain showed appropriate reactivity. . * This test was developed and its performance characteristics determined by [facility]. It has not been cleared or approved by the U.S. Food and Drug Administration. The FDA has determined that such clearance or approval is not necessary. This test is used for clinical purposes. It should not be regarded as investigational or for research. . 02 Pathologist provided ICD-10: R10.9 . 02 CPT . 250175, T08199 Performed at: 01 [facility] [address], [place], [place] [id number] MD Jose Chambers MD Phone: [phone] Performed at: 02 [facility] [id number] [place], [place] [id number] MD Hawa Dykes MD Phone: [phone]
[2020-03-12] MEDS: LACTATED RINGERS 1,000 ML 200 ML IV (08:01)
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
[2020-03-12] MEDS: LIDOCAINE 4% SOLN 50 ML 20 ML TOP (08:19)
[2020-03-12] MEDS: MIDAZOLAM 5 MG/5 ML VIAL IV (08:21)
[2020-03-12] MEDS: fentaNYL 250 MCG/5 ML INJ IV (08:21)
--- NOTE | 2020-03-12 08:34 | PM.OP.ENDO ---
Operative Date/Time/Diagnoses Date of procedure: 03/12/20 Time of procedure: 08:34 Pre-op diagnosis: History of upper GI bleed with esophagitis and gastritis Post-op diagnosis: same (Mild healing esophagitis. Gastritis persistent.) Procedure & Clinicians Study performed: EGD with cold biopsy Same procedure as scheduled: Yes Indications: Determine if gastritis and esophagitis have resolved. Surgeon: Earl Walden Procedure Notes SCOAP/Timeout: Performed Procedure in detail: The patient had topical anesthetic applied to oropharynx. She was placed in left lateral decubitus position and underwent IV sedation directed by the surgeon consisting of fentanyl and Versed. A bite block was inserted and the scope was advanced through it into the esophagus. The esophagus was unremarkable. GE junction was noted at 40 cm from the incisors. There were some small areas that appeared to be healing ulcers. They did not appear to be completely resolved.. The stomach insufflated well. There were patchy areas of inflamed mucosa in the stomach. The pyloric channel was patent. The duodenum was remarkable for patchy areas of inflammation in the bulb. It was otherwise normal To the 4th part. The scope was brought back into the stomach and retroflexed. The proximal stomach normal in appearance. Biopsies were taken randomly in the areas of inflammation.. The scope was straightened and brought out through the esophagus again. No other lesions were seen. The scope was removed and the patient tolerated the procedure well. Scope withdrawal time: Not applicable Sedation minutes: 12 Findings: gastritis and other findings (Healing esophageal ulcer. Small. Duodenitis.) Specimen(s): other (Gastric biopsies) Complications: none Post-procedure Recommendations: Continue medication(s) (Pantoprazole) Follow up: months (Three) Disposition: PACU
== END 2020-03-12 09:48 | disposition home or self-care (01) ==
PROVIDERS: Family Provider Family Medicine; PCP Student in an Organized Health Care Education/Training Program; Referring Provider Specialist; Visit Provider Specialist
PROC: 0DJ08ZZ Inspection of Upper Intestinal Tract, Via Natural or Artificial Opening Endoscopic (ICD-10-PCS; CPT 43235; principal; 2020-03-12 08:30)
DX: K25.7 Chronic gastric ulcer without hemorrhage or perforation (principal); F41.9 Anxiety disorder, unspecified; K21.9 Gastro-esophageal reflux disease without esophagitis; E78.5 Hyperlipidemia, unspecified; K20.90 Esophagitis, unspecified without bleeding; K29.50 Unspecified chronic gastritis without bleeding
CPT/HCPCS: 43239; 99152; J2250; J3010

== ENCOUNTER 2020-07-13 15:08 | Emergency (ER) | payer OTHER, MEDICAID, SELFPAY ==
[2019-11-08 10:21] VITALS: BMI 27.3
[2020-07-13 15:38] VITALS: BP 115/78; PULSE 97; RESP 16; TEMP 37.2; O2SAT 98; BMI 28.8
--- NOTE | 2020-07-13 15:49 | PC.NURSE ---
Standby for exam of perineum.
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
[2020-07-13] MEDS: LIDO 1%/SOD BICARB 8.4% (10ML) 10 ML SYRINGE INJ (15:55)
== END 2020-07-13 16:15 | disposition home or self-care (01) ==
PROVIDERS: Emergency Provider Emergency Medicine; Family Provider Family Medicine; PCP Student in an Organized Health Care Education/Training Program
DX: N49.2 Inflammatory disorders of scrotum (principal)
CPT/HCPCS: 10060; 87070; 87075; 87077; 87147; 87186; 87205; 99283

== ENCOUNTER 2020-08-12 11:17 | Emergency (ER) | payer OTHER, MEDICAID, SELFPAY ==
[2019-11-08 10:21] VITALS: BMI 27.3
[2020-08-12 11:51] VITALS: BP 114/75; PULSE 69; RESP 18; TEMP 36.8; O2SAT 99; BMI 29.6
[2020-08-12 14:59] VITALS: BP 116/69; PULSE 58; RESP 16; O2SAT 99
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
[2020-08-12 15:27] VITALS: BP 122/70; PULSE 77; RESP 20; O2SAT 98
--- NOTE | 2020-08-12 15:32 | PC.NURSE ---
pt states rectum is painful during bm's. pt states has pain that radiates to the lower leg.
== END 2020-08-12 15:27 | disposition home or self-care (01) ==
PROVIDERS: Emergency Provider Emergency Medicine; Family Provider Family Medicine; PCP Student in an Organized Health Care Education/Training Program
DX: M54.5 Low back pain (principal); K64.9 Unspecified hemorrhoids
CPT/HCPCS: 51798; 99282; 99283

== ENCOUNTER → 2020-12-04 13:14 | Outpatient (CLI) | payer OTHER, MEDICAID, SELFPAY ==
[2019-11-08 10:21] VITALS: BMI 27.3
[2020-12-05 16:18] LABS: HIV 1 & 2 Ab/Ag 4th Gen Combo NEGATIVE (NEGATIVE); Hep C Virus Ab w/Reflex Quant NEGATIVE s/c (NEGATIVE)
[2020-12-05 19:38] LABS: HSV I/II IgM <0.91 Ratio (0.00-0.90)
[2020-12-05 22:00] LABS: Treponema pallidum Antibodies Non Reactive (Non Reactive)
[2020-12-09 15:58] LABS: HSV 2 IGG AB 1.14 index (0.00-0.90)
== END ==
PROVIDERS: Family Provider Family Medicine; PCP Student in an Organized Health Care Education/Training Program; Referring Provider Nurse Practitioner Family; Visit Provider Nurse Practitioner Family
DX: Z72.51 High risk heterosexual behavior (principal)
CPT/HCPCS: 36415; 86694; 86695; 86696; 86780; 86803; 87389

== ENCOUNTER 2021-03-28 09:02 | Emergency (ER) | payer OTHER, MEDICAID, SELFPAY ==
[2019-11-08 10:21] VITALS: BMI 27.3
[2021-03-28 09:04] VITALS: BP 111/69; PULSE 64; RESP 17; TEMP 36.4; O2SAT 99; BMI 26.6
--- NOTE | 2021-03-28 09:13 | DI.CT.S_ITS ---
PROCEDURE: CT CERVICAL SPINE WO CON INDICATIONS: fall down stairs w/ pain cervical, thoracic, lumbar, sacrum TECHNIQUE: Noncontrast 3 mm thick sections acquired from the skull base to the T4 level. Sagittal and coronal reformats were then constructed. For radiation dose reduction, the following was used: automated exposure control, adjustment of mA and/or kV according to patient size. COMPARISON: None. FINDINGS: Image quality: Excellent. Bones: No fractures or dislocations. Visualized superior ribs are intact. Multilevel multifactorial degenerative changes similar to 05/18/2019 MRI cervical spine. Soft tissues: Prevertebral soft tissues are normal in thickness. No paravertebral hematomas. No apical pneumothoraces. IMPRESSION: No CT evidence of acute traumatic cervical spine injury Dictated by: Maximilian Escobar M.D. on 03/28/2021 at 9:43 Approved by: Maximilian Escobar M.D. on 03/28/2021 at 9:44
--- NOTE | 2021-03-28 09:13 | DI.CT.S_ITS ---
PROCEDURE: CT HEAD/BRAIN WO CON INDICATIONS: fall down stairs w/ pain cervical, thoracic, lumbar, sacrum TECHNIQUE: Noncontrast 4.5 mm thick angled axial sections acquired from the foramen magnum to the vertex, with coronal and sagittal reformats. For radiation dose reduction, the following was used: automated exposure control, adjustment of mA and/or kV according to patient size. COMPARISON: None. FINDINGS: Image quality: Excellent. CSF spaces: Basal cisterns are patent. No extra-axial fluid collections. Ventricles are normal in size and shape. Brain: No midline shift. No intracranial masses or hemorrhage. De La Torre-white matter interface is normal. Skull and face: Calvarium and visualized facial bones are intact, without suspicious lesions. Sinuses: Visualized sinuses and mastoids are clear. IMPRESSION: No acute intracranial finding. Dictated by: Maximilian Escobar M.D. on 03/28/2021 at 9:44 Approved by: Maximilian Escobar M.D. on 03/28/2021 at 9:46
--- NOTE | 2021-03-28 09:13 | DI.CT.S_ITS ---
PROCEDURE: CT THORACIC SPINE WO CON INDICATIONS: fall down stairs w/ pain cervical, thoracic, lumbar, sacrum TECHNIQUE: Noncontrast 3 mm thick sections acquired through the region of interest in the thoracic spine. Sagittal and coronal reformats were then constructed. For radiation dose reduction, the following was used: automated exposure control. COMPARISON: None. FINDINGS: Image quality: Excellent. Bones: Normal thoracic vertebral body height and alignment. No evidence of fracture. No suspicious lytic or blastic osseous lesion. No prevertebral fat stranding or hematoma. Paraspinous soft tissues are unremarkable. Soft tissues: No paravertebral masses or hematomas. Included portions of the lungs and pleural spaces are clear. IMPRESSION: No CT evidence of acute traumatic thoracic spine injury. Dictated by: Maximilian Escobar M.D. on 03/28/2021 at 9:48 Approved by: Maximilian Escobar M.D. on 03/28/2021 at 9:49
--- NOTE | 2021-03-28 09:13 | DI.CT.S_ITS ---
PROCEDURE: CT LUMBAR SPINE WO CON INDICATIONS: fall down stairs w/ pain cervical, thoracic, lumbar, sacrum TECHNIQUE: Noncontrast 3 mm thick sections acquired from the T12 level to the sacrum. Sagittal and coronal reformats were constructed. For radiation dose reduction, the following was used: automated exposure control. COMPARISON: None. FINDINGS: Image quality: Excellent. Bones: No fracture. Normal vertebral body height. Mild scoliosis Degenerative retrolisthesis of L2 on L3. Otherwise normal alignment. Multilevel multifactorial degenerative changes similar to MRI lumbar spine 10/02/2019. Soft tissues: No retroperitoneal masses or hematomas. Visualized aorta is normal in caliber. IMPRESSION: No CT evidence of acute traumatic lumbar spine injury. Dictated by: Maximilian Escobar M.D. on 03/28/2021 at 9:46 Approved by: Maximilian Escobar M.D. on 03/28/2021 at 9:48
--- NOTE | 2021-03-28 09:26 | DI.CT.S_ITS ---
PROCEDURE: CT SACRUM INDICATIONS: fall down stairs w/ pain cervical, thoracic, lumbar, sacrum TECHNIQUE: Noncontrast 3 mm thick sections acquired through the sacrum and coccyx, with sagittal and oblique coronal reformats then constructed. For radiation dose reduction, the following was used: automated exposure control. COMPARISON: None. FINDINGS: Image quality: Excellent. Bones: No fracture. Sacroiliac joints unremarkable. No suspicious lytic or blastic osseous lesion. Soft tissues: No presacral masses. Visualized rectum and inferior bowel loops are normal in size and caliber. No pathologic free pelvic fluid. IMPRESSION: No acute finding. Dictated by: Maximilian Escobar M.D. on 03/28/2021 at 9:50 Approved by: Maximilian Escobar M.D. on 03/28/2021 at 9:56
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
[2021-03-28 11:00] VITALS: BP 110/70; PULSE 64; RESP 18; O2SAT 99
[2021-03-28] MEDS: KETOROLAC 30 MG/ML VIAL IM (11:14)
== END 2021-03-28 12:21 | disposition home or self-care (01) ==
PROVIDERS: Emergency Provider Emergency Medicine; Family Provider Family Medicine; PCP Student in an Organized Health Care Education/Training Program
DX: S30.0XXA Contusion of lower back and pelvis, initial encounter (principal); S76.011A Strain of muscle, fascia and tendon of right hip, initial encounter; Z87.891 Personal history of nicotine dependence; W10.9XXA Fall (on) (from) unspecified stairs and steps, initial encounter; Y93.89 Activity, other specified; Y92.009 Unspecified place in unspecified non-institutional (private) residence as the place of occurrence of the external cause
CPT/HCPCS: 70450; 72125; 72128; 72131; 96372; 99284; J1885

== ENCOUNTER → 2021-08-27 12:57 | Outpatient (CLI) | payer OTHER, MEDICAID, SELFPAY ==
[2019-11-08 10:21] VITALS: BMI 27.3
[2021-08-27 14:49] LABS: Appearance Urine UA CLEAR; Bilirubin Urine UA NEGATIVE (NEGATIVE); Color Urine UA YELLOW; Glucose Urine UA NEGATIVE (Negative); Ketones Urine UA NEGATIVE (NEGATIVE); Leukocyte Esterase Urine UA NEGATIVE (NEGATIVE); Nitrite Urine UA NEGATIVE (Negative); Occult Blood Urine UA NEGATIVE (Negative); Protein Urine UA NEGATIVE (Negative); Urobilinogen Urine UA 0.2 E.U./dL (0.2); pH Urine UA 5.5 (4.5-8.0)
[2021-08-27 14:52] LABS: Bacteria Urine None Seen; Culture Indicated Urine Cult Not Indicated; RBC Urine None Seen (0-5/HPF); Urine Comments Microscopic Normal; WBC Urine None Seen (0-5/HPF)
[2021-08-27 16:11] LABS: Urine N gonorrhoeae NOT DETECTED
[2021-08-27 16:13] LABS: Urine Chlamydia NOT DETECTED
== END ==
PROVIDERS: Family Provider Family Medicine; PCP Student in an Organized Health Care Education/Training Program; Referring Provider Student in an Organized Health Care Education/Training Program; Visit Provider Student in an Organized Health Care Education/Training Program
DX: Z72.51 High risk heterosexual behavior (principal); R30.0 Dysuria
CPT/HCPCS: 81001; 87491; 87591

== ENCOUNTER → 2021-08-29 13:06 | Outpatient (CLI) | payer OTHER, MEDICAID, SELFPAY ==
[2019-11-08 10:21] VITALS: BMI 27.3
[2021-08-30 16:52] LABS: Treponema pallidum Antibodies Non Reactive (Non Reactive)
== END ==
PROVIDERS: Internal Medicine; Family Provider Family Medicine; PCP Student in an Organized Health Care Education/Training Program; Referring Provider Student in an Organized Health Care Education/Training Program; Visit Provider Student in an Organized Health Care Education/Training Program
DX: R30.9 Painful micturition, unspecified (principal); Z91.89 Other specified personal risk factors, not elsewhere classified
CPT/HCPCS: 36415; 86780

== ENCOUNTER → 2021-09-10 15:48 | Outpatient (CLI) | payer OTHER, MEDICAID, SELFPAY ==
[2019-11-08 10:21] VITALS: BMI 27.3
[2021-09-11 06:34] LABS: RPR Screen Non Reactive (Non Reactive)
== END ==
PROVIDERS: Family Provider Family Medicine; PCP Student in an Organized Health Care Education/Training Program; Referring Provider Student in an Organized Health Care Education/Training Program; Visit Provider Student in an Organized Health Care Education/Training Program
DX: Z72.51 High risk heterosexual behavior (principal); Z20.2 Contact with and (suspected) exposure to infections with a predominantly sexual mode of transmission
CPT/HCPCS: 36415; 86592

== ENCOUNTER → 2021-09-24 10:54 | Outpatient (CLI) | payer OTHER, MEDICAID, SELFPAY ==
[2019-11-08 10:21] VITALS: BMI 27.3
[2021-09-25 06:20] LABS: RPR Screen Non Reactive (Non Reactive)
[2021-09-25 16:33] LABS: Hep C Virus Ab w/Reflex Quant NEGATIVE s/c (NEGATIVE)
[2021-09-25 16:34] LABS: HIV 1 & 2 Ab/Ag 4th Gen Combo NEGATIVE (NEGATIVE)
== END ==
PROVIDERS: Family Provider Family Medicine; PCP Student in an Organized Health Care Education/Training Program; Referring Provider Student in an Organized Health Care Education/Training Program; Visit Provider Student in an Organized Health Care Education/Training Program
DX: Z20.2 Contact with and (suspected) exposure to infections with a predominantly sexual mode of transmission (principal); Z72.51 High risk heterosexual behavior
CPT/HCPCS: 36415; 86592; 86803; 87389

== ENCOUNTER → 2022-03-11 15:10 | Outpatient (CLI) | payer OTHER, MEDICAID, SELFPAY ==
[2021-10-20 11:00] VITALS: BMI 27.3
[2022-03-11 18:11] LABS: Cholesterol 239 mg/dL (140-199); HDL Cholesterol 50 mg/dL (40-60); LDL Cholesterol Calculated 132 mg/dL (<100); Triglycerides 283 mg/dL (35-150)
== END ==
PROVIDERS: Family Provider Family Medicine; PCP Student in an Organized Health Care Education/Training Program; Referring Provider Student in an Organized Health Care Education/Training Program; Visit Provider Student in an Organized Health Care Education/Training Program
DX: Z13.220 Encounter for screening for lipoid disorders (principal)
CPT/HCPCS: 36415; 80061

== ENCOUNTER → 2022-03-17 13:10 | Outpatient (CLI) | payer OTHER, MEDICAID, SELFPAY ==
[2021-10-20 11:00] VITALS: BMI 27.3
--- NOTE | 2022-03-17 | DI.RAD.S_ITS ---
PROCEDURE: XR HAND RT MIN 3V INDICATIONS: Pain in right hand TECHNIQUE: 3 views of the hand(s) acquired. COMPARISON: None. FINDINGS: Bones: No fractures or dislocations. Carpal bones are normally aligned. No suspicious bony lesions. Soft tissues: No suspicious soft tissue calcifications. IMPRESSION: Normal right hand. Dictated by: Janes Garcia M.D. on 03/17/2022 at 16:37 Approved by: Janes Garcia M.D. on 03/17/2022 at 16:41
== END ==
PROVIDERS: Family Provider Family Medicine; PCP Student in an Organized Health Care Education/Training Program; Referring Provider Chiropractor; Visit Provider Chiropractor
DX: M79.641 Pain in right hand (principal)
CPT/HCPCS: 73130

== ENCOUNTER 2022-05-26 08:17 | Emergency (ER) | payer OTHER, MEDICAID, SELFPAY ==
[2021-10-20 11:00] VITALS: BMI 27.3
[2022-05-26 08:26] VITALS: BP 137/86; PULSE 71; RESP 28; TEMP 36.8; O2SAT 96; BMI 31.7
--- NOTE | 2022-05-26 08:30 | DI.RAD.S_ITS ---
PROCEDURE: XR ANKLE RT MIN 3V INDICATIONS: fall TECHNIQUE: 3 views of the ankle were acquired. COMPARISON: None. FINDINGS: Bones: No acute fractures or dislocations. There is a small well corticated ossified structure distal to the fibula, consistent with an ossicle. Ankle mortise is normally aligned. No suspicious bony lesions. Soft tissues: No tibiotalar joint effusion. Achilles tendon appears normal. IMPRESSION: No acute fracture. No osseous lesion. If symptoms and/or clinical suspicion for pathology persist, further assessment with repeat, or advanced imaging (e.g., CT, MRI, or bone scan) may be helpful for further assessment. Dictated by: Zenaida Amezcua M.D. on 05/26/2022 at 8:51 Approved by: Zenaida Amezcua M.D. on 05/26/2022 at 9:01
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
[2022-05-26] MEDS: KETOROLAC 30 MG/ML VIAL IM (09:05)
[2022-05-26] MEDS: ONDANSETRON 4 MG ODT SL (09:05)
[2022-05-26] MEDS: HYDROCODONE/ACET 5/325 TABLET 2 TAB PO (09:33)
[2022-05-26 09:59] VITALS: BP 142/78; PULSE 63; RESP 24; O2SAT 100
== END 2022-05-26 10:01 | disposition home or self-care (01) ==
PROVIDERS: Emergency Provider Emergency Medicine; Family Provider Family Medicine; PCP Student in an Organized Health Care Education/Training Program
DX: S93.401A Sprain of unspecified ligament of right ankle, initial encounter (principal); W10.9XXA Fall (on) (from) unspecified stairs and steps, initial encounter
CPT/HCPCS: 73610; 96372; 99283; J1885

== ENCOUNTER → 2023-05-20 13:05 | Outpatient (CLI) | payer OTHER, MEDICAID, SELFPAY ==
[2023-03-30 12:57] VITALS: BMI 27.3
--- NOTE | 2023-05-20 13:08 | DI.RAD.S_ITS ---
PROCEDURE: XR ELBOW LT MIN 3V INDICATIONS: Worsening neck pain with radiculopathy TECHNIQUE: 3 views of the elbow were acquired. COMPARISON: None. FINDINGS: Bones: No fractures or dislocations. No suspicious bony lesions. Soft tissues: No elbow joint effusion. No suspicious soft tissue calcifications. IMPRESSION: No acute bony abnormality or significant joint effusion. Dictated by: Luke Allen M.D. on 05/20/2023 at 14:40 Approved by: Luke Allen M.D. on 05/20/2023 at 14:40
--- NOTE | 2023-05-20 13:08 | DI.RAD.S_ITS ---
PROCEDURE: XR CERVICAL SPINE 2V OR 3V INDICATIONS: Worsening neck pain with radiculopathy TECHNIQUE: 3 view(s) of the cervical spine were acquired. COMPARISON: None. FINDINGS: Bones: No fractures or dislocations to the T1 level. The lateral masses of C1 appear intact on the odontoid view. No suspicious bony lesions. Grade 1 anterolisthesis of C4 on C5, C5 on C6. Moderate disc height loss at C5-6, C6-7. Mild disc height loss at remaining levels. Diffuse facet arthrosis, most prominent at bilateral C6-7 and left C5-6. Soft tissues: No prevertebral soft tissue swelling. IMPRESSION: Mild to moderate, multilevel degenerative disc disease and facet arthrosis. Dictated by: Luke Allen M.D. on 05/20/2023 at 14:37 Approved by: Luke Allen M.D. on 05/20/2023 at 14:40
--- NOTE | 2023-05-20 13:34 | DI.RAD.S_ITS ---
PROCEDURE: XR THORACIC SPINE 2V INDICATIONS: BACK PAIN TECHNIQUE: 2 views of the thoracic spine were acquired. COMPARISON: None. FINDINGS: Bones: No fractures or dislocations. No suspicious bony lesions. 12 pairs of ribs are noted, and appear intact where visualized. There is multilevel intervertebral disc height loss with degenerative endplate changes and marginal spurring. Diffusely decreased osseous mineralization. Soft tissues: No paravertebral stripe thickening. IMPRESSION: Multilevel degenerative changes of the thoracic spine. No vertebral body compression deformities. Dictated by: Keenan Wiseman M.D. on 05/20/2023 at 14:53 Approved by: Keenan Wiseman M.D. on 05/20/2023 at 14:54
--- NOTE | 2023-05-20 13:34 | DI.RAD.S_ITS ---
PROCEDURE: XR PELVIS 1-2V INDICATIONS: BACK PAIN TECHNIQUE: 1 view(s) of the pelvis acquired. COMPARISON: None. FINDINGS: Bones: No fractures or dislocations. Mild degenerative changes of the bilateral hips. No suspicious bony lesions. Soft tissues: Visualized bowel gas pattern is normal. No suspicious soft tissue calcifications. IMPRESSION: No acute bony abnormality. Mild degenerative changes of the bilateral hips. Dictated by: Keenan Wiseman M.D. on 05/20/2023 at 14:53 Approved by: Keenan Wiseman M.D. on 05/20/2023 at 14:53
--- NOTE | 2023-05-20 13:34 | DI.RAD.S_ITS ---
PROCEDURE: XR LUMBAR SPINE 2-3V INDICATIONS: BACK PAIN TECHNIQUE: 3 views of the lumbar spine were acquired. COMPARISON: [facility], , XR LUMBAR SPINE 2-3V, 08/08/2019, 11:02. FINDINGS: Bones: 5 [id number] vertebrae are present. Dextroscoliotic curvature of the lumbar spine, mildly progressed compared to prior. There is multilevel facet arthropathy, worse at L4-5 and L5-S1. Multilevel disc height loss with degenerative endplate changes and spurring is present. No vertebral body compression fractures. No suspicious bony lesions. Soft tissues: Overlying bowel gas pattern is normal. No suspicious soft tissue calcifications. IMPRESSION: Multilevel degenerative changes of the lumbar spine. Dextroscoliotic curvature appears mildly progressed compared to prior. Dictated by: Keenan Wiseman M.D. on 05/20/2023 at 14:51 Approved by: Keenan Wiseman M.D. on 05/20/2023 at 14:52
== END ==
PROVIDERS: Family Provider Family Medicine; PCP Family Medicine; Referring Provider Chiropractor; Visit Provider Chiropractor
DX: M47.22 Other spondylosis with radiculopathy, cervical region (principal); M47.814 Spondylosis without myelopathy or radiculopathy, thoracic region; M47.816 Spondylosis without myelopathy or radiculopathy, lumbar region; M47.817 Spondylosis without myelopathy or radiculopathy, lumbosacral region; M25.522 Pain in left elbow; M99.03 Segmental and somatic dysfunction of lumbar region; M50.11 Cervical disc disorder with radiculopathy, high cervical region; M99.04 Segmental and somatic dysfunction of sacral region; M99.05 Segmental and somatic dysfunction of pelvic region; M10.9 Gout, unspecified; F41.9 Anxiety disorder, unspecified; N52.9 Male erectile dysfunction, unspecified; Z63.8 Other specified problems related to primary support group
CPT/HCPCS: 72040; 72070; 72100; 72190; 73080

== ENCOUNTER → 2023-05-27 13:48 | Outpatient (CLI) | payer OTHER, MEDICAID, SELFPAY ==
[2023-03-30 12:57] VITALS: BMI 27.3
[2023-05-27 14:46] LABS: Add Manual Diff / Slide Review NO; Basophils Absolute Auto 0 /uL (0-100); Basophils Percent Auto 0.8 % (0-2); Eosinophils Absolute Auto 200 /uL (0-450); Eosinophils Percent Auto 3.9 % (2-4); Hematocrit 42.9 % (41-53); Hemoglobin 14.4 g/dL (13.5-17.5); Lymphocytes Absolute Auto 2100 /uL (1100-4500); Lymphocytes Percent Auto 41.7 % (25-40); Mean Corpuscular HGB Conc 33.6 % (30-36); Mean Corpuscular Volume 95.1 fL (80-100); Monocytes Absolute Auto 500 /uL (0-900); Monocytes Percent Auto 9.9 % (3-14); Neutrophils Absolute Auto 2200 /uL (1500-7000); Neutrophils Percent Auto 43.7 % (50-75); Platelet Count 281 X10^3/uL (150-400); Red Blood Cell Count 4.51 X10^6/uL (4.5-5.9); Red Cell Distribution Width 15.1 % (11.6-14.8)
[2023-05-27 15:21] LABS: Alanine Aminotransferase 17 IU/L (<50); Albumin 4.3 g/dL (3.5-5.0); Albumin Globulin Ratio 1.3 (1.0-2.8); Alkaline Phosphatase 77 U/L (38-126); Aspartate Aminotransferase 29 IU/L (17-59); BUN Creatinine Ratio 17.4 (6-22); Bilirubin Total 0.7 mg/dL (0.2-1.3); Blood Urea Nitrogen 15 mg/dL (9-20); Calcium 9.4 mg/dL (8.4-10.2); Carbon Dioxide 27 mmol/L (22-32); Chloride 109 mmol/L (98-107); Cholesterol 226 mg/dL (140-199); Estimated Glomerular Filt Rate > 60 mL/min (>60); Globulin 3.4 g/dL (1.7-4.1); Glucose 97 mg/dL (70-100); HDL Cholesterol 60 mg/dL (40-60); HEMOLYSIS < 15 (0-50); LDL Cholesterol Calculated 142 mg/dL (<100); Potassium 4.4 mmol/L (3.4-5.1); Sodium 141 mmol/L (137-145); Total Protein 7.7 g/dL (6.3-8.2); Triglycerides 120 mg/dL (35-150)
== END ==
PROVIDERS: Family Provider Family Medicine; PCP Family Medicine; Referring Provider Family Medicine; Visit Provider Family Medicine
DX: F41.9 Anxiety disorder, unspecified (principal); N52.9 Male erectile dysfunction, unspecified; M54.12 Radiculopathy, cervical region; M10.9 Gout, unspecified; M25.522 Pain in left elbow; Z63.8 Other specified problems related to primary support group
CPT/HCPCS: 36415; 80053; 80061; 84550; 85025

== ENCOUNTER → 2024-06-14 16:43 | Outpatient (CLI) | payer MEDICAID, SELFPAY ==
[2023-03-30 12:57] VITALS: BMI 27.3
[2024-06-14 17:15] LABS: Add Manual Diff / Slide Review NO; Basophils Absolute Auto 100 /uL (0-100); Basophils Percent Auto 0.8 % (0-2); Eosinophils Absolute Auto 200 /uL (0-450); Eosinophils Percent Auto 3.5 % (2-4); Hematocrit 40.4 % (41-53); Hemoglobin 13.9 g/dL (13.5-17.5); Lymphocytes Absolute Auto 2600 /uL (1100-4500); Lymphocytes Percent Auto 41.2 % (25-40); Mean Corpuscular HGB Conc 34.5 % (30-36); Mean Corpuscular Hemoglobin 30.9 PG (26-34); Mean Corpuscular Volume 89.6 fL (80-100); Monocytes Absolute Auto 500 /uL (0-900); Monocytes Percent Auto 8.3 % (3-14); Neutrophils Absolute Auto 2900 /uL (1500-7000); Neutrophils Percent Auto 46.2 % (50-75); Platelet Count 224 X10^3/uL (150-400); Red Cell Distribution Width 14.5 % (11.6-14.8); White Blood Cell Count 6.3 X10^3/uL (4.5-11.0)
[2024-06-14 17:28] LABS: Alanine Aminotransferase 24 IU/L (<50); Albumin 4.6 g/dL (3.5-5.0); Albumin Globulin Ratio 1.4 (1.0-2.8); Alkaline Phosphatase 63 U/L (38-126); Aspartate Aminotransferase 29 IU/L (17-59); BUN Creatinine Ratio 17.8 (6-22); Bilirubin Total 0.5 mg/dL (0.2-1.3); Blood Urea Nitrogen 23 mg/dL (9-20); Calcium 9.5 mg/dL (8.4-10.2); Carbon Dioxide 27 mmol/L (22-32); Chloride 104 mmol/L (98-107); Estimated Glomerular Filt Rate > 60 mL/min (>60); Globulin 3.4 g/dL (1.7-4.1); Glucose 95 mg/dL (70-100); HEMOLYSIS < 15 (0-50); Potassium 4.5 mmol/L (3.4-5.1); Sodium 140 mmol/L (137-145)
[2024-06-14 17:55] LABS: TSH w/ Reflex to FT4 2.36 uIU/mL (0.47-4.68)
[2024-06-14 18:01] LABS: Testosterone 294 ng/dL (71.8-623)
== END ==
LOC: LAB 16:45
PROVIDERS: Family Provider Family Medicine; PCP Family Medicine; Referring Provider Physician Assistant; Visit Provider Physician Assistant
DX: R53.83 Other fatigue (principal); F32.9 Major depressive disorder, single episode, unspecified; N52.9 Male erectile dysfunction, unspecified
CPT/HCPCS: 36415; 80053; 84403; 84443; 85025

== ENCOUNTER → 2024-06-29 17:16 | Outpatient (CLI) | payer OTHER, SELFPAY ==
[2023-03-30 12:57] VITALS: BMI 27.3
--- NOTE | 2024-06-29 17:18 | DI.RAD.S_ITS ---
PROCEDURE: XR CERVICAL SPINE 2V OR 3V INDICATIONS: back and neck pain TECHNIQUE: 3 view(s) of the cervical spine were acquired. COMPARISON: Located Within [facility], CR, XR CERVICAL SPINE 2V OR 3V, 05/20/2023, 13:12. FINDINGS: Bones: No fractures or dislocations to the C7 level. Multilevel anterolisthesis includes C3 on C4, C4 on C5 and C5 on C6, all of which measures 0.3 cm. Severe C6-7 disc height loss with adjacent endplate sclerosis. There is multilevel anterior osteophytosis. The lateral masses of C1 appear intact on the odontoid view. No suspicious bony lesions. Soft tissues: No prevertebral soft tissue swelling. IMPRESSION: Degenerative change of the cervical spine including multilevel spondylolisthesis without evidence of acute osseous abnormality. Dictated by: Yimi Tejeda M.D. on 07/01/2024 at 17:32 Approved by: Yimi Tejeda M.D. on 07/01/2024 at 17:34
--- NOTE | 2024-06-29 17:18 | DI.RAD.S_ITS ---
PROCEDURE: XR LUMBAR SPINE 2-3V INDICATIONS: back and neck pain TECHNIQUE: 3 views of the lumbar spine were acquired. COMPARISON: [facility], CR, XR LUMBAR SPINE 2-3V, 05/20/2023, 13:42. FINDINGS: Bones: 5 [id number] vertebrae are present. Mild dextroscoliosis has its apex at the L2-L3 interspace. Severe disc height loss from levels L1-L2 through L4-L5 is associated with adjacent endplate sclerosis and anterior osteophytosis. Chronic appearing anterior wedging deformities of the L1 and L2 vertebral bodies have resulted in less than 25% anterior height loss. There is otherwise normal bony alignment. No vertebral body compression fractures. No suspicious bony lesions. Soft tissues: Overlying bowel gas pattern is normal. No suspicious soft tissue calcifications. IMPRESSION: Multilevel degenerative change of the lumbar spine without evidence of acute osseous abnormality. Dictated by: Yimi Tejeda M.D. on 07/01/2024 at 17:34 Approved by: Yimi Tejeda M.D. on 07/01/2024 at 17:36
== END ==
PROVIDERS: Family Provider Family Medicine; PCP Family Medicine; Referring Provider Family Medicine; Visit Provider Family Medicine
DX: M47.812 Spondylosis without myelopathy or radiculopathy, cervical region (principal); M47.816 Spondylosis without myelopathy or radiculopathy, lumbar region; M43.12 Spondylolisthesis, cervical region; M54.2 Cervicalgia; M54.9 Dorsalgia, unspecified
CPT/HCPCS: 72040; 72100

== ENCOUNTER → 2024-09-20 08:02 | Outpatient (CLI) | payer OTHER, SELFPAY ==
[2024-08-01 09:13] VITALS: BMI 27.3
--- NOTE | 2024-09-20 08:03 | DI.MRI.S_ITS ---
PROCEDURE: MR CERVICAL SPINE WO CON INDICATIONS: Neck pain TECHNIQUE: Noncontrast sagittal T1 spin echo and T2 fast spin echo, sagittal STIR, foraminal oblique sagittal T2 fast spin echo, and axial gradient echo or T2 fast spin echo through the cervical spine. COMPARISON: [facility], MR, MR CERVICAL SPINE WO CON, 05/18/2019, 18:02. FINDINGS: Image quality: Excellent. Alignment and Curvature: There is normal bony alignment. Bone Marrow: Marrow demonstrates normal overall signal. Spinal Cord: There is flattening of the ventral cord at C4-C5 with central cord myelomalacia. No cerebellar tonsillar herniation. Paraspinous Soft Tissues: No paravertebral masses. Prevertebral soft tissues are normal in thickness. The combination of disc bulging with endplate spurring and ligamentum flavum hypertrophy combined with facet arthropathy result in the following: C2-C3: Shallow disc bulge with mild left foraminal stenosis. C3-C4: Mild central canal stenosis with severe left and moderate right foraminal stenosis. C4-C5: Severe central canal stenosis with severe bilateral foraminal stenosis with associated central cord myelomalacia. C5-C6: Moderate central canal stenosis with severe left and mild right foraminal stenosis. C6-C7: Moderate central canal stenosis with severe left and mild right foraminal stenosis. C7-T1: Normal appearance. IMPRESSION: Multilevel degenerative disc disease results and varying degrees of central canal and foraminal stenosis most pronounced centrally at the C4-C5 level with there is associated central cord myelomalacia. There is interval regression compared with prior imaging in 2019. Dictated by: Gila Melissa M.D. on 09/20/2024 at 11:52 Approved by: Gila Melissa M.D. on 09/20/2024 at 11:56
== END ==
LOC: MRI 08:03
PROVIDERS: Family Provider Family Medicine; PCP Family Medicine; Referring Provider Family Medicine; Visit Provider Family Medicine
DX: S16.1XXA Strain of muscle, fascia and tendon at neck level, initial encounter (principal); M50.31 Other cervical disc degeneration, high cervical region; M48.02 Spinal stenosis, cervical region; G95.89 Other specified diseases of spinal cord; M54.16 Radiculopathy, lumbar region
CPT/HCPCS: 36415; 72141; 80053; 81374; 84550; 85651; 86140

== ENCOUNTER → 2024-09-20 12:54 | Outpatient (CLI) | payer OTHER, SELFPAY ==
[2024-08-01 09:13] VITALS: BMI 27.3
[2024-09-20 14:07] LABS: Alanine Aminotransferase 25 IU/L (<50); Albumin 4.5 g/dL (3.5-5.0); Albumin Globulin Ratio 1.6 (1.0-2.8); Alkaline Phosphatase 79 U/L (38-126); Blood Urea Nitrogen 17 mg/dL (9-20); Calcium 9.3 mg/dL (8.4-10.2); Carbon Dioxide 26 mmol/L (22-32); Chloride 105 mmol/L (98-107); Estimated Glomerular Filt Rate > 60 mL/min (>60); Globulin 2.9 g/dL (1.7-4.1); Glucose 48 mg/dL (70-99); HEMOLYSIS < 15 (0-50); Potassium 4.5 mmol/L (3.4-5.1); Sodium 139 mmol/L (137-145); Total Protein 7.4 g/dL (6.3-8.2); Uric Acid 7.8 mg/dL (3.5-8.5)
== END ==
PROVIDERS: Family Provider Family Medicine; PCP Family Medicine; Referring Provider Physician Assistant; Visit Provider Physician Assistant
DX: M54.16 Radiculopathy, lumbar region (principal)
CPT/HCPCS: 36415; 80053; 81374; 84550; 85651; 86140

== ENCOUNTER 2024-09-28 13:07 | Emergency (ER) | payer OTHER, SELFPAY ==
[2024-08-01 09:13] VITALS: BMI 27.3
[2024-09-28] VITALS (21 sets, daily range): BP systolic 105–136; BP diastolic 62–92; PULSE 65–96; RESP 15–20; TEMP 36.6; O2SAT 91–99; BMI 26.6
--- NOTE | 2024-09-28 15:29 | DI.MRI.S_ITS ---
PROCEDURE: MR LUMBAR SPINE WO CON INDICATIONS: Back pain/urinary/bowel incontinence TECHNIQUE: Noncontrast sagittal T1 spin echo and T2 fast echo, sagittal STIR, and T2 fast spin echo through the lumbar spine. In cases with scoliosis, additional coronal T2 fast spin echo may be performed. COMPARISON: [facility], MR, MR LUMBAR SPINE WO/W CON, 10/02/2019, 13:14. [facility], MR, MR LUMBAR SPINE WO CON, 08/24/2019, 9:36. [facility], CR, XR LUMBAR SPINE 2-3V, 06/29/2024, 17:14. [facility], CT, CT LUMBAR SPINE WO CON, 03/28/2021, 9:22. FINDINGS: Image quality: Diagnostic, with note made of motion artifact. Alignment and Curvature: Mild to moderate dextroconvex scoliotic curvature is seen. There is minimal retrolisthesis seen at L1-L2, L2-L3, L3-L4, and L4-L5. Bone Marrow: Marrow is of normal overall signal. No acute vertebral body compression fractures. Spinal Cord: Conus medullaris terminates at the L1 level. Visualized cord demonstrates normal signal and size. Paraspinous Soft Tissues: No paravertebral masses. T12-L1: Mild loss of disc height is seen. Loss of disc signal is seen. Mild generalized disc bulge is seen. There is a mild central/right disc protrusion. Mild facet joint hypertrophy is seen. No significant neural foraminal narrowing is seen. Mild central canal narrowing is seen. When comparison is made with the prior images, these findings are similar. L1-L2: At least moderate loss of disc height and disc signal can be seen. Bridging endplate osteophytes are seen. Moderate generalized disc bulge is seen. There is a superimposed central disc osteophyte protrusion. Mild facet joint hypertrophy is seen. There is moderate left-sided and minimal right-sided neural foraminal narrowing. Mild central canal narrowing is seen. When comparison is made with the prior images, these findings are similar. L2-L3: At least moderate loss of disc height and disc signal can be seen. Reactive marrow endplate changes are seen, which are hyperintense on T1-weighted and T2- weighted imaging and most consistent with fatty metaplasia (Modic type II changes). At least moderate disc bulge is seen, which is eccentric to the left. There is a superimposed central disc osteophyte protrusion. There is moderate facet hypertrophy seen, left worse than right. There is moderate right-sided and moderate to severe left-sided neural foraminal narrowing. There is a degree of compression seen upon the exiting left L2 nerve root. Moderate to severe central canal narrowing is seen at this level, as on series 7, image 18. These imaging findings have progressed compared to the prior study. L3-L4: At least moderate loss of disc height and disc signal can be seen. Reactive marrow endplate changes are seen, which are hyperintense on T1-weighted and T2- weighted imaging and most consistent with fatty metaplasia (Modic type II changes). Moderate generalized disc osteophyte complex is seen. There is a superimposed central disc osteophyte protrusion. Moderate facet joint hypertrophy is seen. There is moderate left-sided and at least moderate right-sided neural foraminal narrowing. There is a degree of compression seen upon the exiting right L3 nerve root. Moderate central canal narrowing is seen. These imaging findings have progressed compared to the prior study. L4-L5: There is at least moderate loss of disc height and disc signal. Reactive marrow endplate changes are seen, which demonstrate mixed T1 weighted and T2-weighted signal, and are attributed to a combination of edema and fatty metaplasia (Modic type I and Modic type II changes). At least moderate disc bulge is seen, which is eccentric to the right. At least moderate facet hypertrophy is seen. Moderate to severe bilateral neural foraminal narrowing can be seen, right worse than left. At least moderate central canal narrowing is seen at this level. These imaging findings have mildly progressed compared to the prior study. L5-S1: Moderate loss of disc height is seen. Loss of disc signal is seen. Reactive marrow endplate changes are seen, which demonstrate mixed T1 weighted and T2- weighted signal, and are attributed to a combination of edema and fatty metaplasia (Modic type I and Modic type II changes). Moderate generalized disc bulge is seen. There is a superimposed central disc protrusion. Moderate facet joint hypertrophy is seen. There is moderate to severe bilateral neural foraminal narrowing seen, with an associated degree of compression seen upon the exiting nerve roots. Moderate central canal narrowing is seen. These imaging findings have progressed compared to the prior study. IMPRESSION: Multiple levels of significant lumbar spine degenerative change can be seen, with multiple levels of progression of degenerative change compared to the 2020 prior. Several sites of significant neural foraminal narrowing can be seen, with associated exiting nerve root compression. Moderate to severe central canal narrowing is seen at L2-L3, with moderate central canal narrowing at L3-L4, at least moderate central canal narrowing at L4-L5, and moderate central canal narrowing at L5-S1. Dictated by: Tomasz Patel M.D. on 09/28/2024 at 17:38 Approved by: Tomasz Patel M.D. on 09/28/2024 at 17:47
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
[2024-09-28] MEDS: ONDANSETRON 4 MG/2 ML INJ IV (16:33)
[2024-09-28] MEDS: HYDROMORPHONE 1 MG INJ IV ×4 (16:34→22:26)
[2024-09-28 16:38] LABS: Add Manual Diff / Slide Review NO; Hematocrit 38.4 % (41-53); Hemoglobin 13.0 g/dL (13.5-17.5); Lymphocytes Absolute Auto 2700 /uL (1100-4500); Mean Corpuscular HGB Conc 33.8 % (30-36); Mean Corpuscular Hemoglobin 30.8 PG (26-34); Mean Corpuscular Volume 91.2 fL (80-100); Platelet Count 235 X10^3/uL (150-400)
[2024-09-28 16:51] LABS: Alanine Aminotransferase 22 IU/L (<50); Albumin 4.2 g/dL (3.5-5.0); Albumin Globulin Ratio 1.4 (1.0-2.8); Alkaline Phosphatase 63 U/L (38-126); Blood Urea Nitrogen 20 mg/dL (9-20); Calcium 8.7 mg/dL (8.4-10.2); Carbon Dioxide 24 mmol/L (22-32); Chloride 106 mmol/L (98-107); Estimated Glomerular Filt Rate > 60 mL/min (>60); Globulin 3.0 g/dL (1.7-4.1); Glucose 94 mg/dL (70-99); HEMOLYSIS < 15 (0-50); Potassium 4.4 mmol/L (3.4-5.1); Sodium 137 mmol/L (137-145); Total Protein 7.2 g/dL (6.3-8.2)
== END 2024-09-28 22:35 | disposition short-term general hospital (02) ==
PROVIDERS: Emergency Medicine; Emergency Provider Family Medicine; Family Provider Family Medicine; PCP Family Medicine
DX: M48.061 Spinal stenosis, lumbar region without neurogenic claudication (principal)
CPT/HCPCS: 36415; 72148; 80053; 85025; 96374; 96375; 96376; 99284; 99285; J1171; J2405

== ENCOUNTER 2024-11-06 19:54 | Emergency (ER) | payer OTHER, SELFPAY ==
[2024-10-20 11:20] VITALS: BMI 27.3
[2024-11-06 20:14] VITALS: BP 137/81; PULSE 104; RESP 20; TEMP 36.7; O2SAT 97; BMI 27.8
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
[2024-11-07] MEDS: KETOROLAC 30 MG/ML VIAL IM (01:57)
[2024-11-07] MEDS: GABAPENTIN 600 MG TABLET PO (01:59)
== END 2024-11-07 02:32 | disposition home or self-care (01) ==
PROVIDERS: Emergency Provider Emergency Medicine; Family Provider Family Medicine; PCP Family Medicine
DX: M54.50 Low back pain, unspecified (principal); M54.2 Cervicalgia; G89.29 Other chronic pain; Z79.891 Long term (current) use of opiate analgesic
CPT/HCPCS: 96372; 99283; J1885

== ENCOUNTER 2024-11-16 13:03 | Emergency (ER) | payer OTHER, SELFPAY ==
[2024-10-20 11:20] VITALS: BMI 27.3
[2024-11-16 13:12] VITALS: BP 112/76; PULSE 104; RESP 16; TEMP 36.3; O2SAT 98; BMI 27.3
--- NOTE | 2024-11-16 13:25 | DI.RAD.S_ITS ---
PROCEDURE: XR RIBS LT MIN 3V W CXR1V INDICATIONS: fall down 3 steps TECHNIQUE: 2 views of the ribs were acquired, along with a single view chest. COMPARISON: None. FINDINGS: Surgical changes and devices: None. Bones and chest wall: No fractures or dislocations. No suspicious bony lesions. Overlying soft tissues appear unremarkable. Lungs and pleura: No pleural effusions or pneumothorax. Lungs appear clear. Mediastinum: Mediastinal contours appear normal. Heart size is normal. IMPRESSION: No displaced rib fracture or pneumothorax. Dictated by: Milton Nesbitt M.D. on 11/16/2024 at 14:24 Approved by: Milton Nesbitt M.D. on 11/16/2024 at 14:30
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
[2024-11-16] MEDS: MORPHINE 4 MG/ML INJ IM (14:16)
[2024-11-16 15:22] VITALS: BP 136/88; PULSE 92; RESP 16; O2SAT 99
== END 2024-11-16 15:23 | disposition home or self-care (01) ==
PROVIDERS: Emergency Provider Physician Assistant; Family Provider Family Medicine; PCP Family Medicine
DX: S16.1XXA Strain of muscle, fascia and tendon at neck level, initial encounter (principal); S29.8XXA Other specified injuries of thorax, initial encounter; W01.0XXA Fall on same level from slipping, tripping and stumbling without subsequent striking against object, initial encounter
CPT/HCPCS: 71101; 96372; 99283; J1100; J2270

== ENCOUNTER 2024-11-23 12:49 | Emergency (ER) | payer OTHER, SELFPAY ==
[2024-10-20 11:20] VITALS: BMI 27.3
[2024-11-23 13:35] VITALS: BP 131/76; PULSE 97; RESP 16; TEMP 36.7; O2SAT 99; BMI 27.3
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
[2024-11-23] MEDS: MORPHINE 4 MG/ML INJ IM (14:48)
[2024-11-23 15:24] VITALS: BP 125/70; PULSE 88; RESP 15; O2SAT 98
== END 2024-11-23 15:23 | disposition home or self-care (01) ==
PROVIDERS: Emergency Provider Physician Assistant; Family Provider Family Medicine; PCP Family Medicine
DX: M54.2 Cervicalgia (principal)
CPT/HCPCS: 96372; 99283; J1100; J2272

== ENCOUNTER 2024-12-02 17:39 | Emergency (ER) | payer OTHER, SELFPAY ==
[2024-10-20 11:20] VITALS: BMI 27.3
[2024-12-02 17:55] VITALS: BP 128/74; PULSE 108; RESP 14; TEMP 36.1; O2SAT 94; BMI 28.8
--- NOTE | 2024-12-02 18:31 | PC.NURSE ---
pt triage was performed by this rn - charted in error under another login - rn aware
[2024-12-02] MEDS: MORPHINE 4 MG/ML INJ IM (20:19)
[2024-12-02 20:22] VITALS: BP 129/80; PULSE 90; O2SAT 94
[2024-12-02 20:30] VITALS: BP 130/81; PULSE 89; O2SAT 94
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
[2024-12-02 21:00] VITALS: PULSE 86; O2SAT 98
[2024-12-02 21:30] VITALS: O2SAT 93
[2024-12-02 21:31] VITALS: BP 171/101; PULSE 83; O2SAT 95
== END 2024-12-02 23:58 | disposition home or self-care (01) ==
PROVIDERS: Emergency Provider Emergency Medicine; Family Provider Family Medicine; PCP Family Medicine
DX: G89.29 Other chronic pain (principal)
CPT/HCPCS: 96372; 99283; J1100; J2270

== ENCOUNTER 2024-12-07 12:29 | Emergency (ER) | payer OTHER, SELFPAY ==
[2024-10-20 11:20] VITALS: BMI 27.3
[2024-12-07 12:58] VITALS: BP 135/81; PULSE 95; RESP 15; TEMP 36.8; O2SAT 95; BMI 28.1
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
[2024-12-07] MEDS: KETOROLAC 30 MG/ML VIAL IM (13:41)
[2024-12-07] MEDS: MORPHINE 4 MG/ML INJ IM (13:41)
[2024-12-07 14:00] VITALS: BP 129/79; PULSE 90; RESP 16; O2SAT 98
== END 2024-12-07 14:00 | disposition home or self-care (01) ==
PROVIDERS: Emergency Provider Physician Assistant Medical; Family Provider Family Medicine; PCP Family Medicine
DX: G89.29 Other chronic pain (principal)
CPT/HCPCS: 96372; 99283; J1100; J1885; J2272

== ENCOUNTER 2024-12-13 02:31 | Emergency (ER) | payer OTHER, SELFPAY ==
[2024-10-20 11:20] VITALS: BMI 27.3
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
--- NOTE | 2024-12-13 02:59 | DI.CT.S_ITS ---
PROCEDURE: CT HEAD/BRAIN WO CON INDICATIONS: fall, acute on chronic back pain, shani neck, sx scheduled TECHNIQUE: Noncontrast 4.5 mm thick angled axial sections acquired from the foramen magnum to the vertex, with coronal and sagittal reformats. For radiation dose reduction, the following was used: automated exposure control, adjustment of mA and/or kV according to patient size. COMPARISON: [facility], CT, CT HEAD/BRAIN WO CON, 03/28/2021, 9:22. FINDINGS: Image quality: Diagnostic. CSF spaces: Basal cisterns are patent. No extra-axial fluid collections. The ventricles are symmetric in size and shape. Brain: No intracranial bleeds or mass effect. There is cerebral volume loss, with resultant ventricular and sulcal prominence. There are periventricular and deep white matter chronic small vessel ischemic changes. There is intracranial internal carotid artery atherosclerosis. Skull and face: Calvarium and visualized facial bones appear intact, without suspicious lesions. Sinuses: Visualized sinuses and mastoids are clear. IMPRESSION: No evidence acute intracranial process. Comment: Final report is concordant with preliminary interpretation provided by [facility]. Dictated by: Inocencio Elliott M.D. on 12/13/2024 at 7:19 Approved by: Inocencio Elliott M.D. on 12/13/2024 at 7:20
--- NOTE | 2024-12-13 02:59 | DI.CT.S_ITS ---
PROCEDURE: CT LUMBAR SPINE WO CON INDICATIONS: fall, acute on chronic back pain, shani neck, sx scheduled TECHNIQUE: Noncontrast 3 mm thick sections acquired from the T12 level to the sacrum. Sagittal and coronal reformats were constructed. For radiation dose reduction, the following was used: automated exposure control. COMPARISON: [facility], CT, CT LUMBAR SPINE WO CON, 03/28/2021, 9:22. FINDINGS: Image quality: Excellent. Bones: Diffuse degenerative change with a advanced multilevel disc height loss and trace retrolisthesis of L2 on L3 and L3 on L4. No acute vertebral body compression fractures. There is a degree of canal stenosis L1-L2, L2-L3, L3-L4, and L4-L5. No suspicious lytic or blastic bony lesions. No pars defects. Soft tissues: No retroperitoneal masses or hematomas. Visualized aorta is normal in caliber. IMPRESSION: 1. No acute compression fractures. 2. Diffuse spondylitic change with multilevel canal stenosis. Comment: Final report is concordant with preliminary interpretation provided by [facility]. Dictated by: Inocencio Elliott M.D. on 12/13/2024 at 7:16 Approved by: Inocencio Elliott M.D. on 12/13/2024 at 7:19
--- NOTE | 2024-12-13 02:59 | DI.CT.S_ITS ---
PROCEDURE: CT CERVICAL SPINE WO CON INDICATIONS: fall, acute on chronic back pain, shani neck, sx scheduled TECHNIQUE: Noncontrast 3 mm thick sections acquired from the skull base to the T4 level. Sagittal and coronal reformats were then constructed. For radiation dose reduction, the following was used: automated exposure control, adjustment of mA and/or kV according to patient size. COMPARISON: [facility], CT, CT CERVICAL SPINE WO CON, 03/28/2021, 9:22. FINDINGS: Image quality: Excellent. Bones: No acute fractures or dislocations there is a possible chronic right C3 posterior element fracture, unchanged from the previous study from 2021. Reference previous sagittal image 29 of series 6 and current sagittal image 36 of series 6. Diffuse spondylitic change. Findings include canal stenosis at C6-C7 as well as multilevel bony foraminal narrowing. . Visualized superior ribs are intact. Soft tissues: Prevertebral soft tissues are normal in thickness. No paravertebral hematomas. No apical pneumothoraces. IMPRESSION: No acute displaced fracture or traumatic subluxation. Diffuse cervical spondylitic change, canal stenosis and multilevel foraminal stenosis, question old C3 posterior element fracture. Comment: Final report is concordant with preliminary interpretation provided by [facility]. Dictated by: Inocencio Elliott M.D. on 12/13/2024 at 7:20 Approved by: Inocencio Elliott M.D. on 12/13/2024 at 7:25
[2024-12-13 03:01] VITALS: BP 152/94; PULSE 89; RESP 16; TEMP 36.8; O2SAT 99; BMI 28.1
[2024-12-13 03:51] VITALS: PULSE 82; O2SAT 92
[2024-12-13 04:00] VITALS: PULSE 101; O2SAT 94
[2024-12-13] MEDS: MORPHINE 4 MG/ML INJ IM (04:08)
[2024-12-13 04:30] VITALS: BP 121/79; PULSE 86; O2SAT 97
[2024-12-13] MEDS: KETOROLAC 30 MG/ML VIAL IM (04:48)
== END 2024-12-13 05:03 | disposition home or self-care (01) ==
PROVIDERS: Emergency Provider Emergency Medicine; Family Provider Family Medicine; PCP Family Medicine
DX: M54.2 Cervicalgia (principal); M54.50 Low back pain, unspecified; W10.9XXA Fall (on) (from) unspecified stairs and steps, initial encounter
CPT/HCPCS: 70450; 72125; 72131; 96372; 99283; 99284; J1100; J1885; J2272

== ENCOUNTER 2025-01-15 11:55 | Emergency (ER) | payer OTHER, SELFPAY ==
[2024-10-20 11:20] VITALS: BMI 27.3
[2025-01-15 12:08] VITALS: BP 126/80; PULSE 95; RESP 17; TEMP 36.4; O2SAT 99; BMI 28.8
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
--- NOTE | 2025-01-15 12:19 | DI.CT.S_ITS ---
PROCEDURE: CT ANGIO HEAD AND NECK INDICATIONS: Dizzy/headache TECHNIQUE: After the administration of intravenous contrast, 1 mm thick sections acquired from the aortic arch through the [place] of [place]. 3-dimensional qrtobgo-jkpimrdfc-hywicebdnx (MIP) and/or volume rendering reformats were acquired of the central intracranial vasculature and neck separately. For radiation dose reduction, the following was used: automated exposure control, adjustment of mA and/or kV according to patient size. COMPARISON: [facility], CT, CT CERVICAL SPINE WO [facility], 12/13/2024, 3:07. FINDINGS: Image quality: Diagnostic. Cerebral CT Angiogram: Internal carotid arteries: No acute findings. Intracranial ICA are patent with no significant stenosis. No occlusion. No aneurysm. Anterior cerebral arteries: Unremarkable. No significant stenosis. No occlusion. No aneurysm. Middle cerebral arteries: Unremarkable. No significant stenosis. No occlusion. No aneurysm. Posterior cerebral arteries: Unremarkable. No significant stenosis. No occlusion. No aneurysm. Basilar artery: Unremarkable. No significant stenosis. No occlusion. No aneurysm. Vertebral arteries: Unremarkable as visualized. Dural venous sinuses: Unremarkable given phase of enhancement. Other: Arterial phase appearance of the brain parenchyma is unremarkable. Neck CT Angiogram: Internal carotid arteries: Unremarkable. No significant stenosis. No dissection or occlusion. Common carotid arteries: Unremarkable. No significant stenosis. No dissection or occlusion. External carotid arteries: Unremarkable. No occlusion. Vertebral arteries: Unremarkable. No significant stenosis. No dissection or occlusion. Aortic Arch and Mediastinum: Partially visualized aortic arch unremarkable without evidence of aneurysm. Origins of the great vessels unremarkable. Other: Arterial phase soft tissues of the neck and chest are unremarkable. Patient is status post interval ACDF at C4-5 level. Degenerative disc disease throughout rest of the cervical spine is seen. IMPRESSION: 1. No significant intracranial arterial abnormality is seen. 2. No significant abnormality is seen within the arteries of the neck. 3. Post ACDF changes at C4-5 level. No evidence of hardware loosening or failure. Any quantitative measurements of stenosis were performed using NASCET criteria. Dictated by: Haja Reid M.D. on 01/15/2025 at 13:55 Approved by: Haja Reid M.D. on 01/15/2025 at 14:00
--- NOTE | 2025-01-15 12:19 | DI.CT.S_ITS ---
PROCEDURE: CT HEAD/BRAIN WO CON INDICATIONS: Dizzy/headache TECHNIQUE: Noncontrast 4.5 mm thick angled axial sections acquired from the foramen magnum to the vertex, with coronal and sagittal reformats. For radiation dose reduction, the following was used: automated exposure control, adjustment of mA and/or kV according to patient size. COMPARISON: [facility], CT, CT HEAD/BRAIN WO CON, 12/13/2024, 3:07. FINDINGS: Image quality: Diagnostic. CSF spaces: Basal cisterns are patent. No extra-axial fluid collections. The ventricles are symmetric in size and shape. Brain: No intracranial bleeds or mass effect. There is cerebral volume loss, with resultant ventricular and sulcal prominence. There are periventricular and deep white matter chronic small vessel ischemic changes. There is intracranial internal carotid artery atherosclerosis. Skull and face: Calvarium and visualized facial bones appear intact, without suspicious lesions. Sinuses: Visualized sinuses and mastoids are clear. IMPRESSION: No acute intracranial pathology. Dictated by: Haja Reid M.D. on 01/15/2025 at 13:39 Approved by: Haja Reid M.D. on 01/15/2025 at 13:39
[2025-01-15] MEDS: MORPHINE 4 MG/ML INJ IV (12:31)
[2025-01-15] MEDS: ONDANSETRON 4 MG/2 ML INJ IV (12:35)
[2025-01-15 12:44] LABS: Add Manual Diff / Slide Review NO; Hematocrit 38.4 % (41-53); Hemoglobin 13.2 g/dL (13.5-17.5); Lymphocytes Absolute Auto 2200 /uL (1100-4500); Mean Corpuscular HGB Conc 34.3 % (30-36); Mean Corpuscular Hemoglobin 30.5 PG (26-34); Mean Corpuscular Volume 88.8 fL (80-100); Platelet Count 329 X10^3/uL (150-400)
[2025-01-15 13:04] LABS: Alanine Aminotransferase 20 IU/L (<50); Albumin 4.3 g/dL (3.5-5.0); Albumin Globulin Ratio 1.3 (1.0-2.8); Alkaline Phosphatase 87 U/L (38-126); Blood Urea Nitrogen 17 mg/dL (9-20); Calcium 8.9 mg/dL (8.4-10.2); Carbon Dioxide 26 mmol/L (22-32); Chloride 104 mmol/L (98-107); Estimated Glomerular Filt Rate > 60 mL/min (>60); Globulin 3.2 g/dL (1.7-4.1); Glucose 90 mg/dL (70-99); HEMOLYSIS < 15 (0-50); Potassium 3.9 mmol/L (3.4-5.1); Sodium 138 mmol/L (137-145); Total Protein 7.5 g/dL (6.3-8.2)
[2025-01-15] MEDS: MECLIZINE HCL 12.5 MG TABLET 50 MG PO (13:08)
[2025-01-15] MEDS: SODIUM CHLORIDE 0.9% 1,000 ML 1000 ML IV (13:08)
--- NOTE | 2025-01-15 13:28 | EKG_ITS ---
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
[2025-01-15] MEDS: KETOROLAC 30 MG/ML VIAL 15 MG IV (15:32)
[2025-01-15] MEDS: BACLOFEN 10 MG TABLET PO (15:36)
[2025-01-15 15:52] VITALS: BP 138/85; PULSE 85; RESP 18; O2SAT 94
== END 2025-01-15 16:23 | disposition home or self-care (01) ==
PROVIDERS: Emergency Provider Emergency Medicine; Family Provider Family Medicine; PCP Family Medicine
DX: G44.209 Tension-type headache, unspecified, not intractable (principal); M62.838 Other muscle spasm; M54.2 Cervicalgia; R42 Dizziness and giddiness
CPT/HCPCS: 36415; 70450; 70496; 70498; 80053; 85025; 93005; 93010; 96361; 96374; 96375; 99284; J1885; J2272; J2405; J3360; J7030; Q9967

== ENCOUNTER 2025-01-19 14:41 | Inpatient (IN) | payer OTHER, SELFPAY ==
[2024-10-20 11:20] VITALS: BMI 27.3
[2025-01-19] VITALS (20 sets, daily range): BP systolic 109–138; BP diastolic 73–94; PULSE 67–89; RESP 18; TEMP 37.1; O2SAT 94–99; BMI 29.6
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
--- NOTE | 2025-01-19 15:02 | DI.MRI.S_ITS ---
PROCEDURE: MR CERVICAL SPINE WO/W CON INDICATIONS: recent surgery, worsening mental status, TECHNIQUE: Noncontrast sagittal T1 spin echo and T2 fast spin echo, sagittal STIR, foraminal oblique sagittal T2 fast spin echo, axial gradient echo or T2 fast spin echo through the cervical spine. After the administration of contrast, axial and sagittal T1 spin echo with fat saturation through the cervical spine. COMPARISON: [facility], MR, MR CERVICAL SPINE WO CON, 09/20/2024, 8:26. [facility], CT, CT ANGIO HEAD AND NECK, 01/19/2025, 15:36. FINDINGS: Image quality: This examination is significantly limited by involuntary motion artifact. Alignment and curvature: There is normal bony alignment. Marrow: Marrow is normal in overall signal, without suspicious enhancement. Spinal cord: Visualized spinal cord has normal size and signal. No cerebellar tonsillar herniation. No abnormal intramedullary enhancement. Paraspinous soft tissues: No paravertebral masses or suspicious enhancement. No rosita abnormal enhancement can be seen of the disc levels. Anterior fixation hardware can be seen at the C4-C5 level. Multiple levels of degenerative change can be seen. There is moderate to severe central canal narrowing seen at the C4-C5 level. Disc osteophyte protrusions can be seen at C5-C6 and C6-C7. IMPRESSION: No imaging explanation is found for this patient's presenting symptoms. This study is highly limited by motion artifact. Anterior fixation hardware can be seen at the C4-C5 level, without complication observed by MRI. No abnormal enhancement is seen. No rosita findings of discitis, osteomyelitis, or epidural abscess can be seen. Dictated by: Tomasz Patel M.D. on 01/19/2025 at 18:00 Approved by: Tomasz Patel M.D. on 01/19/2025 at 18:03
--- NOTE | 2025-01-19 15:02 | DI.CT.S_ITS ---
PROCEDURE: CT ANGIO HEAD AND NECK INDICATIONS: altered mental status TECHNIQUE: After the administration of intravenous contrast, 1 mm thick sections acquired from the aortic arch through the [place] of [place]. 3-dimensional cbikeaj-qvegtzhzs-zdizckaxzm (MIP) and/or volume rendering reformats were acquired of the central intracranial vasculature and neck separately. For radiation dose reduction, the following was used: automated exposure control, adjustment of mA and/or kV according to patient size. COMPARISON: [facility], CT, CT HEAD/BRAIN WO CON, 01/19/2025, 15:36. [facility], CT, CT ANGIO HEAD AND NECK, 01/15/2025, 12:48. FINDINGS: Image quality: Diagnostic. Cerebral CT Angiogram: Internal carotid arteries: No acute findings. Intracranial ICA are patent with no significant stenosis. No occlusion. No aneurysm. Anterior cerebral arteries: Unremarkable. No significant stenosis. No occlusion. No aneurysm. Middle cerebral arteries: Unremarkable. No significant stenosis. No occlusion. No aneurysm. Posterior cerebral arteries: Unremarkable. No significant stenosis. No occlusion. No aneurysm. Basilar artery: Unremarkable. No significant stenosis. No occlusion. No aneurysm. Vertebral arteries: Unremarkable as visualized. Dural venous sinuses: Unremarkable given phase of enhancement. Other: Arterial phase appearance of the brain parenchyma is unremarkable. Neck CT Angiogram: Internal carotid arteries: Unremarkable. No significant stenosis. No dissection or occlusion. Common carotid arteries: Unremarkable. No significant stenosis. No dissection or occlusion. External carotid arteries: Unremarkable. No occlusion. Vertebral arteries: Unremarkable. No significant stenosis. No dissection or occlusion. Aortic Arch and Mediastinum: Partially visualized aortic arch unremarkable without evidence of aneurysm. Origins of the great vessels unremarkable. Other: Arterial phase soft tissues of the neck and chest are unremarkable. IMPRESSION: No significant intracranial arterial abnormality is seen. No significant abnormality is seen within the arteries of the neck. Any quantitative measurements of stenosis were performed using NASCET criteria. Dictated by: Adan Velazco M.D. on 01/19/2025 at 16:42 Approved by: Adan Velazco M.D. on 01/19/2025 at 16:43
--- NOTE | 2025-01-19 15:03 | DI.CT.S_ITS ---
PROCEDURE: CT HEAD/BRAIN WO CON INDICATIONS: acute altered mental status TECHNIQUE: Noncontrast 4.5 mm thick angled axial sections acquired from the foramen magnum to the vertex, with coronal and sagittal reformats. For radiation dose reduction, the following was used: automated exposure control, adjustment of mA and/or kV according to patient size. COMPARISON: [facility], CT, CT HEAD/BRAIN WO CON, 01/15/2025, 12:48. [facility], CT, CT HEAD/BRAIN WO CON, 12/13/2024, 3:07. FINDINGS: Image quality: Diagnostic. CSF spaces: Basal cisterns are patent. No extra-axial fluid collections. Ventricles are normal in size and shape. Brain: No midline shift. No intracranial mass effect or hemorrhage. De La Torre- white matter interface is normal. Skull and face: Calvarium and visualized facial bones are intact, without suspicious lesions. Sinuses: Visualized sinuses and mastoids are clear. IMPRESSION: No acute intracranial pathology. Dictated by: Adan Velazco M.D. on 01/19/2025 at 16:11 Approved by: Adan Velazco M.D. on 01/19/2025 at 16:12
--- NOTE | 2025-01-19 15:05 | DI.RAD.S_ITS ---
PROCEDURE: XR HAND RT 2V INDICATIONS: hand pain TECHNIQUE: 2 views of the hand(s) acquired. COMPARISON: [facility], CR, XR HAND RT MIN 3V, 03/17/2022, 13:25. FINDINGS: Bones: No fractures or dislocations. Carpal bones are normally aligned. No suspicious bony lesions. Soft tissues: No suspicious soft tissue calcifications. IMPRESSION: No acute bony abnormality. Dictated by: Adan Velazco M.D. on 01/19/2025 at 16:46 Approved by: Adan Velazco M.D. on 01/19/2025 at 16:47
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
--- NOTE | 2025-01-19 15:07 | EKG_ITS ---
[facility] [address], [place] [address] Test Date: 2025-01-19 Pat Name: Carson Kumar Department: [facility] Room: Gender: Male [employer]: TRACY : 1965 Requested By: Order Number: [id number] Reading MD: Sergo Michelle MD Measurements Intervals [place] Rate: 75 P: -1 TX: 88 QRS: 1 QRSD: 84 T: 23 QT: 394 QTc: 439 Interpretive Statements Sinus rhythm with short TX Electronically Signed On 01-20-2025 9:28:11 PST by Sergo Michelle MD
--- NOTE | 2025-01-19 15:07 | DI.RAD.S_ITS ---
PROCEDURE: XR CHEST 1V INDICATIONS: altered mental status TECHNIQUE: One view of the chest was acquired. COMPARISON: [facility], , XR CHEST 2V, 03/02/2018, 15:54. [facility], , CHEST 2 VIEW, 06/06/2015, 18:55. FINDINGS: Surgical changes and devices: None. Lungs and pleura: Lungs are clear considering reduced inspiratory volume. No pleural effusions or pneumothorax. Mediastinum: Mediastinal contours appear normal. Heart size is normal. Bones and chest wall: No suspicious bony lesions. Overlying soft tissues appear unremarkable on the right and the angular radiodensities without metallic fragments associated are again seen superimposed on the left axilla as also seen on the left shoulder plain films same day. IMPRESSION: Reduced inspiratory volume, no definite pneumonia found. As previously noted earlier today on left shoulder plain films unusual angular focal radiodensities are superimposed on the left axilla and warrant close clinical correlation. Dictated by: Adan Velazco M.D. on 01/19/2025 at 16:47 Approved by: Adan Velazco M.D. on 01/19/2025 at 16:49
--- NOTE | 2025-01-19 17:30 | PC.NURSE ---
MR lui requested pt be medicated prior to imaging. Upon assessment, pt was found unable to lower bilateral arms into relaxed, neutral position. Pt is AOx4 and following commands appropriately. Pt reports being unable to lower arms despite acknowledging request. This RN made an attempt to aid pt in lowering arms and encountered significant stiffness and resistance. MD was called and evaluation was requested. MD was unavailable at the time. Alternatively, pt received a neuro assessment by this RN & YVONNE Schaefer. Pt's pupils are equal and reactive. Pt endorses worsening tingling and numbness to lower extremities. Pt is able to feel touch to R legs but denies feeling to sharp sensation below the knee on L leg. Pt's bilateral hands are tightly closed into fists and pt's arms are raised, slightly bent and drawn towards pt's torso. This RN to accompany pt to MR for 1:1 monitoring.
--- NOTE | 2025-01-19 19:28 | PC.NURSE ---
Pt is AOx4 w/slightly slow appropriate coherent speech. Pt continues to report diminished sensation to bilateral lower extremities. Pt denies ability to feel sharp touches to L leg below the knee. Pt reports feeling pressure on L thigh. Pt is able to feel R leg, endorsing tingling sensations. Strong regular bilateral pedal pulses palpated. Cap refill < 2secs. CMS + w/both feet feeling warm and pink. Pt was given a neuro check, pupils remain equal and reactive. Pt's arm posturing has improved with time and pt is now able to partially lower bilateral arms. Pt still unable to fully extend arms into a relaxed resting position on the bed.
[2025-01-19 20:50] LABS: Add Manual Diff / Slide Review NO; Hematocrit 36.1 % (41-53); Hemoglobin 12.1 g/dL (13.5-17.5); Lymphocytes Absolute Auto 1600 /uL (1100-4500); Mean Corpuscular HGB Conc 33.6 % (30-36); Mean Corpuscular Hemoglobin 29.9 PG (26-34); Mean Corpuscular Volume 89.1 fL (80-100); Platelet Count 277 X10^3/uL (150-400)
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
[2025-01-19 21:02] LABS: Lactate (Lactic Acid) 0.7 mmol/L (0.7-2.1)
[2025-01-19 21:03] LABS: Alanine Aminotransferase 19 IU/L (<50); Albumin 3.9 g/dL (3.5-5.0); Albumin Globulin Ratio 1.4 (1.0-2.8); Alkaline Phosphatase 74 U/L (38-126); Blood Urea Nitrogen 10 mg/dL (9-20); Calcium 8.6 mg/dL (8.4-10.2); Carbon Dioxide 29 mmol/L (22-32); Chloride 106 mmol/L (98-107); Estimated Glomerular Filt Rate > 60 mL/min (>60); Globulin 2.8 g/dL (1.7-4.1); Glucose 97 mg/dL (70-99); HEMOLYSIS < 15 (0-50); Potassium 4.0 mmol/L (3.4-5.1); Sodium 141 mmol/L (137-145); Total Protein 6.7 g/dL (6.3-8.2)
[2025-01-19 21:15] LABS: NT-proBNP (BNP-Adult 18+) 41 pg/mL (<125); Troponin I < 0.012 ng/mL (0.01-0.034)
--- NOTE | 2025-01-19 23:15 | PC.NURSE ---
Patient placed in a hospital bed and given turkey sandwiches upon request.
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
[2025-01-20 05:32] VITALS: BP 132/88; PULSE 78; O2SAT 97
--- NOTE | 2025-01-20 06:29 | DI.MRI.S_ITS ---
PROCEDURE: MR HEAD/BRAIN WO/W CON INDICATIONS: Altered mental status TECHNIQUE: Noncontrast axial T1 spin echo, axial T2 fast spin echo, sagittal and axial FLAIR, coronal T2 fast spin echo, axial gradient echo, axial diffusion and ADC through the brain. After the administration of contrast, axial and coronal and sagittal 3D VIBE or T1 spin echo with fat saturation through the brain. COMPARISON: None. FINDINGS: Image quality: Mildly suboptimal evaluation due to motion artifact on the contrast-enhanced sequences. CSF Spaces: Basal cisterns are patent. No extra-axial fluid collections. Ventricles are normal in size and shape. Brain: No midline shift. No intracranial bleeds or masses. No abnormal intracranial enhancement. The brainstem appears normal. Diffusion-weighted images demonstrate no acute infarct. No chronic ischemic insults. Normal intravascular flow voids are present. Skull and face: Calvarial marrow is normal in signal. Orbits appear normal. Sinuses: Sinuses and mastoids appear clear. IMPRESSION: No acute abnormality. Dictated by: Luke Allen M.D. on 01/20/2025 at 8:43 Approved by: Luke Allen M.D. on 01/20/2025 at 8:44
[2025-01-20 11:00] VITALS: BP 118/80; PULSE 72; RESP 20; O2SAT 97
[2025-01-20 11:20] VITALS: BP 128/92; PULSE 66; RESP 18; TEMP 36.6; O2SAT 96
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
[2025-01-20 12:33] VITALS: BMI 29.6
[2025-01-20] MEDS: MELOXICAM 7.5 MG TABLET 15 MG PO ×2 (15:53→20:48)
[2025-01-20 20:42] VITALS: BP 116/82; PULSE 86; RESP 18; TEMP 36.3; O2SAT 96
[2025-01-20] MEDS: GABAPENTIN 600 MG TABLET PO (20:47)
[2025-01-20] MEDS: DOCUSATE 100 MG CAPSULE PO (20:48)
[2025-01-20] MEDS: HEPARIN 5,000 UNIT/ML VIAL 5000 UNIT SUBCUT (20:48)
[2025-01-21 05:40] LABS: Blood Urea Nitrogen 18 mg/dL (9-20); Calcium 8.7 mg/dL (8.4-10.2); Carbon Dioxide 27 mmol/L (22-32); Chloride 106 mmol/L (98-107); Estimated Glomerular Filt Rate > 60 mL/min (>60); Glucose 98 mg/dL (70-99); HEMOLYSIS < 15 (0-50); Potassium 4.1 mmol/L (3.4-5.1); Sodium 137 mmol/L (137-145)
[2025-01-21 05:43] LABS: Add Manual Diff / Slide Review NO; Hematocrit 34.8 % (41-53); Hemoglobin 11.8 g/dL (13.5-17.5); Lymphocytes Absolute Auto 1600 /uL (1100-4500); Mean Corpuscular HGB Conc 34.0 % (30-36); Mean Corpuscular Hemoglobin 30.0 PG (26-34); Mean Corpuscular Volume 88.4 fL (80-100); Platelet Count 254 X10^3/uL (150-400)
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
[2025-01-21 08:00] VITALS: BP 105/71; PULSE 75; RESP 14; TEMP 36.7; O2SAT 94
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
[2025-01-21] MEDS: ACETAMINOPHEN 325 MG TABLET 650 MG PO (09:45)
[2025-01-21] MEDS: GABAPENTIN 600 MG TABLET PO (09:46)
[2025-01-21] MEDS: MELOXICAM 7.5 MG TABLET 15 MG PO ×3 (09:47→20:27)
[2025-01-21] MEDS: DOCUSATE 100 MG CAPSULE PO ×2 (09:54→20:27)
[2025-01-21] MEDS: SODIUM CHLORIDE 0.9% FLUSH 10 ML IV ×2 (10:09→20:28)
[2025-01-21] MEDS: HEPARIN 5,000 UNIT/ML VIAL 5000 UNIT SUBCUT ×2 (10:09→20:26)
[2025-01-21] MEDS: GABAPENTIN 300 MG CAPSULE PO ×2 (11:57→20:27)
--- NOTE | 2025-01-21 13:01 | CM.DANOTE ---
Addendum entered by JACKSON Wade 01/21/25 15:29: ADD: Per [facility], currently at capacity with pt's insurance. Sent referral to [facility] to review to see if they can accept. BF Original Note: Patient is a 59 yo male who was admitted OBS Status on 01/20/25 for GLF/Cervical surgery post op. Pt has [employer] for insurance and his PCP is Dr. Kailyn Cortez at . EMR was reviewed. Per , pt with recent cervical surgery in November at [facility] and has had multiple recent GLFs since discharging home and admitted for pain management and to work with PT/OT. Per PT, pt needing assist with ambulation with FWW and currently recommending SNF before safe return home. OT ordered and pending. 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 Pt has not needed DME for ambulation until his recent cervical surgery and states he feels he has become somewhat deconditioned since the surgery and unsteady and has two large dogs (175 lbs each) and has had to figure out how not to be jumped on by them. Pt denies any hx of HH or SNF and explained both options and the barriers being his [employer] insurance and need to determine who is contracted with his insurance and if his insurance will even auth SNF. Provided the SNF and HH Choice list to review. Pt states if SNF approved by insurance and [facility] is contracted he would be agreeable. Pt also feels if he has to discharge home his roommate is supportive and HH would be beneficial and no preference between [facility] or [facility] (the two that cover [facility]). REGI made SNF referrals to [facility], [facility], [facility], [facility], [facility] to first determine which are contracted with [facility] and if any willing to submit for auth. REGI made referral to [facility] as currently per insurance list they are contracted with [facility] as pt likely might have to discharge home at d/c. Discussed bedside with pt his current OBS Status as he was inquiring if he could just stay in the hospital a few days and updated him on up to 48 hours under Observation so pt aware he might need to discharge tomorrow Wednesday pending discharge plan and needs. Plan: SW to follow closely in the AM with HH vs SNF pending insurance coverage and progress with PT. JACKSON Wade Discharge Planning/Care Management CM Discharge Assessment Start: 01/20/25 10:51 Freq: Status: Active Protocol: Document 01/21/25 12:58 BF (Rec: 01/21/25 13:01 BF [id number]) Discharge Planning Assessment Assigned Discharge JACKSON Perez Fish And Wildlife Technician Provider Kailyn Cortez Insurance [employer] DPOA/Assigned none Designee Name Advance Directives? No Advance Directives No on File History Provided By Patient,Medical Record Has Patient been No admitted in last 30 days? Prior Living House Arrangements Household Members friend(s) Comment has a roommate Type of Drives own vehicle transporation used prior to admit Independent with ADL Yes 's Is patient alert and Yes oriented? Needs Assistance Home Chores / Shopping With Caregiver for No: but has two large dogs Another DME Already Rented / FWW / Walker Owned Patient/Family Nursing Home Facility,Home with Home Health Preference Comment SNF vs HH pending progress with PT Barriers to Yes Discharge Comment OBS status and [employer] for insurance Discharge Plan Home with Home Health Community Services Physical Therapy,Occupational Therapy Transportation Likely friend to transport Arrangement Referrals Initiated Nursing Home,Home Health Medicare Choice List Yes Provided Medicare choice list patient reviewed on electronic tablet with SNF/HH Preference [facility] if SNF, but open to HH also Has Agency SNF been Yes contacted Whiteboard Updated Yes in Patient Room with name and ext. # of Jr. Java Developer Review Status In Process Please Provide Date 01/21/25 Initial DC Assessment Was Performed Next Review Type Continued Stay Review
[2025-01-21 13:25] LABS: Acinetobacter calcoa-baumannii Not Detected (Not Detect); Bacteroides fragilis Not Detected (Not Detect); Candida auris Not Detected (Not Detect); Candida glabrata Not Detected (Not Detect); Cryptococcus neoformans/gatti Not Detected (Not Detect); Enterobacterales Not Detected (Not Detect); Enterococcus faecalis Not Detected (Not Detect); Enterococcus faecium Not Detected (Not Detect); Klebsiella aerogenes Not Detected (Not Detect); Proteus species Not Detected (Not Detect); Serratia marcescens Not Detected (Not Detect); Staphylococcus epidermidis Not Detected (Not Detect); Staphylococcus lugdunensis Not Detected (Not Detect); Staphylococcus species Not Detected (Not Detect); Stenotrophomonas maltophilia Not Detected (Not Detect); Streptococcus agalactiae (Gr B Not Detected (Not Detect); Streptococcus pneumonia Not Detected (Not Detect); Streptococcus pyogenes (Gr A) Not Detected (Not Detect); Streptococcus species Detected (Not Detect)
[2025-01-21 19:00] VITALS: BP 113/80; PULSE 75; RESP 95; TEMP 36.6; O2SAT 97
[2025-01-21] MEDS: LIDOCAINE 5% PATCH 2 EACH TOP (21:40)
[2025-01-22] MEDS: DOCUSATE 100 MG CAPSULE PO ×2 (09:26→21:30)
[2025-01-22] MEDS: HEPARIN 5,000 UNIT/ML VIAL 5000 UNIT SUBCUT ×2 (09:27→21:31)
[2025-01-22] MEDS: MELOXICAM 7.5 MG TABLET 15 MG PO ×2 (09:27→15:05)
[2025-01-22] MEDS: GABAPENTIN 300 MG CAPSULE PO ×3 (09:28→21:30)
[2025-01-22] MEDS: SODIUM CHLORIDE 0.9% FLUSH 10 ML IV ×2 (09:28→21:32)
--- NOTE | 2025-01-22 09:37 | PT.IPTN ---
Physical Therapy Treatment Note M2 PT-IP Current Condition Start: 01/21/25 09:00 Freq: NEEDED Status: Active Protocol: Document 01/22/25 09:18 SP (Rec: 01/22/25 10:56 SP Laptop) Physical Therapy Current Condition Current Condition Evaluation Date 01/21/25 Treatment Diagnosis Falls, unsteadiness, weakness Onset Date 01/20/25 M3 PT-IP Subjective Start: 01/21/25 09:00 Freq: NEEDED Status: Active Protocol: Document 01/22/25 09:18 SP (Rec: 01/22/25 10:56 SP Laptop) Subjective Physical Therapy Visit Type Type Treatment Note Visit Start Time 09:18 Visit Stop Time 09:37 Notes 19 min Number of CUSTOMS COMPLIANCE ANALYST Visits 1 Physical Therapy Visit Comments Patient Comments Pt agreeable to working with CUSTOMS COMPLIANCE ANALYST including stair mgt. Patient Goals get stronger at SNF for little while before going home, is still unsteady. Therapy Pain Assessment Pain When Pain Assessed During Mobility Pain Present Pain Present Pain Reported M4 PT-IP Mobility and Gait Start: 01/21/25 09:00 Freq: NEEDED Status: Active Protocol: Document 01/22/25 09:18 SP (Rec: 01/22/25 10:56 SP Laptop) PT-Transfer Assessment Sit to and From Stand Sit to and from Standby Assistance Stand Equipment Transfer Assistive Gait Belt,Front Wheeled Walker Device Orthotic/Prosthetic No Devices or Brace: Transfers Transfer Destination Chair,Wheelchair Transfer Technique pt ambulated with FWW Transfer Ability Level of Assist Standby Assistance,Contact Guard Assistance Comments Mobility Comments Pt was up in chair when arrived, STS from chair CGA. Gait with FWW to hallway w/c CGA/close SBA. wheeled down to stairs, complete 21 stairs L HR and SPC use low Min A initially then CGA for trunk balance stability, cues for slower pacing safety. Pt was able to walk back from stairs approx 150 ft with FWW, w/c follow, R knee unsteady locking into ext and little trunk sways but no LOB CGA/close SBA for safety. Pt returned to chair when arrived in room, nurse took over care. Gait Assessment Gait Gait Assistance Standby Assistance,Contact Guard Assist,1 Person Assist Required: Distance (Feet) 150 Able to Maintain Yes Weight Bearing Status During Gait Assistive Devices Assistive Device Gait Belt,Front Wheeled Walker Orthotic/Prosthetic No Devices or Brace: Gait Deviations General Gait Pattern Antalgic,Decreased Stride Length,Decreased Feet Clearance,Lateral Trunk Lean Factors Limiting Gait Function Factors Limiting Decreased Activity Tolerance,Decreased Strength,Poor Gait Function Balance,Poor Safety Awareness Comments Gait Comments cued little slower pacing, soft knee midstance time stability on R, noted little unsteady trunk but no LOB. Stair Climbing Assessment Evaluation Level of Assist On Contact Guard Assistance,Minimal Assistance,1 Person Stairs Assistance Devices Stair Climbing Straight Cane,Left Railing Assistive Devices Technique/Endurance Stair Climbing Ascend and Descend Direction Stair Climbing Step Over Step Technique Number of Steps 3 Climbed Stair Climbing Set # 7 Repetitions (reps) Comments Stair Climbing reciprocal stepping, little trunk sways, cued slower Comments pacing during pivot turn top/bottom step for safety stability. PT-Balance Assessment Sitting Balance and Reactions Static Sitting Normal Balance Ability Dynamic Sitting Good Balance Ability Standing Balance and Reactions Static Standing Good Balance Ability Dynamic Standing Fair Balance Ability Device Used FWW Comments Other Balance Tests/ little sway coming to standing but self recovery, Deviations/Treatment little trunk sways during gait in hallway, no LOB CGA/ : close SBA with w/c follow M5 PT-IP Objective Assessments Start: 01/21/25 09:00 Freq: NEEDED Status: Active Protocol: Document 01/21/25 08:31 DCW (Rec: 01/21/25 09:12 DCW [id number]) Orientation Orientation/Cognition Level of Alertness Alert Orientation Name,Birthday,Month,Date,Year,Place,Situation Language Function No Deficits Noted Ability Safety Awareness Understands Safety Issues Memory Description No Deficits Noted Gross Range of Motion Lower Extremity ROM Assessment Within Functional Limits Strength Lower Extremity Strength Assessment Bilaterally Impaired Hip 4-/5 Knee 4-/4 Ankle 4-/5 M7 PT-IP Assessment and Plan Start: 01/21/25 09:00 Freq: NEEDED Status: Active Protocol: Document 01/22/25 09:18 SP (Rec: 01/22/25 10:56 SP Laptop) PT Summary Assessment and Plan Potential Rehabilitation Good Potential Status of Condition Unstable at Evaluation Summary Impairments Strength,Balance,Coordination,Tone,Gait,Activity Tolerance Progress Towards Progressing Toward Goals,Slow Progress due to Activity Goals Tolerance Assessment Summary Pt continues present falls risk secondary to LE weakness and poor balance unsteay during gait, even with use of walker but no LOB CG/close SBA. Little unsteady during stair mgt trunk sway at top and bottom of stairs, able complete full 21 has at home but CG/Min A especially duringpivot turn unsteady body awarness. Pt has had multiple falls since cervical fusion. Pt would benefit from SNF for increased strength and balance activity progress to increase independence with FWW, and limit fall risk while recovering. Goals Gait Goal Independent Gait Distance 100 Other Goals Ascend/descend 12 steps SBA using R rail Days to Meet Goals 6 Frequency of Treatment Frequency Of Once a Day Treatment Treatment Plan Physical Therapy Gait Training,Therapeutic Exercise,Balance Retraining, Treatment Plan Neuromuscular Re-ed,Coordination Retraining Other LE strength exercises, balance activities, increase Recommendations and gait distance with LRAD. Pt would benefit from continue Next Treatment Focus gait with nursing. Recommendations To Nursing Amount of Assist Standby Assistance,1 Person Assist Needed Discharge Recommendations PT Discharge SNF Rehab Recommendations Transportation Needs Private Vehicle,Wheelchair/Cabulance at Discharge - PT assist 1
--- NOTE | 2025-01-22 10:49 | PC.NURSE ---
Patient worked with physical therapy and did well. He was able to do 21 stairs, as he has this many at home. Given medications and tolerated well. He has an incision to the anterior part of his neck that is healing well. He denies discomfort.
--- NOTE | 2025-01-22 12:06 | CM.DPC ---
Addendum entered by JACKSON Wade 01/22/25 14:44: ADD: Faxed initial referral to [facility] to review for [employer] coverage in case pt needs to d/c on current IV Vanco Q12 to determine if he has coverage if needed. SW to follow closely for final abx needs. BF Addendum entered by JACKSON Wade 01/22/25 14:29: ADD: Per MD, pt's blood cultures just came back positive so he has to stay for IV abx today and waiting for second round of blood cultures to determine po vs IV abx at d/c. SW to follow closely in AM. BF Original Note: DCP Discharge Home Per MD, pt medically stable to discharge home today and will work on completing discharge orders. SW followed up on the previously faxed SNFs: [facility]- not contracted [facility]- full [facility]- [facility]- left msg [facility]- pt declines going to SW followed up on previously faxed HH agencies: [facility]- at capacity with [facility]/Medicaid insurances [facility]- not contracted SW met bedside with pt after observing him ambulate independently with FWW around the unit and updated on above. Pt confirms he does not feel SNF needed and does not want to keep trying for [facility] or [facility]. Pt feels he is safe for home, was hopeful for HH but provided him with brochure for [facility] option for PT in the home and pt very interested in this option and will call once he gets home to see if they take his insurance or how much it would cost for private pay. Pt confirms he has transport to home for today. Updated MD and RN. Plan: Patient to d/c home today via friend POV and outpt vs [facility] for ongoing assist with ambulation/strengthening from cervical surgery last month. JACKSON Wade
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
[2025-01-22 14:00] VITALS: BP 124/58; PULSE 86; RESP 14; TEMP 36.6; O2SAT 96
[2025-01-22] MEDS: VANCOMYCIN 2,000 MG/400 ML PIGGYBACK 200 MG IV (14:10)
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
[2025-01-22 15:31] LABS: MRSA (Nasal) PCR NOT DETECTED (Not Detect)
[2025-01-22 19:00] VITALS: BP 125/87; PULSE 86; RESP 20; TEMP 36.9; O2SAT 95
[2025-01-23] MEDS: MAG HYDROX/ALUM/SIMETH 30 ML UDC PO (00:21)
[2025-01-23] MEDS: VANCOMYCIN 1,250 MG/250 ML PIGGYBACK 250 MG IV (00:22)
[2025-01-23] MEDS: BACLOFEN 10 MG TABLET 20 MG PO (05:02)
[2025-01-23 05:05] LABS: Add Manual Diff / Slide Review NO; Hematocrit 32.8 % (41-53); Hemoglobin 11.3 g/dL (13.5-17.5); Lymphocytes Absolute Auto 1600 /uL (1100-4500); Mean Corpuscular HGB Conc 34.5 % (30-36); Mean Corpuscular Hemoglobin 30.3 PG (26-34); Mean Corpuscular Volume 87.9 fL (80-100); Platelet Count 217 X10^3/uL (150-400)
[2025-01-23 05:13] LABS: Blood Urea Nitrogen 25 mg/dL (9-20); Calcium 8.7 mg/dL (8.4-10.2); Carbon Dioxide 25 mmol/L (22-32); Chloride 106 mmol/L (98-107); Estimated Glomerular Filt Rate > 60 mL/min (>60); Glucose 97 mg/dL (70-99); HEMOLYSIS < 15 (0-50); Potassium 4.3 mmol/L (3.4-5.1); Sodium 137 mmol/L (137-145)
[2025-01-23] MEDS: HEPARIN 5,000 UNIT/ML VIAL 5000 UNIT SUBCUT (08:20)
[2025-01-23] MEDS: DOCUSATE 100 MG CAPSULE PO (08:21)
[2025-01-23] MEDS: MELOXICAM 7.5 MG TABLET 15 MG PO (08:21)
[2025-01-23] MEDS: GABAPENTIN 300 MG CAPSULE PO (08:21)
[2025-01-23] MEDS: DICLOFENAC 1% GEL 100 GM 1 APPLIC TOP (08:22)
[2025-01-23] MEDS: SODIUM CHLORIDE 0.9% FLUSH 10 ML IV (08:22)
--- NOTE | 2025-01-23 09:27 | PT.IPTN ---
Physical Therapy Treatment Note M2 PT-IP Current Condition Start: 01/21/25 09:00 Freq: NEEDED Status: Active Protocol: Document 01/22/25 09:18 SP (Rec: 01/22/25 10:56 SP Laptop) Physical Therapy Current Condition Current Condition Evaluation Date 01/21/25 Treatment Diagnosis Falls, unsteadiness, weakness Onset Date 01/20/25 M3 PT-IP Subjective Start: 01/21/25 09:00 Freq: NEEDED Status: Active Protocol: Document 01/23/25 09:22 KJ (Rec: 01/23/25 09:27 KJ [id number]) Subjective Physical Therapy Visit Type Type Treatment Note Visit Start Time 08:51 Visit Stop Time 09:19 Physical Therapy Visit Comments Patient Comments Waiting to go home. Anxious to ambulate. Staff won't let him up without assistance. Patient Goals To go home. Therapy Pain Assessment Pain When Pain Assessed At Rest Pain Present Pain Present Denied Pain M4 PT-IP Mobility and Gait Start: 01/21/25 09:00 Freq: NEEDED Status: Active Protocol: Document 01/23/25 09:22 KJ (Rec: 01/23/25 09:27 KJ [id number]) Gait Assessment Gait Gait Assistance Contact Guard Assist Required: Distance (Feet) 300 Assistive Devices Assistive Device Gait Belt,Front Wheeled Walker Gait Deviations General Gait Pattern Narrow Based Gait Comments Gait Comments gait steady, no lob Stair Climbing Assessment Comments Stair Climbing Pt completed stairs yesterday without difficulty Comments PT-Balance Assessment Sitting Balance and Reactions Static Sitting Normal Balance Ability Dynamic Sitting Normal Balance Ability Standing Balance and Reactions Static Standing Normal Balance Ability Dynamic Standing Good Balance Ability M5 PT-IP Objective Assessments Start: 01/21/25 09:00 Freq: NEEDED Status: Active Protocol: Document 01/23/25 09:22 KJ (Rec: 01/23/25 09:27 KJ [id number]) Orientation Orientation/Cognition Level of Alertness Alert Orientation Name,Age,Birthday,Month,Date,Year,Day of Week,Place, Situation Safety Awareness Understands Safety Issues Comments Discussed safety at home Gross Range of Motion Upper Extremity ROM Assessment Within Functional Limits Lower Extremity ROM Assessment Within Functional Limits Strength Upper Extremity Strength Assessment Within Functional Limits Lower Extremity Strength Assessment Within Functional Limits Other Assessments Other Other Assessments Pt relates proprioceptive issues with eyes closed. Encouraged pt to keep eyes open during mobility. Pt also relates proprioceptive issues when turning head. Observed pt turning head to either side while ambulating without interruption of ambulation or impairment of balance. M7 PT-IP Assessment and Plan Start: 01/21/25 09:00 Freq: NEEDED Status: Active Protocol: Document 01/23/25 09:22 KJ (Rec: 01/23/25 09:27 KJ [id number]) PT Summary Assessment and Plan Potential Rehabilitation Excellent Potential Status of Condition Evolving at Evaluation Summary Progress Towards Progressing Toward Goals Goals Assessment Summary Pt able to go home, needs to be compliant with safety recommendations to avoid falls. Treatment Plan Physical Therapy Gait Training,Balance Retraining Treatment Plan Discharge Recommendations PT Discharge Home with Assistance,Outpatient PT Recommendations
--- NOTE | 2025-01-23 10:33 | PC.NURSE ---
Patient is sitting up in his chair, he has worked with physical therapy and is doing well with fww. He is waiting for his lab results from blood cultures. Just given 10mg of po oxycodone for pain.
[2025-01-23 11:00] VITALS: BP 135/58; PULSE 85; RESP 17; TEMP 36.3; O2SAT 95
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
--- NOTE | 2025-01-23 11:36 | CM.DPNOTE ---
DCP Continued: Reviewed EMR and team rounds for pt?s medical status. Per hospitalist, patient to discharge home with PO abx and will follow up after 7 days. [facility] cancelled the referral sent to [facility] as IV abx at home is no longer necessary. Plan: Discharge orders in, anticipating discharge home with friend to transport when cleared. CM Team will continue to follow for coordination of discharge plans. JAYCE Olivarez
== END 2025-01-23 12:36 | disposition home or self-care (01) | DRG 724 ==
LOC: ED 01-20 10:24 → AC 01-20 10:24
PROVIDERS: Emergency Medicine; Admitting Provider Hospitalist; Emergency Provider Student in an Organized Health Care Education/Training Program; Family Provider Family Medicine; PCP Family Medicine; Visit Provider Hospitalist
DX: R78.81 Bacteremia (principal); R53.1 Weakness; F32.A Depression, unspecified; F41.9 Anxiety disorder, unspecified; M48.061 Spinal stenosis, lumbar region without neurogenic claudication; G43.909 Migraine, unspecified, not intractable, without status migrainosus; M48.02 Spinal stenosis, cervical region; B96.89 Other specified bacterial agents as the cause of diseases classified elsewhere; M54.2 Cervicalgia; Z87.891 Personal history of nicotine dependence; Z98.1 Arthrodesis status
CPT/HCPCS: 36415; 70450; 70496; 70498; 70553; 71045; 72156; 73030; 73120; 80048; 80053; 81003; 83605; 83880; 84484; 85025; 87040; 87077; 87154; 87797; 93005; 93010; 97116; 97163; 97165; 97530; 97535; 99284; G0378; A9579; J1171; J1644; J3375; Q9967

== ENCOUNTER 2025-01-28 23:06 | Emergency (ER) | payer OTHER, SELFPAY ==
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
[2025-01-28 23:23] VITALS: BP 121/84; PULSE 79; RESP 15; TEMP 36.7; O2SAT 96; BMI 30.4
[2025-01-28] MEDS: MORPHINE 4 MG/ML INJ IM (23:39)
== END 2025-01-28 23:48 | disposition home or self-care (01) ==
PROVIDERS: Emergency Provider Student in an Organized Health Care Education/Training Program; Family Provider Family Medicine; PCP Family Medicine
DX: M54.2 Cervicalgia (principal); G89.29 Other chronic pain
CPT/HCPCS: 96372; 99283; J1100; J2272

== ENCOUNTER 2025-01-29 20:01 | Emergency (ER) | payer OTHER, SELFPAY ==
[2025-01-29 20:45] VITALS: BP 162/81; PULSE 100; RESP 18; TEMP 36.4; O2SAT 96; BMI 30.4
== END 2025-01-29 22:32 | disposition left against medical advice (07) ==
PROVIDERS: Emergency Provider Emergency Medicine; Family Provider Family Medicine; PCP Family Medicine
DX: Z53.21 Procedure and treatment not carried out due to patient leaving prior to being seen by health care provider (principal)
CPT/HCPCS: 99281

== ENCOUNTER 2025-02-14 16:29 | Emergency (ER) | payer OTHER, SELFPAY ==
[2025-02-14 16:40] VITALS: BP 136/84; PULSE 87; RESP 17; TEMP 37.1; O2SAT 97; BMI 30.2
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
[2025-02-14] MEDS: KETOROLAC 30 MG/ML VIAL IM (17:31)
[2025-02-14 18:47] VITALS: BP 144/88; PULSE 84; RESP 16; O2SAT 96
== END 2025-02-14 18:45 | disposition home or self-care (01) ==
PROVIDERS: Emergency Provider Physician Assistant; Family Provider Family Medicine; PCP Family Medicine
DX: M54.30 Sciatica, unspecified side (principal)
CPT/HCPCS: 96372; 99283; J1171; J1885

== ENCOUNTER 2025-02-16 13:48 | Emergency (ER) | payer OTHER, SELFPAY ==
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
[2025-02-16 13:59] VITALS: BP 141/93; PULSE 99; RESP 16; TEMP 37; O2SAT 96; BMI 30.2
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
[2025-02-16] MEDS: KETOROLAC 30 MG/ML VIAL IM (15:09)
[2025-02-16 15:41] VITALS: BP 147/82; PULSE 95; RESP 16; O2SAT 95
== END 2025-02-16 15:42 | disposition home or self-care (01) ==
PROVIDERS: Emergency Provider Physician Assistant; Family Provider Family Medicine; PCP Family Medicine
DX: M54.59 Other low back pain (principal)
CPT/HCPCS: 96374; 96375; 99283; J1171; J1885

== ENCOUNTER 2025-02-19 09:12 | Emergency (ER) | payer OTHER, SELFPAY ==
[2025-02-19 09:29] VITALS: PULSE 100; RESP 16; TEMP 37.1; O2SAT 96
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
[2025-02-19] MEDS: KETOROLAC 30 MG/ML VIAL IM (10:25)
[2025-02-19] MEDS: MORPHINE 4 MG/ML INJ IM (10:26)
[2025-02-19 12:04] VITALS: BP 166/80; PULSE 76; RESP 16; O2SAT 98
== END 2025-02-19 12:05 | disposition home or self-care (01) ==
PROVIDERS: Emergency Provider Emergency Medicine; Family Provider Family Medicine; PCP Family Medicine
DX: M48.061 Spinal stenosis, lumbar region without neurogenic claudication (principal); M54.50 Low back pain, unspecified; R53.1 Weakness
CPT/HCPCS: 96372; 99283; J1885; J2272

== ENCOUNTER 2025-02-23 12:20 | Emergency (ER) | payer OTHER, SELFPAY ==
[2025-02-23 13:45] VITALS: BP 126/78; PULSE 90; RESP 18; TEMP 36.7; O2SAT 98; BMI 31.1
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
[2025-02-23] MEDS: KETOROLAC 30 MG/ML VIAL IM (19:00)
[2025-02-23 19:20] VITALS: BP 141/93; PULSE 74; RESP 16; O2SAT 97
[2025-02-23 20:17] VITALS: BP 141/93; PULSE 83; RESP 18; O2SAT 94
== END 2025-02-23 20:17 | disposition home or self-care (01) ==
PROVIDERS: Emergency Provider Emergency Medicine; Family Provider Family Medicine; PCP Family Medicine
DX: M54.50 Low back pain, unspecified (principal); G89.11 Acute pain due to trauma; W18.39XA Other fall on same level, initial encounter
CPT/HCPCS: 96372; 99283; J1171; J1885